=== PATIENT | male | born 1930 | race Caucasian/White ===

== ENCOUNTER 2016-12-16 10:30 | Emergency (ER) | payer OTHER ==
[2016-12-16 10:38] VITALS: BP 147/85; PULSE 92; TEMP 97.2; BMI 36.1
--- NOTE | 2016-12-16 10:54 | PDOC ---
History of Present Illness - General Chief Complaint: Pain Stated Complaint: LEFT FOOT/BIG TOE PAIN Time Seen by Provider: 12/16/16 10:35 - History of Present Illness Initial Comments: 12/16/16 13:09 Chief complaint: Swelling and redness great toe History of present illness: Symptoms since this morning. One prior episode in the distant past. Drinks a considerable amount of alcohol, several beers each night. Eats a lot of red meat. Review of systems: No chest pain, shortness of breath, abdominal pain, nausea, vomiting, diarrhea, visual or focal neurologic symptoms, unsteadiness of gait, urinary tract symptoms, fever/chills, headache, URI symptoms, sore throat, cough. Past medical history: One episode of gout in the past. Otherwise no active medical problems, no medications at home Social/family history lives alone, cares for self, drinks a few beers each night , no tobacco or nonprescription drugs, frequent visitation by friends. Fully ambulatory. Physical exam: Alert and oriented was without well-nourished no acute distress tearful and cooperative Afebrile, vital signs normal There is erythema, swelling, and tenderness of the right MTP J. There is no deformity. There is been no trauma. Impression: Gout Plan: Symptomatic treatment, follow-up by primary physician Dr. Osullivan, diet advice prescribed. To cut down on alcohol consumption as well. Fully ambulatory , feeling much better with treatment in the ER, pain is improved and erythema and swelling have already begun to subside. Past History - Past Medical History Allergies/Adverse Reactions: Allergies Allergy/AdvReac Type Severity Reaction Status Date / Time No Known Allergies Allergy Verified 12/16/16 10:32 Home Medications: Ambulatory Orders Naproxen [Naprosyn] 375 mg PO BID #10 tablet 12/16/16 No Known Home Medication 12/16/16 Anemia: No Asthma: No Cancer: No Cardiac Disorders: No CVA: No COPD: No CHF: No Dementia: No Diabetes: No GI Disorders: No Disorders: No HTN: No Hypercholesterolemia: No Liver Disease: No Seizures: No Thyroid Disease: No Other medical history: DENIES - Psycho/Social/Smoking Cessation Hx Suicidal Ideation: No Smoking History: Never smoked Have you smoked in the past 12 months: No Information on smoking cessation initiated: No Hx Alcohol Use: ("few beers a day") Drug/Substance Use Hx: No Substance Use Type: Alcohol Hx Substance Use Treatment: No *Physical Exam - Vital Signs Last Vital Signs Temp Pulse Resp BP Pulse Ox 97.2 F L 92 H 18 147/85 97 12/16/16 10:30 12/16/16 10:30 12/16/16 10:30 12/16/16 10:30 12/16/16 10:30 ED Treatment Course - LABORATORY CBC & Chemistry Diagram: 12/16/16 11:00 12/16/16 11:00 *DC/Admit/Observation/Transfer Diagnosis at time of Disposition: Gout Qualifiers: Gout site: toe Gout etiology: idiopathic Laterality: right Chronicity: acute Qualified Code(s): M10.071 - Idiopathic gout, right ankle and foot - Discharge Dispostion Disposition: HOME Condition at time of disposition: Improved Admit: No - Prescriptions Prescriptions: Naproxen [Naprosyn] 375 mg PO BID #10 tablet - Referrals Referrals: Bernardino Singh MD [Primary Care Provider] - 1 week - Patient Instructions Printed Discharge Instructions: DI for Gout, Low-Purine Diet
[2016-12-16] MEDS ORDERED: KETOROLAC TROMETHAMINE 60 MG/2 ML VIAL IM ONE (10:56)
[2016-12-16] MEDS ORDERED: KETOROLAC TROMETHAMINE 30 MG/1 ML VIAL ONE (11:03)
[2016-12-16 11:18] LABS: MCH 27.9 pg (25.7-33.7); MCHC 33.2 g/dl (32.0-35.9); MEAN CELL VOLUME 84.2 fl (80-96); MEAN PLT VOLUME 8.4 fl (7.5-11.1); PLATELET COUNT 221 K/MM3 (134-434); RDW 13.4 % (11.9-15.9); WHITE BLOOD COUNT 9.7 K/mm3 (4.0-10.8)
[2016-12-16 11:41] LABS: ALBUMIN 3.7 g/dl (3.5-5.0); ALK PHOS 56 U/L (32-92); ANION GAP 9 (8-16); BILIRUBIN,TOTAL 0.5 mg/dl (0.2-1.0); CALCIUM 9.1 mg/dl (8.4-10.2); CO2 24 mmol/L (22-28); GLUCOSE,RANDOM 144 mg/dl (74-106); SGOT/AST 19 U/L (10-42); SGPT/ALT 10 U/L (10-40); TOT PROT 6.5 g/dl (6.4-8.3)
[2016-12-16 14:43] LABS: PLATELET ESTIMATE ADEQUATE (NORMAL)
== END 2016-12-16 12:35 | disposition home or self-care (01) ==
LOC: FER 10:30
PROC: 3E0233Z Introduction of Anti-inflammatory into Muscle, Percutaneous Approach (ICD-10-PCS; principal; 2016-12-16)
DX: M10.071 Idiopathic gout, right ankle and foot (principal)
CPT/HCPCS: 36415; 80053; 84550; 85025; 96372; 99283-25

== ENCOUNTER 2017-06-29 12:01 | Inpatient (IN) | payer OTHER ==
[2017-06-29] MEDS ORDERED: dilTIAZem HCL 125 MG/25 ML - 25 ML VIAL ONE ×4 (12:18→17:05)
[2017-06-29] MEDS ORDERED: SODIUM CHLORIDE 0.9% 1000 ML INFUS.BAG IV ONE (12:19)
[2017-06-29] MEDS ORDERED: dilTIAZem HCL 50 MG/10 ML - 10 ML VIAL IVPUSH ONE ×3 (12:21→15:36)
[2017-06-29 12:23] VITALS: BMI 21.4
--- NOTE | 2017-06-29 12:25 | PDOC ---
Attending Attestation - Resident Resident Name: Sarah Young - HPI HPI: 06/29/17 15:53 Pt presents to the ED after found on the floor in his appartment. As per the patient, he has been on the floor " on and off" for the last 4 days. Patient reports a heavy drinking history, and was found on the ground surrounded by multiple empty liquor bottles. Denies medical history. - Physicial Exam PE: 06/29/17 16:00 Agree with resident's exam. Patient is tachycardic into the 150's with an irregularly irregular HR. + tongue fasiculations. patient appears dehydrated, with dry skin and tenting. - Medical Decision Making 06/29/17 16:02 Pt presents to the ED with new onset a fib and possible ETOH withdrawal. HR improving after hydration, ativan and cardizem. Will admit to medicine, continue IV hydration and titration of HR with cardizem and ativan.
[2017-06-29] MEDS ORDERED: diazePAM CARPU-JECT 10 MG/2 ML DISP.SYRIN IVPUSH ONE (12:34)
[2017-06-29] MEDS ORDERED: LORazepam 2 MG/ML SDV VIAL ONE ×2 (12:42→13:56)
[2017-06-29 12:53] LABS: BASOPHIL 0.4 % (0-2.0); EOSINOPHIL 0.1 % (0-4.5); MCH 26.5 pg (25.7-33.7); MCHC 32.2 g/dl (32.0-35.9); MEAN CELL VOLUME 82.2 fl (80-96); MEAN PLT VOLUME 7.8 fl (7.5-11.1); NEUTROPHILS 90.1 % (42.8-82.8); PLATELET COUNT 268 K/MM3 (134-434); RDW 14.2 % (11.9-15.9); WHITE BLOOD COUNT 10.7 K/mm3 (4.0-10.0)
[2017-06-29] MEDS ORDERED: SODIUM CHLORIDE 500 ML IV ONE (12:56)
[2017-06-29 13:18] LABS: ANION GAP 15 (8-16); CO2 20 mmol/L (21-32); CREATININE 0.8 mg/dL (0.7-1.3); GLUCOSE,RANDOM 208 mg/dL (74-106); MAGNESIUM 2.3 mg/dL (1.8-2.4); SGOT/AST 36 U/L (15-37); SGPT/ALT 21 U/L (12-78)
[2017-06-29 13:22] LABS: ALK PHOS 58 U/L (45-117); BILIRUBIN,TOTAL 0.8 mg/dL (0.2-1.0); CPK 545 IU/L (39-308); TOT PROT 6.5 g/dl (6.4-8.2); TROPONIN I 0.02 ng/ml (0.00-0.05)
--- NOTE | 2017-06-29 14:21 | PDOC ---
History of Present Illness - General Chief Complaint: Weakness Stated Complaint: WEAKNESS Time Seen by Provider: 06/29/17 12:18 History Source: Patient - History of Present Illness Initial Comments: 06/29/17 16:26 Patient is a 87 y.o. male who BIBAB to our ED after he was found laying on the floor surrounded by bottles of hard liquor. As per EMS police had to break down the door because friends were concerned as patient had not been seen in 2- 3 days though alan notes he saw patient at his baseline (ambulatory, A&O x3 ) 2 days previous. On presentation patient was A&O x3 and states he fell and had either been on the floor 1 day or 4 days, he couldn't recall. Patient denies any pain in his extremities though does note uncertainty regarding head trauma or LOC. Past History - Past Medical History Allergies/Adverse Reactions: Allergies Allergy/AdvReac Type Severity Reaction Status Date / Time No Known Allergies Allergy Verified 06/29/17 12:20 Home Medications: Ambulatory Orders NK [No Known Home Medication] 06/29/17 Anemia: No Asthma: No Cancer: No Cardiac Disorders: No CVA: No COPD: No CHF: No Dementia: No Diabetes: No GI Disorders: No Disorders: No HTN: No Hypercholesterolemia: No Liver Disease: No Seizures: No Thyroid Disease: No - Suicide/Smoking/Psychosocial Hx Smoking History: Unknown if ever smoked Have you smoked in the past 12 months: No Hx Alcohol Use: ("few beers a day") Drug/Substance Use Hx: No Substance Use Type: Alcohol Hx Substance Use Treatment: No Review of Systems - Review of Systems Able to Perform ROS?: No *Physical Exam - Vital Signs Last Vital Signs Temp Pulse Resp BP Pulse Ox 98.5 F 101 H 18 123/72 97 06/29/17 14:06 06/29/17 14:06 06/29/17 14:06 06/29/17 14:06 06/29/17 14:06 - Physical Exam General Appearance: Yes: Thin HEENT: positive: JONATHAN. negative: Scleral Icterus (R), Scleral Icterus (L), TM Bulging, TM Dull, TM Erythema Neck: positive: Trachea midline, Supple Respiratory/Chest: positive: Lungs Clear, Normal Breath Sounds. negative: Decreased Breath Sounds, Paradoxal Breathing, Crackles, Rales, Stridor, Wheezing Cardiovascular: positive: S1, S2, Tachycardia Gastrointestinal/Abdominal: positive: Normal Bowel Sounds, Flat, Soft Musculoskeletal: positive: Normal Inspection. negative: CVA Tenderness, Vertebral Tenderness Extremity: positive: Normal Capillary Refill, Normal Inspection, Pelvis Stable Integumentary: positive: Normal Color, Dry, Warm Neurologic: positive: Fully Oriented, Alert, Other (B/L LE strength 4/5; LE strength 4/5 B/L; palpable pulses, patient able to move all extremities) ED Treatment Course - LABORATORY CBC & Chemistry Diagram: 06/29/17 12:37 06/29/17 12:37 - ADDITIONAL ORDERS Additional order review: Laboratory Results 06/29/17 06/29/17 12:37 12:33 Sodium 139 Potassium 4.2 Chloride 104 Carbon Dioxide 20 L D Anion Gap 15 BUN 26 H D Creatinine 0.8 Creat Clearance w eGFR > 60 Random Glucose 208 H D Lactic Acid 1.9 Calcium 8.0 L Magnesium 2.3 Total Bilirubin 0.8 D AST 36 D ALT 21 Alkaline Phosphatase 58 D Creatine Kinase 545 H Troponin I 0.02 Total Protein 6.5 Albumin 3.0 L 06/29/17 12:37 RBC 4.47 MCV 82.2 MCHC 32.2 RDW 14.2 MPV 7.8 Neutrophils % 90.1 H D Lymphocytes % 3.3 L D Monocytes % 6.1 Eosinophils % 0.1 D Basophils % 0.4 - RADIOLOGY Radiology Studies Ordered: Category Date Time Status HEAD CT WITHOUT CONTRAST [CT] Stat CT Scan 06/29/17 12:19 Taken CHEST X-RAY PORTABLE* [RAD] Stat Radiology 06/29/17 12:51 Taken - Medications Given in the ED: ED Medications Discontinued Medications Generic Name Dose Route Start Last Admin Trade Name Freq PRN Reason Stop Dose Admin Diazepam 10 mg 06/29/17 12:34 06/29/17 12:44 Valium Injection - IVPUSH 06/29/17 12:35 Not Given ONCE ONE Diltiazem HCl 10 mg 06/29/17 12:21 06/29/17 12:23 Cardizem Injection - IVPUSH 06/29/17 12:22 10 mg ONCE ONE Administration Diltiazem HCl 20 mg 06/29/17 13:49 06/29/17 14:04 Cardizem Injection - IVPUSH 06/29/17 13:50 20 mg ONCE ONE Administration Sodium Chloride 500 mls @ 500 mls/hr 06/29/17 12:56 06/29/17 12:56 Normal Saline - IV 06/29/17 13:55 500 mls/hr ASDIR ONE Administration Lorazepam 2 mg 06/29/17 12:42 06/29/17 12:44 Ativan Injection - IVPUSH 06/29/17 12:43 2 mg ONCE ONE Administration Lorazepam 2 mg 06/29/17 13:49 06/29/17 14:04 Ativan Injection - IVPUSH 06/29/17 13:50 2 mg ONCE ONE Administration Sodium Chloride 500 ml 06/29/17 12:19 06/29/17 12:23 Normal Saline - IV 06/29/17 12:20 500 ml ONCE ONE Administration Medical Decision Making - Medical Decision Making 06/29/17 16:33 Patient is a 87 y.o. male who presents after being found down at home surrounded by alcohol bottles. On presentation patient is A&O x3, pelvis stable , able to move all extremities, has no C-spine or vertebral tenderness. As patient is tachycardic (140's) @ presentation, patient given Dilitiazem IV x2 with intermittent resolution of tachycardia. PLAN: 1. CT Head 2. CBC, CMP, Mg, Lactic Acid Reassess 06/29/17 16:39 EKG shows AFib with RVR (HR 145). Lactic Acid wnL, CBC shows no leukocytosis. CT Head negative for acute intracranial process, CXR shows not acute cardiopulmonary process. Patient continues to be A&O x3, concern for alcohol withdrawal - Ativan 2 mg; will order Librium PRN. As patient has new onset Afib - needs full evaluation for possible A/C though likely not indicated given significant risk factors. Patient admitted to inpatient medicine service for further evaluation. Will continue to monitor while in Emergency Department. *DC/Admit/Observation/Transfer Diagnosis at time of Disposition: Alcohol intoxication - Discharge Dispostion Admit: Yes - Referrals Referrals: Bernardino Singh MD [Primary Care Provider] - - Patient Instructions - Post Discharge Activity
[2017-06-29] MEDS ORDERED: chlordiazePOXIDE HCL 25 MG CAPSULE PO ONE (15:03)
[2017-06-29] MEDS ORDERED: dilTIAZem HCL 30 MG TABLET (FP) PO ONE (15:18)
[2017-06-29] MEDS ORDERED: FOLIC ACID INJECTION - 1 MG, THIAMINE HCL 100 MG, MULTIVIT INJECTION ADULT 10 ML in SOD... IVPB ONE (16:58)
[2017-06-29] MEDS ORDERED: LORazepam 1 MG TABLET PO PRN (17:13)
[2017-06-29 17:31] LABS: ARTERIAL BLD GAS O2 SATURATION 97.9 % (90-98.9); ARTERIAL BLOOD GAS HCO3 20.4 meq/L (22-26); ARTERIAL BLOOD GAS PO2 98.2 mmHg (68-100); ARTERIAL BLOOD GAS pH 7.41 (7.35-7.45)
--- NOTE | 2017-06-29 17:34 | HP ---
CHIEF COMPLAINT: Pt was found on floor HISTORY OF PRESENT ILLNESS: Mr. Davis is a 87yo M who was brought by ambulance after being found laying on the floor surrounded by alcohol bottles. As per EMS, the friends had not seen patient in couple of days. According to the charts, the EMS police had to break down the door of the apartment. On presentation in the ED, the patient was AAOx3 , stated that he fell, could not recall for how many days. The patient had denied pain. In the ER, the patient was afebrile and tachycardic. EKG shows new onset Atrial fibrillation with RVR, HR in 130s-140s. Blood pressure was stable. The patient was started on IVF 500mL x2, Cardizem 40mg IV, and Ativan IV 2mg x2. Head CT was negative for acute process. CXR shows possible developing RLL process. PAST MEDICAL HISTORY: None as per chart PAST SURGICAL HISTORY: Unable to assess Social History: Unable to assess Allergies: No Known Allergies Allergy (Verified 06/29/17 12:20) Home Medications Medication Instructions Recorded NK [No Known Home Medication] 06/29/17 REVIEW OF SYSTEMS: Unable to assess PHYSICAL EXAMINATION Vital Signs Temperature 98.5 F 06/29/17 17:56 Pulse Rate 110 H 06/29/17 17:56 Respiratory Rate 18 06/29/17 17:56 Blood Pressure 127/70 06/29/17 17:56 O2 Sat by Pulse Oximetry (%) 98 06/29/17 17:56 GEN: Somnolent, breathing, responds to sternal rub with noises, not in acute distress, looks comfortable HEENT: PERRLA, unable to assess EOM, no facial/scalp wounds, dry eyes, dry mouth , with dried blood near lips CV: S1, S2, irregularly irregular, tachycardic rate LUNG: Unable to fully assess due to poor effort, grossly clear anteriorly ABD: Soft, uncomfortable to deep palpation MSK: No edema, no erythema, upper extremity tremors, tongue fasciculations RECTAL: Stool in rectal vault, no gross blood NEURO: Face is symmetric, PERRLA, pt withdraws all extremities to painful stimuli, difficult to assess Laboratory Last Values WBC 10.7 K/mm3 (4.0-10.0) H D 06/29/17 12:37 RBC 4.47 M/mm3 (4.00-5.60) 06/29/17 12:37 Hgb 11.8 GM/dL (11.7-16.9) 06/29/17 12:37 Hct 36.7 % (35.4-49) 06/29/17 12:37 MCV 82.2 fl (80-96) 06/29/17 12:37 MCH 26.5 pg (25.7-33.7) 06/29/17 12:37 MCHC 32.2 g/dl (32.0-35.9) 06/29/17 12:37 RDW 14.2 % (11.9-15.9) 06/29/17 12:37 Plt Count 268 K/MM3 (134-434) D 06/29/17 12:37 MPV 7.8 fl (7.5-11.1) 06/29/17 12:37 Neutrophils % 90.1 % (42.8-82.8) H D 06/29/17 12:37 Lymphocytes % 3.3 % (8-40) L D 06/29/17 12:37 Monocytes % 6.1 % (3.8-10.2) 06/29/17 12:37 Eosinophils % 0.1 % (0-4.5) D 06/29/17 12:37 Basophils % 0.4 % (0-2.0) 06/29/17 12:37 Puncture Site Right radial 06/29/17 17:25 ABG pH 7.41 (7.35-7.45) 06/29/17 17:25 ABG pCO2 at Pt Temp 32.7 mmHg (35-45) L 06/29/17 17:25 ABG pO2 at Pt Temp 98.2 mmHg (68-100) 06/29/17 17:25 ABG HCO3 20.4 meq/L (22-26) L 06/29/17 17:25 ABG O2 Sat (Measured) 97.9 % (90-98.9) 06/29/17 17:25 ABG O2 Content 15.1 % vol (15-22) 06/29/17 17:25 ABG Base Excess -3.0 meq/l (-2-2) L 06/29/17 17:25 Esdras Test Positive 06/29/17 17:25 O2 Delivery Device Nasal 06/29/17 17:25 Oxygen Flow Rate 2 06/29/17 17:25 PEEP 0.0 cmH2O 06/29/17 17:25 Sodium 139 mmol/L (136-145) 06/29/17 12:37 Potassium 4.2 mmol/L (3.5-5.1) 06/29/17 12:37 Chloride 104 mmol/L (98-107) 06/29/17 12:37 Carbon Dioxide 20 mmol/L (21-32) L D 06/29/17 12:37 Anion Gap 15 (8-16) 06/29/17 12:37 BUN 26 mg/dL (7-18) H D 06/29/17 12:37 Creatinine 0.8 mg/dL (0.7-1.3) 06/29/17 12:37 Creat Clearance w eGFR > 60 (>60) 06/29/17 12:37 Random Glucose 208 mg/dL (74-106) H D 06/29/17 12:37 Lactic Acid 1.9 mmol/L (0.4-2.0) 06/29/17 12:33 Calcium 8.0 mg/dL (8.5-10.1) L 06/29/17 12:37 Magnesium 2.3 mg/dL (1.8-2.4) 06/29/17 12:37 Total Bilirubin 0.8 mg/dL (0.2-1.0) D 06/29/17 12:37 AST 36 U/L (15-37) D 06/29/17 12:37 ALT 21 U/L (12-78) 06/29/17 12:37 Alkaline Phosphatase 58 U/L (45-117) D 06/29/17 12:37 Creatine Kinase 545 IU/L (39-308) H 06/29/17 12:37 Creatine Kinase Index 1.7 % (0.0-5.0) 06/29/17 12:37 CK-MB (CK-2) 9.287 ng/mL (0.5-3.6) H 06/29/17 12:37 Troponin I 0.02 ng/ml (0.00-0.05) 06/29/17 12:37 Total Protein 6.5 g/dl (6.4-8.2) 06/29/17 12:37 Albumin 3.0 g/dl (3.4-5.0) L 11 12:37 Urine Color Yellow 06/29/17 17:52 Urine Appearance Slcloudy 06/29/17 17:52 Urine pH 5.0 (5.0-8.0) 06/29/17 17:52 Ur Specific [place] 1.023 (1.001-1.035) 06/29/17 17:52 Urine Protein Negative (NEGATIVE) 06/29/17 17:52 Urine Glucose (UA) 2+ (NEGATIVE) H 06/29/17 17:52 Urine Ketones 2+ (NEGATIVE) H 06/29/17 17:52 Urine Blood 2+ (NEGATIVE) H 06/29/17 17:52 Urine Nitrite Negative (NEGATIVE) 06/29/17 17:52 Urine Bilirubin Negative (NEGATIVE) 06/29/17 17:52 Urine Urobilinogen Negative mg/dL (0.2-1.0) 06/29/17 17:52 Urine RBC 67 06/29/17 17:52 Urine WBC < 1 06/29/17 17:52 Urine Mucus Rare 06/29/17 17:52 Opiates Screen Negative ng/ml (MRVIVH=127) 06/29/17 17:52 Methadone Screen Negative ng/ml (OCZXYI=067) 06/29/17 17:52 Barbiturate Screen Negative ng/ml (PGCNXX=318) 06/29/17 17:52 Phencyclidine Screen Negative ng/ml (CUTOFF=25) 11 17:52 Ur Amphetamines Screen Negative ng/ml (KAWJXB=754) 06/29/17 17:52 MDMA (Ecstasy) Screen Negative ng/ml (ICAMPX=918) 06/29/17 17:52 Benzodiazepines Screen Negative ng/ml (ZQJUCD=679) 06/29/17 17:52 Cocaine Screen Negative ng/ml (GFHHRX=768) 06/29/17 17:52 U Marijuana (THC) Screen Negative ng/ml (CUTOFF=50) 06/29/17 17:52 Active Medications Generic Name Dose Route Start Last Admin Trade Name Freq PRN Reason Stop Dose Admin Aspirin 300 mg 06/30/17 10:00 Asa - [place] DAILY [facility] Folic Acid 1 mg 06/30/17 10:00 Folic Acid - PO DAILY [facility] Heparin Sodium (Porcine) 5,000 unit 06/29/17 22:00 Heparin - SQ TID KAREN Folic Acid 1 mg/ Thiamine HCl 1,000 mls @ 125 mls/hr 06/29/17 16:58 06/29/17 17:25 100 mg/ Multivitamins/Minerals IVPB 06/30/17 00:57 125 mls/hr 10 ml/ Sodium Chloride ONCE ONE Administration Diltiazem HCl 125 mg/ Dextrose 125 mls @ 5 mls/hr 06/29/17 17:15 06/29/17 17: 49 IV 5 mg/hr TITR KAREN 5 mls/hr Protocol Administration 5 MG/HR Sodium Chloride 1,000 mls @ 100 mls/hr 06/30/17 01:00 Normal Saline - IV ASDIR KAREN Lorazepam 1 mg 06/29/17 17:13 Ativan - PO Q4H PRN WITHDRAWAL(CONT SUBST) Lorazepam 1 mg 06/29/17 17:13 Ativan Injection - IVPUSH Q4H PRN WITHDRAWAL(CONT SUBST) Pantoprazole Sodium 40 mg 06/30/17 10:00 Protonix Iv IVPUSH DAILY [facility] Thiamine HCl 200 mg 06/30/17 10:00 Vitamin B1 Injection - IVPB DAILY [facility] ASSESSMENT/PLAN: Mr. Davis is an 87yo M with no significant PMHx, found on the floor with empty alcohol bottles around him, found to be in Afib with RVR. # New Onset Afib w/ RVR - no prior records, 2/2 acute alcoholic intox vs dehydration vs underlying Afib rhythm - Hemodynamically stable, s/p Cardizem 40mg IV in ER, will place on Cardizem drip, titrate up as needed, tele monitoring - Echo, cardio consult, [id number] high, will hold off on AC for now, fall concern, start ASA # EtOH Abuse - BAL pending, CIWA score Q4H, Ativan PRN (PO if can take), banana bag, folate, thiamine, IVF afterwards # Altered Mental Status - s/p Ativan in ER, unlikely due to focal neurological process, CT neg for acute fx or bleed, Utox neg, ABG wnl # HAGMA - likely 2/2 alcohol intoxication, monitor for now # Mild Leukocytosis - no concern for infection malcolm, ?RLL developing infiltrate on CXR, afebrile, will assess tmrw # Rhabdomyolysis - likely 2/2 prolonged immobility, continue IVF, monitor CPK in AM # RUL Lung Mass - No fevers, ?mass, will monitor, assess tmrw, likely outpatient monitoring once stable # FEN - Banana bag/IVF, elec wnl, NPO for now, will assess S&S eval tmrw # PPx - HSQ TID, Protonix 40mg IVQD, PT ordered # Dispo - Control HR w/ doyle brewer, [place]AN[place] score Q4H, will need to speak with SW/CM once clinical status improves d/w Dr Do and Dr Leela Valle MD - PGY1 Internal Medicine Visit type - Emergency Visit Emergency Visit: Yes ED Registration Date: 06/29/17 Care time: The patient presented to the Emergency Department on the above date and was hospitalized for further evaluation of their emergent condition. - New Patient This patient is new to me today: Yes Date on this admission: 06/29/17 - Critical Care Critical Care patient: No
[2017-06-29 17:35] LABS: ALLENS TEST POSITIVE
[2017-06-29 17:36] LABS: ART PUNCT SITE RIGHT RADIAL; PT. ON O2? YES
[2017-06-29 17:37] LABS: LPM/O2% 2; TYPE OF O2 NASAL
[2017-06-29] MEDS ORDERED: dilTIAZem HCL 50 MG/10 ML - 10 ML VIAL ONE (17:39)
--- NOTE | 2017-06-29 17:42 | PN ---
Teaching Attending Note Name of Resident: Mirna Valle ATTENDING PHYSICIAN STATEMENT Time of evaluation: 5:00 PM I saw and evaluated the patient. I reviewed the resident's note and discussed the case with the resident. I agree with the resident's findings and plan as documented. SUBJECTIVE: Patient seen and examined, responds to sternal rub and winces but unable to assess for further ROS. OBJECTIVE: Vital Signs Period Temp Pulse Resp BP Sys/Cosby Pulse Ox Last 24 Hr 98.5 F-98.5 F 101-155 18-20 110-152/63-101 96-99 Intake & Output 06/26/17 06/27/17 06/28/17 06/29/17 23:59 23:59 23:59 23:59 Weight 125 lb General: sleeping protecting airway, winces to sternal rub, no distress noted HEENT - PERRLA, atrumatic, normocephalic, dry mucous membrane and lips, dried blood from old trauma to the tongue neck soft, supple, no JVD CVS S1S2 irregular, rapid Chest poor effort, unable to appreciate rales or wheezing abdomen soft, NT, ND, positive bowel sounds, no voluntary or involuntary guarding or rigidity extremities no edema Skin decreased turgor neuro PERRLA, facial symmetry, withdraws all extremities symmetrically, unable to check for sensations, DTR bilaterally symmetric, intermittent fasciculations of all extremities Home Medication List Medication Instructions Recorded Confirmed Type NK [No Known Home Medication] 06/29/17 06/29/17 History Active Medications Generic Name Dose Route Start Last Admin Trade Name Freq PRN Reason Stop Dose Admin Heparin Sodium (Porcine) 5,000 unit 06/29/17 22:00 Heparin - SQ TID KAREN Folic Acid 1 mg/ Thiamine HCl 1,000 mls @ 125 mls/hr 06/29/17 16:58 06/29/17 17:25 100 mg/ Multivitamins/Minerals IVPB 06/30/17 00:57 125 mls/hr 10 ml/ Sodium Chloride ONCE ONE Administration Diltiazem HCl 125 mg/ Dextrose 125 mls @ 5 mls/hr 06/29/17 17:15 IV TITR KAREN Protocol 5 MG/HR Sodium Chloride 1,000 mls @ 100 mls/hr 06/30/17 01:00 Normal Saline - IV ASDIR KAREN Lorazepam 1 mg 06/29/17 17:13 Ativan - PO Q4H PRN WITHDRAWAL(CONT SUBST) Lorazepam 1 mg 06/29/17 17:13 Ativan Injection - IVPUSH Q4H PRN WITHDRAWAL(CONT SUBST) Laboratory Results - last 24 hr 06/29/17 06/29/17 06/29/17 12:33 12:37 12:37 WBC 10.7 H D RBC 4.47 Hgb 11.8 Hct 36.7 MCV 82.2 MCH 26.5 MCHC 32.2 RDW 14.2 Plt Count 268 D MPV 7.8 Neutrophils % 90.1 H D Lymphocytes % 3.3 L D Monocytes % 6.1 Eosinophils % 0.1 D Basophils % 0.4 Puncture Site ABG pH ABG pCO2 at Pt Temp ABG pO2 at Pt Temp ABG HCO3 ABG O2 Sat (Measured) ABG O2 Content ABG Base Excess Esdras Test O2 Delivery Device Oxygen Flow Rate PEEP Sodium 139 Potassium 4.2 Chloride 104 Carbon Dioxide 20 L D Anion Gap 15 BUN 26 H D Creatinine 0.8 Creat Clearance w eGFR > 60 Random Glucose 208 H D Lactic Acid 1.9 Calcium 8.0 L Magnesium 2.3 Total Bilirubin 0.8 D AST 36 D ALT 21 Alkaline Phosphatase 58 D Creatine Kinase 545 H Creatine Kinase Index 1.7 CK-MB (CK-2) 9.287 H Troponin I 0.02 Total Protein 6.5 Albumin 3.0 L 06/29/17 17:25 WBC RBC Hgb Hct MCV MCH MCHC RDW Plt Count MPV Neutrophils % Lymphocytes % Monocytes % Eosinophils % Basophils % Puncture Site Right radial ABG pH 7.41 ABG pCO2 at Pt Temp 32.7 L ABG pO2 at Pt Temp 98.2 ABG HCO3 20.4 L ABG O2 Sat (Measured) 97.9 ABG O2 Content 15.1 ABG Base Excess -3.0 L Esdras Test Positive O2 Delivery Device Nasal Oxygen Flow Rate 2 PEEP 0.0 Sodium Potassium Chloride Carbon Dioxide Anion Gap BUN Creatinine Creat Clearance w eGFR Random Glucose Lactic Acid Calcium Magnesium Total Bilirubin AST ALT Alkaline Phosphatase Creatine Kinase Creatine Kinase Index CK-MB (CK-2) Troponin I Total Protein Albumin EKG afib 130s, no acute ST-T changes, artifact Telemetry in ED with Afib 110s CXR reviewed, RUL mass like opacity increased from 05/2016 CT brain no acute process, ventriculomegaly ASSESSMENT AND PLAN: 87 yom found down with ETOH bottles, new onset AFib with RVR, lethargy, and dehydration. -New onset Afib with RVR s/p Cardizem 40 mg IV in Ed place on cardizem drip, cardiology consult, 2D echo. Telemetry, cycle troponins. ASA for now. Address anticoagulation based on clinical course, [id number] and fall concerns. -?ETOH abuse Check ETOH levels/drug screen. banana bag, substance abuse consult when more awake. CIWA protocol with ativan prn and aspiration/seizure precautions. -AMS Suspect ETOh related compounded by ativan received in the ED. Less likely new infection or neurological process. CT brain neg for acute process. No gross deficit on exam Check drug screen, Benzos only when awake with ongoing symptoms of withdrawal -RUL Lung Mass. No fevers/or concerns for respiratory infection currently. Monitor clinically. Outpatient w/u once clinically improved. Will pursue additional testing inhouse if new or concerning symptoms noted. -Rhabdomyolysis IVF, repeat CPK. -Severe dehydration IV hydration. -GIPPX with protonix -DVTPPx with heparin dispo will need PT/OT eval, social work/substance abuse/CM consult once clinically improved. Unable to address code status currently with patient. Anticipate atleast 2-3 days given above. Total admit time spent 55 min.
[2017-06-29] MEDS: DILTIAZEM INJECTION 125 MG in DEXTROSE 5%-WATER - 100 ML IV SCH (17:49)
[2017-06-29 18:00] LABS: URINE APPEARANCE SLCLOUDY; URINE BILIRUBIN NEGATIVE (NEGATIVE); URINE BLOOD 2+ (NEGATIVE); URINE COLOR YELLOW; URINE GLUCOSE (UA) 2+ (NEGATIVE); URINE KETONE 2+ (NEGATIVE); URINE NITRITE NEGATIVE (NEGATIVE); URINE PROTEIN NEGATIVE (NEGATIVE); URINE UROBILINOGEN NEGATIVE mg/dL (0.2-1.0)
[2017-06-29 18:03] LABS: URINE MUCUS RARE; URINE RBC 67; URINE WBC < 1
--- NOTE | 2017-06-29 18:10 | HP ---
Admitting History and Physical - Primary Care Physician PCP: none - Admission Chief Complaint: found down. alcohol withdrawals History of Present Illness: 87M with no known PMH presents to the Ed after being found down by family members. Patient was down on and off for 4 days on a drinking binge per ED charts. Patient found down with multiple bottles in his vicinity. Patient received Ativan for alcohol withdrawals and was lethargic at time of exam. Noted to be in new onset A. fib - Smoking History Smoking history: Unknown if ever smoked Have you smoked in the past 12 months: No - Alcohol/Substance Use Hx Alcohol Use: ("few beers a day") Home Medications - Allergies Allergies/Adverse Reactions: Allergies Allergy/AdvReac Type Severity Reaction Status Date / Time No Known Allergies Allergy Verified 06/29/17 12:20 - Home Medications Home Medications: Ambulatory Orders NK [No Known Home Medication] 06/29/17 Family Disease History - Family Disease History Family History: Unable to Obtain Review of Systems Unable to obtain ROS, reason: lethargic Physical Examination Vital Signs: Vital Signs Temperature 98.5 F 06/29/17 17:56 Pulse Rate 110 H 06/29/17 17:56 Respiratory Rate 18 06/29/17 17:56 Blood Pressure 127/70 06/29/17 17:56 O2 Sat by Pulse Oximetry (%) 98 06/29/17 17:56 Constitutional: Yes: Other (lethargic. Minimally responsive to sternal rub.) Eyes: Yes: PERRL HENT: Yes: Atraumatic, Other (dry mucous membranes) Neck: Yes: Supple Cardiovascular: Yes: Pulse Irregular, S1, S2. No: Murmur Respiratory: Yes: Other (poor resp effort but clear from the limited exam) Gastrointestinal: Yes: Soft. No: Ascites, Distention, Hepatomegaly, Tenderness ...Rectal Exam: Yes: Sphincter Tone Normal, Other (brown blood on glove) Edema: No Peripheral Pulses: Left Doralis Pedis: 1+, Right Dorsalis Pedis: 2+ Integumentary: Yes: Tenting Neurological: Yes: Lethargy Labs: CBC, BMP 06/29/17 12:37 06/29/17 12:37 Imaging - Results X-ray: Report Reviewed, Image Reviewed Cat Scan: Report Reviewed, Image Reviewed EKG: Image Reviewed Assessment/Plan EKG afib 130s, no acute ST-T changes, artifact Telemetry in ED with Afib 110s CXR reviewed, RUL mass like opacity increased from 05/2016 CT brain no acute process, ventriculomegaly 87M found down in apartment with multiple alcohol bottles in his vicinty now with alcohol withdrawals. Problem list: alcohol abuse alcohol withdrawals Concern for impending delirium tremens new onset Afib with RVR altered mental status lethargy Dehydration/volume depletion history of RUL lung mass increased in size mild Rhabdomyolysis Hyperglycemia concern for possible aspiration Plan: Admit to inpatient telemetry cardiac monitoring start cardizem gtt cardiuology consult continue aspirin rectal may need Anticoagulation Trend troponins Fall precautions PT consult aspiration precautions ativan PRN withdrawals-switch to PO librium when able to take PO monitor for seizures check Utox and alcohol level follow up with pulmonology as outpatient for suspicious lung mass banana bag check B12 folate continue with thiamine folate recheck labs in AM Banana bag IVF HSQ PPI PT consult NPO for now Full H&P to follow 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 - New Patient This patient is new to me today: Yes Date on this admission: 06/29/17 - Critical Care Critical Care patient: No
[2017-06-29 18:21] LABS: URINE MARIJUANA THC NEGATIVE ng/ml (CUTOFF=50)
[2017-06-29 21:15] LABS: TROPONIN I 0.03 ng/ml (0.00-0.05)
[2017-06-29 21:27] LABS: URINE LEUK ESTERASE Negative (NEGATIVE)
[2017-06-29] MEDS: HEPARIN NA (PORCINE) 5,000 UNITS/ML 1ML VIAL SQ SCH (22:12)
[2017-06-30] MEDS ORDERED: SODIUM CHLORIDE 1,000 ML IV SCH (01:00)
[2017-06-30] MEDS: HEPARIN NA (PORCINE) 5,000 UNITS/ML 1ML VIAL SQ SCH ×3 (06:24→21:32)
[2017-06-30 07:25] LABS: BASOPHIL 0.4 % (0-2.0); EOSINOPHIL 0.7 % (0-4.5); MCH 27.1 pg (25.7-33.7); MEAN CELL VOLUME 81.9 fl (80-96); MEAN PLT VOLUME 8.2 fl (7.5-11.1); NEUTROPHILS 75.2 % (42.8-82.8); PLATELET COUNT 219 K/MM3 (134-434); RDW 14.4 % (11.9-15.9); WHITE BLOOD COUNT 5.9 K/mm3 (4.0-10.0)
--- NOTE | 2017-06-30 07:59 | PN ---
Physical Exam: SUBJECTIVE: Patient seen and examined. More awake today. Responds to verbal commands, but confused, still mild somnolence. States he is in no pain. OBJECTIVE: Vital Signs Period Temp Pulse Resp BP Sys/Cosby Pulse Ox Last 24 Hr 97.4 F-98.7 F 94-155 18-20 101-152/60-101 96-99 GEN: Improved, less somnolent, AAOx0, difficult to understand words, protecting airway, responds to verbal commands, NAD HEENT: PERRLA, dry eyes, dry mouth, with dried blood near lips CV: S1, S2, irregularly irregular rhythm LUNG: Unable to fully assess due to poor effort, grossly clear anteriorly ABD: Soft, uncomfortable to deep palpation MSK: No edema, no erythema NEURO: Face is symmetric, PERRLA, MSK 4/5 throughout, sensation intact throughout Laboratory Last Values WBC 5.9 K/mm3 (4.0-10.0) D 06/30/17 05:19 RBC 3.75 M/mm3 (4.00-5.60) L 06/30/17 05:19 Hgb 10.2 GM/dL (11.7-16.9) L D 06/30/17 05:19 Hct 30.8 % (35.4-49) L D 06/30/17 05:19 MCV 81.9 fl (80-96) 06/30/17 05:19 MCH 27.1 pg (25.7-33.7) 06/30/17 05:19 MCHC 33.0 g/dl (32.0-35.9) 06/30/17 05:19 RDW 14.4 % (11.9-15.9) 06/30/17 05:19 Plt Count 219 K/MM3 (134-434) 06/30/17 05:19 MPV 8.2 fl (7.5-11.1) 06/30/17 05:19 Neutrophils % 75.2 % (42.8-82.8) 06/30/17 05:19 Lymphocytes % 14.9 % (8-40) D 06/30/17 05:19 Monocytes % 8.8 % (3.8-10.2) 06/30/17 05:19 Eosinophils % 0.7 % (0-4.5) D 06/30/17 05:19 Basophils % 0.4 % (0-2.0) 06/30/17 05:19 Puncture Site Right radial 06/29/17 17:25 ABG pH 7.41 (7.35-7.45) 06/29/17 17:25 ABG pCO2 at Pt Temp 32.7 mmHg (35-45) L 06/29/17 17:25 ABG pO2 at Pt Temp 98.2 mmHg (68-100) 06/29/17 17:25 ABG HCO3 20.4 meq/L (22-26) L 06/29/17 17:25 ABG O2 Sat (Measured) 97.9 % (90-98.9) 06/29/17 17:25 ABG O2 Content 15.1 % vol (15-22) 06/29/17 17:25 ABG Base Excess -3.0 meq/l (-2-2) L 06/29/17 17:25 Esdras Test Positive 06/29/17 17:25 O2 Delivery Device Nasal 06/29/17 17:25 Oxygen Flow Rate 2 06/29/17 17:25 PEEP 0.0 cmH2O 06/29/17 17:25 Sodium 139 mmol/L (136-145) 06/29/17 12:37 Potassium 4.2 mmol/L (3.5-5.1) 06/29/17 12:37 Chloride 104 mmol/L (98-107) 06/29/17 12:37 Carbon Dioxide 20 mmol/L (21-32) L D 06/29/17 12:37 Anion Gap 15 (8-16) 06/29/17 12:37 BUN 26 mg/dL (7-18) H D 06/29/17 12:37 Creatinine 0.8 mg/dL (0.7-1.3) 06/29/17 12:37 Creat Clearance w eGFR > 60 (>60) 06/29/17 12:37 Random Glucose 208 mg/dL (74-106) H D 06/29/17 12:37 Lactic Acid 1.9 mmol/L (0.4-2.0) 06/29/17 12:33 Calcium 8.0 mg/dL (8.5-10.1) L 06/29/17 12:37 Magnesium 2.3 mg/dL (1.8-2.4) 06/29/17 12:37 Total Bilirubin 0.8 mg/dL (0.2-1.0) D 06/29/17 12:37 AST 36 U/L (15-37) D 06/29/17 12:37 ALT 21 U/L (12-78) 06/29/17 12:37 Alkaline Phosphatase 58 U/L (45-117) D 06/29/17 12:37 Creatine Kinase 424 IU/L (39-308) H 06/29/17 19:45 Creatine Kinase Index 1.7 % (0.0-5.0) 06/29/17 19:45 CK-MB (CK-2) 7.522 ng/mL (0.5-3.6) H 06/29/17 19:45 Troponin I 0.03 ng/ml (0.00-0.05) D 06/29/17 19:45 Total Protein 6.5 g/dl (6.4-8.2) 06/29/17 12:37 Albumin 3.0 g/dl (3.4-5.0) L 06/29/17 12:37 Urine Color Yellow 06/29/17 17:52 Urine Appearance Slcloudy 06/29/17 17:52 Urine pH 5.0 (5.0-8.0) 06/29/17 17:52 Ur Specific [place] 1.023 (1.001-1.035) 06/29/17 17:52 Urine Protein Negative (NEGATIVE) 06/29/17 17:52 Urine Glucose (UA) 2+ (NEGATIVE) H 06/29/17 17:52 Urine Ketones 2+ (NEGATIVE) H 06/29/17 17:52 Urine Blood 2+ (NEGATIVE) H 06/29/17 17:52 Urine Nitrite Negative (NEGATIVE) 06/29/17 17:52 Urine Bilirubin Negative (NEGATIVE) 06/29/17 17:52 Urine Urobilinogen Negative mg/dL (0.2-1.0) 06/29/17 17:52 Ur Leukocyte Esterase Negative (NEGATIVE) 06/29/17 17:52 Urine RBC 67 06/29/17 17:52 Urine WBC < 1 06/29/17 17:52 Urine Mucus Rare 06/29/17 17:52 Opiates Screen Negative ng/ml (MRWAEA=320) 06/29/17 17:52 Methadone Screen Negative ng/ml (FZEVVM=691) 06/29/17 17:52 Barbiturate Screen Negative ng/ml (LLTQZT=047) 06/29/17 17:52 Phencyclidine Screen Negative ng/ml (CUTOFF=25) 06/29/17 17:52 Ur Amphetamines Screen Negative ng/ml (VXJABO=572) 06/29/17 17:52 MDMA (Ecstasy) Screen Negative ng/ml (HBNYPP=240) 06/29/17 17:52 Benzodiazepines Screen Negative ng/ml (GAYBJQ=109) 06/29/17 17:52 Cocaine Screen Negative ng/ml (XYRFFS=386) 06/29/17 17:52 U Marijuana (THC) Screen Negative ng/ml (CUTOFF=50) 06/29/17 17:52 Alcohol, Quantitative Cancelled 06/29/17 17:50 Active Medications Generic Name Dose Route Start Last Admin Trade Name Freq PRN Reason Stop Dose Admin Aspirin 300 mg 06/30/17 10:00 Asa - [place] DAILY KAREN Heparin Sodium (Porcine) 5,000 unit 06/29/17 22:00 06/30/17 06:24 Heparin - SQ 5,000 unit TID KAREN Administration Diltiazem HCl 125 mg/ Dextrose 125 mls @ 5 mls/hr 06/29/17 17:15 06/29/17 17: 49 IV 5 mg/hr TITR KAREN 5 mls/hr Protocol Administration 5 MG/HR Sodium Chloride 1,000 mls @ 100 mls/hr 06/30/17 01:00 06/30/17 06:26 Normal Saline - IV 100 mls/hr ASDIR KAREN Administration Lorazepam 1 mg 06/29/17 17:13 Ativan - PO Q4H PRN WITHDRAWAL(CONT SUBST) Lorazepam 1 mg 06/29/17 17:13 Ativan Injection - IVPUSH Q4H PRN WITHDRAWAL(CONT SUBST) Pantoprazole Sodium 40 mg 06/30/17 10:00 Protonix Iv IVPUSH DAILY KAREN Thiamine HCl 200 mg 06/30/17 10:00 Vitamin B1 Injection - IVPB DAILY KAREN ASSESSMENT/PLAN: Mr. Davis is an 87yo M with no significant PMHx, found on the floor with empty alcohol bottles around him, found to be in Afib with RVR. # Altered Mental Status - responsive but AAOx0, ?underlying dementia, unlikely focal neuro process, Utox neg, ABG wnl - Patient's friend Shine Gregg [phone], known pt for 20+years , states pt has been slowly declining mentally for past couple of weeks - With Lung mass (likely CA) along w/ current mental status, will unlikely improve completely, will get palliative on board - Will try to reach closest surrogate ?neice/nephew to discuss goals of care # New Onset Afib w/ RVR - new onset, probably exacerbated by dehydration + alcoholism - HR 100s-110s on Cardizem drip, no tele events, echo wnl, hold off AC due to fall concern + lung mass, cardio on board # EtOH Abuse - Starting to get agitated, changed Ativan IV to 0.5 Q4PRN, cont thiamine IV, folate SQ # RUL Lung Mass - Interval increase in size, along w/ pleural effusions, possible satellite lesions, concern for malignancy # Dehydration - D5NS @ 100cc/hr w/ 500cc bolus IVNS # Mild Leukocytosis - resolved, no concern for infection malcolm # Rhabdomyolysis - improved, 2/2 prolonged immobility, continue IVF # FEN - IVNS 100cc/hr, elec wnl, NPO for now, failed S&S # PPx - HSQ TID, Protonix 40mg IVQD, PT ordered # Dispo - Pt will unlikely improve, concern for lung CA, currently altered, not able to make decisions malcolm, need to speak to SW to contact niece/nephew who are likely his next surrogate (pt is , without children, parents not living) , need to discuss goals of care. d/w Dr Ernestina Valle MD - PGY1 Internal Medicine Visit type - Emergency Visit Emergency Visit: No - New Patient This patient is new to me today: No - Critical Care Critical Care patient: No - Discharge Referral Referred to [facility] No
[2017-06-30 08:09] LABS: ALBUMIN 2.5 g/dl (3.4-5.0); ALK PHOS 47 U/L (45-117); ANION GAP 12 (8-16); BILIRUBIN,TOTAL 0.6 mg/dL (0.2-1.0); CALCIUM 7.5 mg/dL (8.5-10.1); CO2 21 mmol/L (21-32); CREATININE 0.5 mg/dL (0.7-1.3); GLUCOSE,RANDOM 88 mg/dL (74-106); MAGNESIUM 2.3 mg/dL (1.8-2.4); PHOSPHOROUS 2.4 mg/dL (2.5-4.9); SGOT/AST 30 U/L (15-37); SGPT/ALT 16 U/L (12-78); TOT PROT 5.5 g/dl (6.4-8.2)
[2017-06-30] MEDS: PANTOPRAZOLE SODIUM 40 MG VIAL IVPUSH SCH (09:35)
[2017-06-30] MEDS: THIAMINE HCL 200 MG/2 ML VIAL IVPB SCH (09:35)
[2017-06-30] MEDS ORDERED: ASPIRIN 300 MG SUPP.RECT PR SCH (10:00)
[2017-06-30] MEDS ORDERED: FOLIC ACID 1 MG TABLET (FP) PO SCH (10:00)
--- NOTE | 2017-06-30 10:54 | CONSULT ---
Admitting History and Physical - Primary Care Physician PCP: Julio Do - Admission History of Present Illness: Pt presents to the ED after found on the floor in his apartment. As per the patient, he has been on the floor " on and off" for the last 4 days. Patient reports a heavy drinking history, and was found on the ground surrounded by multiple empty liquor bottles Afib Verbal,confused, "Cabrera....Trump" 1980, 89 yo, [facility], wondering why he is here , denies h/o smoking or ETOH intake. Speech imprecise. Cough, congested? CXR- RUL increased masslike opacity, suspicious for malignancy This is my first consult with Mr. Davis. History Source: Medical Record - Smoking History Smoking history: Unknown if ever smoked Have you smoked in the past 12 months: No - Alcohol/Substance Use Hx Alcohol Use: ("few beers a day") History - Admission Reason For Visit: ATRIAL FIBRILLATION - Diagnostics X-ray: Report Reviewed CT Scan: Report Reviewed - General Mental Status: Awake and Alert, Able to Follow Commands, Forgetful, Vague Attention: Intact Ability to Follow Directions: Fair Head/Neck Control: Good - Hearing Hearing: Functional Speech Evaluation - Communication Primary Language: CROATIAN Communication: Yes: Simple Responses Oral Expression Ability: Yes: Mild Impairment, Moderate Impairment - Speech Production Intelligibility: Yes: Mildly Impaired, Moderately Impaired - Speech Characteristics Voice Loudness: Mildly Soft/Quiet Voice Pitch: Yes: Normal Voice Phonatory-based Quality: Yes: Dysphonia, Vocal Wetness Speech Pattern: Impaired Speech Clarity: < 50% Articulation: Yes: Imprecise - Language/Auditory Comprehension Follows: Yes: 1 Stage Simple Commands - Swallow Evaluation/Bedside Assessment Current Nutritional Intake: NPO Dentition: Yes: Edentulous Facial Symmetry at Rest: Symmetrical Facial Symmetry on Retraction: Symmetrical Facial Movement: Controlled Pucker Lips: Normal Smile: Normal Lingual Movement: Normal, Symmetric Lingual Comment: dry, striated,dried blood on tongue and lips Laryngeal Movement: Able to Palpate, Reduced Excursion, Labored,delay initiation , Reduced Velocity Bolus Size: Small Labial Seal: WFL Oral Prep Time: WFL A-P Transit: WFL Pocketing: None Timing of Swallow: Delayed Coughing/Throat Clear: Yes (thin liquids) Change in Voice: Yes (wet, gurgly) Recommendations - Speech Evaluation, Impression/Plan Impression: Impaired intelligibilty,dry tongue,responsive cough with thin liquid , Swallow is delayed in onset, reduced rom and vom of laryngeal excursion. CXR/ CT head noted. - Disposition Discharge to: To be Determined - Dysphagia Impressions/Plan Swallowing Skills: Impaired Dysphagia Impressions: Moderate Impairment, Risk of Aspiration *Silent aspiration: cannot be R/O at bedside Recommendations: MBS w Esophagus (when medically stable.) - Recommendations Medication Administration: Crushed with applesauce
[2017-06-30] MEDS ORDERED: DEXTROSE 5%-NORMAL SALINE 1,000 ML IV SCH (11:30)
--- NOTE | 2017-06-30 11:43 | CON.CARD ---
Cardiology Consult (text) - Consultation Consultation Note: cc: found at home on floor hpi: 87 m no known pmhx found at home on floor. Pt poor historian. Per charts he was found in his apt laying on floor with several bottles of etoh. Pt does not recall events of ending up on floor. Currently he reports feeling well. No cp, sob, palps, dizzy, pnd, orthopnea, le edema. Found to be in afib with rvr in ER and started on dilt. pmh: per hpi psh: nc social: +etoh abuse ros: per hpi; no nvd, cough, walsh, gib, hematuria, dysuria, muscle pains meds: Home Medications Medication Instructions Recorded NK [No Known Home Medication] 06/29/17 pe: Vital Signs Period Temp Pulse Resp BP Sys/Cosby Pulse Ox Last 24 Hr 97.4 F-98.7 F 94-155 18-20 101-152/60-101 96-99 nad no jvd irreg, tachy, s1s2 no mrg cta bl nl eff awake, alert, appropriate no jaundice diaphoresis pos dp pt no carotid bruits abd nt nd pos bs no le e/c/c Laboratory Last Values WBC 5.9 K/mm3 (4.0-10.0) D 06/30/17 05:19 RBC 3.75 M/mm3 (4.00-5.60) L 06/30/17 05:19 Hgb 10.2 GM/dL (11.7-16.9) L D 06/30/17 05:19 Hct 30.8 % (35.4-49) L D 06/30/17 05:19 MCV 81.9 fl (80-96) 06/30/17 05:19 MCH 27.1 pg (25.7-33.7) 06/30/17 05:19 MCHC 33.0 g/dl (32.0-35.9) 06/30/17 05:19 RDW 14.4 % (11.9-15.9) 06/30/17 05:19 Plt Count 219 K/MM3 (134-434) 06/30/17 05:19 MPV 8.2 fl (7.5-11.1) 06/30/17 05:19 Neutrophils % 75.2 % (42.8-82.8) 06/30/17 05:19 Lymphocytes % 14.9 % (8-40) D 06/30/17 05:19 Monocytes % 8.8 % (3.8-10.2) 06/30/17 05:19 Eosinophils % 0.7 % (0-4.5) D 06/30/17 05:19 Basophils % 0.4 % (0-2.0) 06/30/17 05:19 Puncture Site Right radial 06/29/17 17:25 ABG pH 7.41 (7.35-7.45) 06/29/17 17:25 ABG pCO2 at Pt Temp 32.7 mmHg (35-45) L 06/29/17 17:25 ABG pO2 at Pt Temp 98.2 mmHg (68-100) 06/29/17 17:25 ABG HCO3 20.4 meq/L (22-26) L 06/29/17 17:25 ABG O2 Sat (Measured) 97.9 % (90-98.9) 06/29/17 17:25 ABG O2 Content 15.1 % vol (15-22) 06/29/17 17:25 ABG Base Excess -3.0 meq/l (-2-2) L 06/29/17 17:25 Esdras Test Positive 06/29/17 17:25 O2 Delivery Device Nasal 06/29/17 17:25 Oxygen Flow Rate 2 06/29/17 17:25 PEEP 0.0 cmH2O 06/29/17 17:25 Sodium 145 mmol/L (136-145) 06/30/17 05:19 Potassium 3.7 mmol/L (3.5-5.1) 06/30/17 05:19 Chloride 112 mmol/L (98-107) H 06/30/17 05:19 Carbon Dioxide 21 mmol/L (21-32) 06/30/17 05:19 Anion Gap 12 (8-16) 06/30/17 05:19 BUN 17 mg/dL (7-18) D 06/30/17 05:19 Creatinine 0.5 mg/dL (0.7-1.3) L D 06/30/17 05:19 Creat Clearance w eGFR > 60 (>60) 06/30/17 05:19 Random Glucose 88 mg/dL (74-106) D 06/30/17 05:19 Hemoglobin A1c % 5.7 % (4.8-6.0) D 06/30/17 05:19 Lactic Acid 1.9 mmol/L (0.4-2.0) 06/29/17 12:33 Calcium 7.5 mg/dL (8.5-10.1) L 06/30/17 05:19 Phosphorus 2.4 mg/dL (2.5-4.9) L 06/30/17 05:19 Magnesium 2.3 mg/dL (1.8-2.4) 06/30/17 05:19 Total Bilirubin 0.6 mg/dL (0.2-1.0) D 06/30/17 05:19 AST 30 U/L (15-37) 06/30/17 05:19 ALT 16 U/L (12-78) D 06/30/17 05:19 Alkaline Phosphatase 47 U/L (45-117) 06/30/17 05:19 Creatine Kinase 470 IU/L (39-308) H 06/30/17 05:19 Creatine Kinase Index 1.6 % (0.0-5.0) 06/30/17 05:19 CK-MB (CK-2) 7.754 ng/mL (0.5-3.6) H 06/30/17 05:19 Troponin I 0.03 ng/ml (0.00-0.05) D 06/29/17 19:45 Total Protein 5.5 g/dl (6.4-8.2) L 06/30/17 05:19 Albumin 2.5 g/dl (3.4-5.0) L 06/30/17 05:19 Vitamin B12 1618 pg/ml (180-914) H 06/30/17 05:19 Urine Color Yellow 06/29/17 17:52 Urine Appearance Slcloudy 06/29/17 17:52 Urine pH 5.0 (5.0-8.0) 06/29/17 17:52 Ur Specific [place] 1.023 (1.001-1.035) 06/29/17 17:52 Urine Protein Negative (NEGATIVE) 06/29/17 17:52 Urine Glucose (UA) 2+ (NEGATIVE) H 06/29/17 17:52 Urine Ketones 2+ (NEGATIVE) H 06/29/17 17:52 Urine Blood 2+ (NEGATIVE) H 06/29/17 17:52 Urine Nitrite Negative (NEGATIVE) 06/29/17 17:52 Urine Bilirubin Negative (NEGATIVE) 06/29/17 17:52 Urine Urobilinogen Negative mg/dL (0.2-1.0) 06/29/17 17:52 Ur Leukocyte Esterase Negative (NEGATIVE) 06/29/17 17:52 Urine RBC 67 06/29/17 17:52 Urine WBC < 1 06/29/17 17:52 Urine Mucus Rare 06/29/17 17:52 Opiates Screen Negative ng/ml (EOGTRE=912) 06/29/17 17:52 Methadone Screen Negative ng/ml (GZGOXJ=253) 06/29/17 17:52 Barbiturate Screen Negative ng/ml (SLJUTD=508) 06/29/17 17:52 Phencyclidine Screen Negative ng/ml (CUTOFF=25) 06/29/17 17:52 Ur Amphetamines Screen Negative ng/ml (TIYBWG=005) 06/29/17 17:52 MDMA (Ecstasy) Screen Negative ng/ml (GTEYGY=730) 06/29/17 17:52 Benzodiazepines Screen Negative ng/ml (JBXCAM=868) 06/29/17 17:52 Cocaine Screen Negative ng/ml (XXHRGL=587) 06/29/17 17:52 U Marijuana (THC) Screen Negative ng/ml (CUTOFF=50) 06/29/17 17:52 Alcohol, Quantitative < 5.0 mg/dl (0-5) 06/30/17 05:19 tele: afib with rvr to 120s at times echo 06/2017: nl lv/rv, mild tr, mr, rvsp 30-40, mild ao root dil ecg: afib with rvr, nl qtc, no ischemic changes cxr: no chf/infiltrates, +rul mass c/w malignancy a/p: 87 m no known pmhx found at home on floor. new afib with rvr: -unable to take po meds due to aspiration risk -cont dilt gtt for now, can increase prn for better rate control -has indication for ac but he is currently not a safe candidate for ac given his etoh abuse/fall risk as well as a possible lung mass/malignancy -after w/u of lung mass complete could consider asa 81 -cont tele -echo unremarkable -tsh ordered possible fall/syncope: -details of event unclear, pt does not recall how he ended up on floor or for how long -likely related to etoh abuse -echo here unremarkable, no signs acs -cont tele
[2017-06-30] MEDS ORDERED: SODIUM CHLORIDE 500 ML IV STA (14:32)
[2017-06-30] MEDS ORDERED: LORazepam 2 MG/ML SDV VIAL IVPUSH PRN ×2 (15:29→16:37)
--- NOTE | 2017-06-30 17:24 | PN ---
Teaching Attending Note Name of Resident: Mirna Valle ATTENDING PHYSICIAN STATEMENT Time of evaluation: 10:50 AM I saw and evaluated the patient. I reviewed the resident's note and discussed the case with the resident. I agree with the resident's findings and plan as documented. SUBJECTIVE: Patient seen and examined, more awake today, oriented to self but unable to state place or time. Coughing noted. OBJECTIVE: Vital Signs Period Temp Pulse Resp BP Sys/Cosby Pulse Ox Last 24 Hr 97.4 F-98.7 F 94-130 18-20 101-139/60-85 97-99 Intake & Output 06/27/17 06/28/17 06/29/17 06/30/17 23:59 23:59 23:59 23:59 Intake Total 1060 Balance 1060 Weight 125 lb General: sitting in bed in no acute distress, still with some dry skin and mucous membrane CVS: S1S2 irregular, rapid Chest: few occasional rales, no wheezing Abdomen: soft, NT, ND, positive bowel sounds Extremities: no edema Neuro AA Oriented to self, facial symmetry, EOMI, PERRLA, power 4/5 generalized Home Medication List Medication Instructions Recorded Confirmed Type NK [No Known Home Medication] 06/29/17 06/29/17 History Active Medications Generic Name Dose Route Start Last Admin Trade Name Freq PRN Reason Stop Dose Admin Aspirin 300 mg 06/30/17 10:00 06/30/17 09:35 Asa - [place] 300 mg DAILY KAREN Administration Folic Acid 1 mg 06/30/17 13:30 Folic Acid Injection - SQ DAILY KAREN Heparin Sodium (Porcine) 5,000 unit 06/29/17 22:00 06/30/17 15:47 Heparin - SQ 5,000 unit TID KAREN Administration Diltiazem HCl 125 mg/ Dextrose 125 mls @ 5 mls/hr 06/29/17 17:15 06/30/17 11: 50 IV 10 mg/hr TITR KAREN 10 mls/hr Protocol Titration 5 MG/HR Dextrose/Sodium Chloride 1,000 mls @ 100 mls/hr 06/30/17 11:30 06/30/17 11:50 D5-Ns - IV 100 mls/hr ASDIR KAREN Administration Lorazepam 1 mg 06/29/17 17:13 Ativan - PO Q4H PRN WITHDRAWAL(CONT SUBST) Lorazepam 0.5 mg 06/30/17 16:37 Ativan Injection - IVPUSH Q4H PRN WITHDRAWAL(CONT SUBST) Pantoprazole Sodium 40 mg 06/30/17 10:00 06/30/17 09:35 Protonix Iv IVPUSH 40 mg DAILY KAREN Administration Thiamine HCl 200 mg 06/30/17 10:00 06/30/17 09:35 Vitamin B1 Injection - IVPB 200 mg DAILY KAREN Administration CT chest RUL lung mass, larger than before ASSESSMENT AND PLAN: 87 yom unclear PMHx, found on floor with alcohol bottles, brought in with AMS, found with new onset Afib with RVR. -AMS, suspect encephalopathy from dehydration/alcohol, no clinical evidence of infectious process. -New onset afib with RVR -?ETOH abuse with withdrawal -RUL lung mass -Aspiration risk -Plan: More awake and alert, continue to hydrate and monitor. CIWA protocol with low dose ativan. Cardizem drip to 10 mg/hr, titrate up as needed. ASA as able to take PO. Hold off on anticoagulation given fall risk, ETOH abuse concern now with enlarging lung mass. Monitor respiratory status, aspiration precautions, low threshold for antibiotics. High risk for PNA, monitor fevers, worsening WBC or respiratory status. Speech/swallow eval, palliative care input, attempt to address surrogate/decision maker to discuss overall goals of care given likely progressive cognitive decline, suspect poor baseline functional status, now with aspiration risk/NPO status and enlarging lung mass. PT/OT eval, CM consult for d/c planning.
[2017-06-30] MEDS: DILTIAZEM INJECTION 125 MG in DEXTROSE 5%-WATER - 100 ML IV SCH (18:12)
[2017-06-30] MEDS: FOLIC ACID 5 MG/1 ML SQ SCH (18:12)
[2017-07-01] MEDS: HEPARIN NA (PORCINE) 5,000 UNITS/ML 1ML VIAL SQ SCH ×3 (06:24→21:17)
[2017-07-01 07:50] LABS: MCH 26.8 pg (25.7-33.7); MCHC 32.5 g/dl (32.0-35.9); MEAN CELL VOLUME 82.4 fl (80-96); MEAN PLT VOLUME 7.8 fl (7.5-11.1); PLATELET COUNT 209 K/MM3 (134-434); RDW 14.3 % (11.9-15.9); WHITE BLOOD COUNT 3.8 K/mm3 (4.0-10.0)
[2017-07-01 08:06] LABS: ANION GAP 5 (8-16); CALCIUM 7.2 mg/dL (8.5-10.1); CO2 27 mmol/L (21-32); CREATININE 0.6 mg/dL (0.7-1.3); GLUCOSE,RANDOM 132 mg/dL (74-106)
[2017-07-01 08:15] LABS: THYROID STIMULATING HORMONE 1.87 uIU/ml (0.358-3.74)
[2017-07-01] MEDS ORDERED: DEXTROSE 5%-NORMAL SALINE 980 ML with POTASSIUM CHLORIDE 40 MEQ IVPB SCH (09:15)
[2017-07-01] MEDS ORDERED: KCL 10 MEQ IVPB 10 MEQ/100 ML INFUS.BAG IVPB SCH (09:45)
[2017-07-01] MEDS: THIAMINE HCL 200 MG/2 ML VIAL IVPB SCH (10:26)
[2017-07-01] MEDS: PANTOPRAZOLE SODIUM 40 MG VIAL IVPUSH SCH (10:26)
[2017-07-01] MEDS ORDERED: POTASSIUM CHLORIDE 20 MEQ in SODIUM CHLORIDE 250 ML IVPB ONE (10:30)
[2017-07-01] MEDS: FOLIC ACID 5 MG/1 ML SQ SCH (10:30)
[2017-07-01] MEDS: ASPIRIN 300 MG SUPP.RECT RC SCH (10:31)
[2017-07-01] MEDS: D5-NS + 20 MEQ KCL - 20 MEQ/1,000 ML INFUS.BAG IV SCH (10:45)
--- NOTE | 2017-07-01 10:48 | PN ---
Teaching Attending Note Name of Resident: Jay Jay Otero ATTENDING PHYSICIAN STATEMENT Time of evaluation: 8:45 AM I saw and evaluated the patient. I reviewed the resident's note and discussed the case with the resident. I agree with the resident's findings and plan as documented. SUBJECTIVE: Patient seen and examined. More awake, oriented to self, but not to place or time, able to converse well and answer questions appropriately.Denies any pain, dypsnea, dizziness, fevers/chills, abdominal or urinary symptoms. Doesn't report to drinking a lot. Unsure how ended up in the hospital. OBJECTIVE: Vital Signs Period Temp Pulse Resp BP Sys/Cosby Pulse Ox Last 24 Hr 97.7 F-98.8 F 72-130 20-20 117-155/66-86 96 Intake & Output 06/28/17 06/29/17 06/30/17 07/01/17 23:59 23:59 23:59 23:59 Intake Total 1060 1200 Balance 1060 1200 Weight 125 lb General: sitting in bed in no acute distress, dry lips, dried blood on tongue, no use of acessory muscles of respiration CVS: S1S2 irregular Chest: poor effort, no rales or wheezing appreciated Abdomen: soft, NT, ND, positive bowel sounds extremities: no edema, no tremors Neuro: AA, oriented to self, speech occasionally incomprehensible from dried tongue/lips, facial symmetry, no pronator drift, sensation intact to light touch , follows commands appropriately Home Medication List Medication Instructions Recorded Confirmed Type NK [No Known Home Medication] 06/29/17 06/29/17 History Active Medications Generic Name Dose Route Start Last Admin Trade Name Shaheed PRN Reason Stop Dose Admin Aspirin 300 mg 07/01/17 06:02 07/01/17 10:31 Asa - RC 300 mg DAILY KAREN Administration Folic Acid 1 mg 06/30/17 13:30 07/01/17 10:30 Folic Acid Injection - SQ 1 mg DAILY KAREN Administration Heparin Sodium (Porcine) 5,000 unit 06/29/17 22:00 07/01/17 06:24 Heparin - SQ 5,000 unit TID KAREN Administration Dextrose/Sodium Chloride 20 meq in 1,000 mls @ 100 mls/hr 07/01/17 09:15 07/07 10:45 Dextrose 5%-Normal Saline+20 Meq Kcl - IV 100 mls/hr ASDIR KAREN Administration Potassium Chloride 20 meq/ 260 mls @ 130 mls/hr 07/01/17 10:30 Sodium Chloride IVPB 07/01/17 12:29 ONCE ONE Lorazepam 1 mg 06/29/17 17:13 Ativan - PO Q4H PRN WITHDRAWAL(CONT SUBST) Lorazepam 0.5 mg 06/30/17 16:37 Ativan Injection - IVPUSH Q4H PRN WITHDRAWAL(CONT SUBST) Pantoprazole Sodium 40 mg 06/30/17 10:00 07/01/17 10:26 Protonix Iv IVPUSH 40 mg DAILY KAREN Administration Thiamine HCl 200 mg 06/30/17 10:00 07/01/17 10:26 Vitamin B1 Injection - IVPB 200 mg DAILY KAREN Administration Laboratory Results - last 24 hr 06/30/17 06/30/17 07/01/17 16:54 23:05 06:00 WBC RBC Hgb Hct MCV MCH MCHC RDW Plt Count MPV Sodium 147 H Potassium 3.1 L Chloride 115 H Carbon Dioxide 27 D Anion Gap 5 L BUN 9 D Creatinine 0.6 L POC Glucometer 105 137 Random Glucose 132 H D Calcium 7.2 L TSH 1.87 D 07/01/17 07/01/17 06:00 06:05 WBC 3.8 L D RBC 3.61 L Hgb 9.7 L Hct 29.8 L MCV 82.4 MCH 26.8 MCHC 32.5 RDW 14.3 Plt Count 209 MPV 7.8 Sodium Potassium Chloride Carbon Dioxide Anion Gap BUN Creatinine POC Glucometer 130 Random Glucose Calcium TSH ASSESSMENT AND PLAN: 87 yom unclear PMHx, found on floor with alcohol bottles, brought in with AMS, found with new onset Afib with RVR. -AMS, suspect encephalopathy from dehydration/alcohol, no clinical evidence of infectious process. -New onset afib with RVR,reverted to NSR on 06/30, off cardizem drip -?ETOH abuse with withdrawal -RUL lung mass, with episode of scant hemoptysis -Anemia, suspect hemoconcentrated on admission now trended down with hydration with scant hemoptysis, less likely ongoing bleed. -Aspiration risk -Rhabdymyolysis -Hypoglycemia -Hypokalemia -Plan: Awake and alert, Ox1, but able to converse appropriately follow commands and comprehend conversations. Reverted to NSR, off cardizem drip, monitor for now, metoprolol IV prn for SBP > 120 sustained. Transition to PO when able. ASA when able to take PO. 2D echo noted. Cardiology input appreciated. Given fall risk, ?ETOH abuse and now with enlarging lung mass, poor candidate for full dose anti-coagulation. Low dose ativan prn for withdrawal, folate/thiamine/MVI. Change IVF to D5NS with K, Replete K Daily CBC and monitor for new episodes of hemoptysis, pulmonary consult. Speech/swallow eval noted, check MBS, NPO. Reevaluate as mental status improves. Unlikely would want PEG based on overall clinical status and patient' s current expressed wishes. If continues to fail, will need to address option of palliative care and comfort feeds. DIscussed wiht patient in detail about enlarging lung mass. Patient Ox1 but able to comprehend questions, relay understanding and answer appropriately. Yariel would want his lung mass to be 'left alone', also when discussed code status, expresses wishes of not wanting CPR/intubation and would want to be ' left alone'. Yariel has a sister that lives in [place], unable to provide contact info. Will contact social work and palliative to address overall goals of care. COntinue goals of discussion with patient as mental status continues to improve and attempt to reach next of kin. Heparin with caution, monitor CBC. PT/OT eval and CM/social work/palliative care consult. Dispo planning pending above.
--- NOTE | 2017-07-01 12:44 | PN ---
Progress Note (short form) - Note Progress Note: s: no cp sob palps dizzy o: Vital Signs Period Temp Pulse Resp BP Sys/Cosby Pulse Ox Last 24 Hr 97.7 F-98.8 F 72-114 20-20 117-155/66-86 93-97 nad no jvd irreg, tachy, s1s2 no mrg cta bl nl eff awake, alert, appropriate no jaundice diaphoresis abd nt nd pos bs no le e/c/c Current Medications Generic Name Dose Route Start Last Admin Trade Name Freq PRN Reason Stop Dose Admin Aspirin 300 mg 07/01/17 06:02 07/01/17 10:31 Asa - RC 300 mg DAILY KAREN Administration Folic Acid 1 mg 06/30/17 13:30 07/01/17 10:30 Folic Acid Injection - SQ 1 mg DAILY KAREN Administration Heparin Sodium (Porcine) 5,000 unit 06/29/17 22:00 07/01/17 06:24 Heparin - SQ 5,000 unit TID KAREN Administration Dextrose/Sodium Chloride 20 meq in 1,000 mls @ 100 mls/hr 07/01/17 09:15 07/07 10:45 Dextrose 5%-Normal Saline+20 Meq Kcl - IV 100 mls/hr ASDIR KAREN Administration Lorazepam 1 mg 06/29/17 17:13 Ativan - PO Q4H PRN WITHDRAWAL(CONT SUBST) Lorazepam 0.5 mg 06/30/17 16:37 Ativan Injection - IVPUSH Q4H PRN WITHDRAWAL(CONT SUBST) Metoprolol Tartrate 5 mg 07/01/17 11:12 Lopressor Injection - IVPUSH Q4H PRN HYPERTENSION Pantoprazole Sodium 40 mg 06/30/17 10:00 07/01/17 10:26 Protonix Iv IVPUSH 40 mg DAILY KAREN Administration Thiamine HCl 200 mg 06/30/17 10:00 07/01/17 10:26 Vitamin B1 Injection - IVPB 200 mg DAILY KAREN Administration CBC, BMP 07/01/17 06:00 07/01/17 06:00 tele: sr, pacs echo 06/2017: nl lv/rv, mild tr, mr, rvsp 30-40, mild ao root dil ecg: afib with rvr, nl qtc, no ischemic changes cxr: no chf/infiltrates, +rul mass c/w malignancy a/p: 87 m no known pmhx found at home on floor. new afib with rvr: -unable to take po meds due to aspiration risk -now in sr, converted on own -has indication for ac but he is currently not a safe candidate for ac given his etoh abuse/fall risk as well as a possible lung mass/malignancy -after w/u of lung mass complete could consider asa 81 -cont tele -echo unremarkable -tsh wnl possible fall/syncope: -details of event unclear, pt does not recall how he ended up on floor or for how long -likely related to etoh abuse -echo here unremarkable, no signs acs -cont tele
[2017-07-01 13:11] LABS: MAGNESIUM 2.2 mg/dL (1.8-2.4)
--- NOTE | 2017-07-01 15:01 | EKG ---
Test Reason : Blood Pressure : / mmHG Vent. Rate : 070 BPM Atrial Rate : 070 BPM P-R Int : 178 ms QRS Dur : 092 ms QT Int : 540 ms P-R-T Axes : 015 -24 060 degrees QTc Int : 583 ms NORMAL SINUS RHYTHM WITH SUPRAVENTRICULAR PREMATURE BEATS. INTRAATRIAL CONDUCTION ABNORMALITY INCOMPLETE RIGHT BUNDLE BRANCH BLOCK NONSPECIFIC T WAVE ABNORMALITY ABNORMAL ECG WHEN COMPARED WITH ECG OF 29-JUN-2017 12:16, SINUS RHYTHM HAS REPLACED ATRIAL FIBRILLATION VENT. RATE HAS DECREASED BY 75 BPM NONSPECIFIC T WAVE ABNORMALITY NO LONGER EVIDENT IN INFERIOR LEADS NONSPECIFIC T WAVE ABNORMALITY, WORSE IN LATERAL LEADS Confirmed by SLICK SNOW MD ([id number]) on 07/01/2017 3:01:21 PM Referred By: Nora GUEVARA Confirmed By:SLICK SNOW MD
--- NOTE | 2017-07-01 15:30 | CON.PULM ---
Consult Consult Specialty:: PULMONARY Referred by:: Dr. Do Reason for Consultation:: lung mass - History of Present Illness Chief Complaint: found on floor History of Present Illness: 87yo male without significant past medical history who was admitted after being found on the floor with several bottles of alcohol. Found to be in rapid afib, started on cardizem gtt and transferred to telemetry. During admission work up, CT chest was done showing a 4.5cm RUL mass. Prior imaging done in February 2016 as outpt showed a 2.7cm nodule at that time. Pt is a poor historian but denies fevers, chills or night sweats. He does endorse unintentional weight loss. He is a former smoker. Does not know of any cancer in the family. - History Source History Provided By: Patient, Medical Record Limitations to Obtaining History: Clinical Condition - Alcohol/Substance Use Hx Alcohol Use: ("few beers a day") - Smoking History Smoking history: Unknown if ever smoked Have you smoked in the past 12 months: No Home Medications - Allergies Allergies/Adverse Reactions: Allergies Allergy/AdvReac Type Severity Reaction Status Date / Time No Known Allergies Allergy Verified 06/29/17 12:20 - Home Medications Home Medications: Ambulatory Orders NK [No Known Home Medication] 06/29/17 Review of Systems - Review of Systems Constitutional: reports: Unintentional Wgt. Loss. denies: Chills, Fever Eyes: denies: Recent Change in Vision HENT: denies: Nasal Congestion, Throat Pain Neck: denies: Stiffness, Tenderness Cardiovascular: denies: Chest Pain, Shortness of Breath Respiratory: denies: Cough, Wheezing Gastrointestinal: denies: Abdominal Pain, Nausea, Vomiting Genitourinary: denies: Dysuria, Hematuria Musculoskeletal: denies: Joint Pain Neurological: denies: Dizziness, Headache Physical Exam Vital Sings: Vital Signs Temperature 98.5 F 07/01/17 14:39 Pulse Rate 90 07/01/17 14:39 Respiratory Rate 20 07/01/17 08:25 Blood Pressure 144/73 07/01/17 14:39 O2 Sat by Pulse Oximetry (%) 97 07/01/17 11:22 Constitutional: Yes: Thin, Other (disheveled) Eyes: Yes: Conjunctiva Clear, EOM Intact HENT: Yes: Atraumatic, Normocephalic Neck: Yes: Supple, Trachea Midline Cardiovascular: Yes: Regular Rate and Rhythm Respiratory: Yes: Diminished (distant breath sounds) ...Clubbing: No Gastrointestinal: Yes: Normal Bowel Sounds, Soft. No: Tenderness Edema: No Neurological: Yes: Alert Labs: CBC, BMP 07/01/17 06:00 07/01/17 06:00 ABG Results ABG pH 7.41 (7.35-7.45) 06/29/17 17:25 ABG pCO2 at Pt Temp 32.7 mmHg (35-45) L 06/29/17 17:25 ABG pO2 at Pt Temp 98.2 mmHg (68-100) 06/29/17 17:25 ABG HCO3 20.4 meq/L (22-26) L 06/29/17 17:25 ABG O2 Sat (Measured) 97.9 % (90-98.9) 06/29/17 17:25 ABG O2 Content 15.1 % vol (15-22) 06/29/17 17:25 ABG Base Excess -3.0 meq/l (-2-2) L 06/29/17 17:25 Imaging - Results Cat Scan: Report Reviewed, Image Reviewed (RUL mass) Problem List - Problems (1) Atrial fibrillation with rapid ventricular response Code(s): I48.91 - UNSPECIFIED ATRIAL FIBRILLATION (2) Lung mass Code(s): R91.8 - OTHER NONSPECIFIC ABNORMAL FINDING OF LUNG FIELD (3) Alcohol dependence Code(s): F10.20 - ALCOHOL DEPENDENCE, UNCOMPLICATED (4) Pulmonary hypertension Code(s): I27.20 - PULMONARY HYPERTENSION, UNSPECIFIED Assessment/Plan New Onset Atrial Fibrillation with RVR now in sinus Lung Mass suspicious for malignancy Pulmonary HTN Alcohol Dependence - mass is peripheral, can likely obtain diagnosis with CT guided needle biopsy - if biopsy nondiagnostic, can consider bronchoscopy as it does appear endobronchial but then would require anesthesia and cardiac clearance - will order LE dopplers to investigate etiology of new onset atrial fibrillation - anticoagulation per cardiology - monitor for withdrawal symptoms - will follow with you Thank you for this consult Ehsan Richter MD
[2017-07-02] MEDS: HEPARIN NA (PORCINE) 5,000 UNITS/ML 1ML VIAL SQ SCH ×3 (06:12→21:45)
[2017-07-02] MEDS: AMPICILLIN NA/SULBACTAM NA 3 GM in SODIUM CHLORIDE 100 ML IVPB SCH ×3 (08:45→21:45)
[2017-07-02 09:04] LABS: ALBUMIN 2.1 g/dl (3.4-5.0); ALK PHOS 51 U/L (45-117); ANION GAP 11 (8-16); BILIRUBIN,TOTAL 0.8 mg/dL (0.2-1.0); CALCIUM 7.2 mg/dL (8.5-10.1); CO2 24 mmol/L (21-32); CREATININE 0.5 mg/dL (0.7-1.3); GLUCOSE,RANDOM 84 mg/dL (74-106); SGOT/AST 18 U/L (15-37); SGPT/ALT 14 U/L (12-78); TOT PROT 4.9 g/dl (6.4-8.2)
[2017-07-02] MEDS: D5-NS + 20 MEQ KCL - 20 MEQ/1,000 ML INFUS.BAG IV SCH (09:22)
[2017-07-02] MEDS: FOLIC ACID 5 MG/1 ML SQ SCH (09:23)
[2017-07-02] MEDS: ASPIRIN 300 MG SUPP.RECT RC SCH (09:23)
[2017-07-02] MEDS: THIAMINE HCL 200 MG/2 ML VIAL IVPB SCH (09:27)
[2017-07-02] MEDS: PANTOPRAZOLE SODIUM 40 MG VIAL IVPUSH SCH (09:27)
[2017-07-02] MEDS ORDERED: KCL 10 MEQ IVPB 10 MEQ/100 ML INFUS.BAG IVPB SCH (09:45)
[2017-07-02 09:49] LABS: BASOPHIL 1.1 % (0-2.0); EOSINOPHIL 1.7 % (0-4.5); MCH 26.9 pg (25.7-33.7); MCHC 32.8 g/dl (32.0-35.9); NEUTROPHILS 67.1 % (42.8-82.8); PLATELET COUNT 205 K/MM3 (134-434); RDW 14.3 % (11.9-15.9); WHITE BLOOD COUNT 4.3 K/mm3 (4.0-10.0)
[2017-07-02] MEDS ORDERED: POTASSIUM CHLORIDE 30 MEQ in SODIUM CHLORIDE 300 ML IVPB ONE (10:30)
--- NOTE | 2017-07-02 11:51 | PN ---
Progress Note (short form) - Note Progress Note: s: no cp sob palps dizzy o: Vital Signs Period Temp Pulse Resp BP Sys/Cosby Pulse Ox Last 24 Hr 97.6 F-99.8 F 73-98 18-20 144-163/71-92 93-97 nad no jvd irreg, tachy, s1s2 no mrg cta bl nl eff awake, alert, appropriate no jaundice diaphoresis abd nt nd pos bs no le e/c/c Current Medications Generic Name Dose Route Start Last Admin Trade Name Freq PRN Reason Stop Dose Admin Aspirin 300 mg 07/01/17 06:02 07/02/17 09:23 Asa - RC 300 mg DAILY KAREN Administration Folic Acid 1 mg 06/30/17 13:30 07/02/17 09:23 Folic Acid Injection - SQ 1 mg DAILY KAREN Administration Heparin Sodium (Porcine) 5,000 unit 06/29/17 22:00 07/02/17 06:12 Heparin - SQ 5,000 unit TID KAREN Administration Dextrose/Sodium Chloride 20 meq in 1,000 mls @ 100 mls/hr 07/01/17 09:15 08/06 09:22 Dextrose 5%-Normal Saline+20 Meq Kcl - IV 100 mls/hr ASDIR KAREN Administration Ampicillin Sodium/Sulbactam 100 mls @ 200 mls/hr 07/02/17 09:00 07/02/17 08: 45 Sodium 3 gm/ Sodium Chloride IVPB 200 mls/hr Q6H-IV KAREN Administration Potassium Chloride 30 meq/ 315 mls @ 88.333 mls/hr 07/02/17 10:30 07/02/17 10 :40 Sodium Chloride IVPB 07/02/17 14:03 88.333 mls/hr ONCE ONE Administration Lorazepam 1 mg 06/29/17 17:13 Ativan - PO Q4H PRN WITHDRAWAL(CONT SUBST) Lorazepam 0.5 mg 06/30/17 16:37 Ativan Injection - IVPUSH Q4H PRN WITHDRAWAL(CONT SUBST) Metoprolol Tartrate 5 mg 07/01/17 11:12 Lopressor Injection - IVPUSH Q4H PRN HYPERTENSION Pantoprazole Sodium 40 mg 06/30/17 10:00 07/02/17 09:27 Protonix Iv IVPUSH 40 mg DAILY KAREN Administration Thiamine HCl 200 mg 06/30/17 10:00 07/02/17 09:27 Vitamin B1 Injection - IVPB 200 mg DAILY KAREN Administration CBC, BMP 07/02/17 06:15 07/02/17 06:15 tele: sr, pacs echo 06/2017: nl lv/rv, mild tr, mr, rvsp 30-40, mild ao root dil ecg: afib with rvr, nl qtc, no ischemic changes cxr: no chf/infiltrates, +rul mass c/w malignancy a/p: 87 m no known pmhx found at home on floor. new afib with rvr: -unable to take po meds due to aspiration risk -now in sr, converted on own -has indication for ac but he is currently not a safe candidate for ac given his etoh abuse/fall risk as well as lung mass/malignancy -echo unremarkable -tsh wnl possible fall/syncope: -details of event unclear, pt does not recall how he ended up on floor or for how long -likely related to etoh abuse -echo here unremarkable, no signs acs
--- NOTE | 2017-07-02 12:03 | PN ---
Teaching Attending Note Name of Resident: Jay Jay Otero ATTENDING PHYSICIAN STATEMENT Time of evaluation: 8:35 AM I saw and evaluated the patient. I reviewed the resident's note and discussed the case with the resident. I agree with the resident's findings and plan as documented. SUBJECTIVE: Patient seen and examined, awake, oriented to self, no complaints. OBJECTIVE: Vital Signs Period Temp Pulse Resp BP Sys/Cosby Pulse Ox Last 24 Hr 97.6 F-99.8 F 71-98 18-20 144-163/71-92 93-97 Intake & Output 06/29/17 06/30/17 07/01/17 07/02/17 23:59 23:59 23:59 23:59 Intake Total 1060 1200 600 Balance 1060 1200 600 Weight 125 lb General: lying in bed in no acute distress CVS: S1S2 irregular Chest: poor effort, no rales or wheezing appreciated Abdomen: soft, NT, ND, positive bowel sounds Extremities: no edema Neuro AA, oriented to self, unchanged exam Home Medication List Medication Instructions Recorded Confirmed Type NK [No Known Home Medication] 06/29/17 06/29/17 History Active Medications Generic Name Dose Route Start Last Admin Trade Name Shaheed PRN Reason Stop Dose Admin Aspirin 300 mg 07/01/17 06:02 07/02/17 09:23 Asa - RC 300 mg DAILY KAREN Administration Folic Acid 1 mg 06/30/17 13:30 07/02/17 09:23 Folic Acid Injection - SQ 1 mg DAILY KAREN Administration Heparin Sodium (Porcine) 5,000 unit 06/29/17 22:00 07/02/17 06:12 Heparin - SQ 5,000 unit TID KAREN Administration Dextrose/Sodium Chloride 20 meq in 1,000 mls @ 100 mls/hr 07/01/17 09:15 08/06 09:22 Dextrose 5%-Normal Saline+20 Meq Kcl - IV 100 mls/hr ASDIR KAREN Administration Ampicillin Sodium/Sulbactam 100 mls @ 200 mls/hr 07/02/17 09:00 07/02/17 08: 45 Sodium 3 gm/ Sodium Chloride IVPB 200 mls/hr Q6H-IV KAREN Administration Potassium Chloride 30 meq/ 315 mls @ 88.333 mls/hr 07/02/17 10:30 07/02/17 10 :40 Sodium Chloride IVPB 07/02/17 14:03 88.333 mls/hr ONCE ONE Administration Lorazepam 1 mg 06/29/17 17:13 Ativan - PO Q4H PRN WITHDRAWAL(CONT SUBST) Lorazepam 0.5 mg 06/30/17 16:37 Ativan Injection - IVPUSH Q4H PRN WITHDRAWAL(CONT SUBST) Metoprolol Tartrate 5 mg 07/01/17 11:12 Lopressor Injection - IVPUSH Q4H PRN HYPERTENSION Pantoprazole Sodium 40 mg 06/30/17 10:00 07/02/17 09:27 Protonix Iv IVPUSH 40 mg DAILY KAREN Administration Thiamine HCl 200 mg 06/30/17 10:00 07/02/17 09:27 Vitamin B1 Injection - IVPB 200 mg DAILY KAREN Administration Laboratory Results - last 24 hr 07/01/17 07/01/17 07/02/17 06:00 22:17 05:49 WBC RBC Hgb Hct MCV MCH MCHC RDW Plt Count MPV Neutrophils % Lymphocytes % Monocytes % Eosinophils % Basophils % Sodium 147 H Potassium 3.1 L Chloride 115 H Carbon Dioxide 27 D Anion Gap 5 L BUN 9 D Creatinine 0.6 L Creat Clearance w eGFR POC Glucometer 102 91 Random Glucose 132 H D Calcium 7.2 L Magnesium 2.2 Total Bilirubin AST ALT Alkaline Phosphatase Total Protein Albumin TSH 1.87 D 07/02/17 07/02/17 06:15 06:15 WBC 4.3 RBC 3.61 L Hgb 9.7 L Hct 29.6 L MCV 82.0 MCH 26.9 MCHC 32.8 RDW 14.3 Plt Count 205 MPV 8.0 Neutrophils % 67.1 Lymphocytes % 17.9 D Monocytes % 12.2 H Eosinophils % 1.7 D Basophils % 1.1 Sodium 145 Potassium 3.1 L Chloride 110 H Carbon Dioxide 24 Anion Gap 11 BUN 8 Creatinine 0.5 L Creat Clearance w eGFR > 60 POC Glucometer Random Glucose 84 D Calcium 7.2 L Magnesium Total Bilirubin 0.8 D AST 18 D ALT 14 Alkaline Phosphatase 51 Total Protein 4.9 L Albumin 2.1 L TSH Microbiology 06/29/17 09:00 Urine - Urine Clean Catch Urine Culture - Final NO GROWTH OBTAINED CT chest results reviewed ASSESSMENT AND PLAN: 87 yom unclear PMHx, found on floor with alcohol bottles, brought in with AMS, found with new onset Afib with RVR. -AMS, suspect encephalopathy from dehydration/alcohol, no clinical evidence of infectious process. -New onset afib with RVR,reverted to NSR on 06/30, off cardizem drip -Low grade fevers, high aspiration risk with lung mass -?ETOH abuse with withdrawal -RUL lung mass, with episode of scant hemoptysis -Anemia, suspect hemoconcentrated on admission now trended down with hydration with scant hemoptysis, less likely ongoing bleed. -Aspiration risk -Rhabdymyolysis -Hypoglycemia -Hypokalemia -Plan: Awake and alert, Ox1, but able to converse appropriately follow commands and comprehend conversations. Reverted to NSR, off cardizem drip, monitor for now, metoprolol IV prn for SBP > 120 sustained. Transition to PO when able. ASA when able to take PO. 2D echo noted. Cardiology input appreciated. Given fall risk, ?ETOH abuse and now with enlarging lung mass, poor candidate for full dose anti-coagulation. Low dose ativan prn for withdrawal, folate/thiamine/MVI. Continue IVF D5NS with K, Additional 30 meq IV K today. Low grade fevers, suspect ongoing aspiration with underlying lung mass. Emperic unasyn for early aspiration PNA, transition to augmentin when able to take PO and clinically stable. Daily CBC and monitor for new episodes of hemoptysis, pulmonary consult noted. Speech/swallow eval noted, check MBS, NPO. Reevaluate as mental status improves. Unlikely would want PEG based on overall clinical status and patient' s current expressed wishes. If continues to fail, will need to address option of palliative care and comfort feeds. DIscussed wiht patient in detail about enlarging lung mass. Patient Ox1 but able to comprehend questions, relay understanding and answer appropriately. Yariel would want his lung mass to be 'left alone', also when discussed code status, expresses wishes of not wanting CPR/intubation and would want to be ' left alone'. Pulmonary input noted, however, involve palliative care to assist in goals of care discussion and address next of kin/possible surrogate. Reports has a sister that lives in [place], unable to provide contact info. however, per friend and neighbor visit yesterday, patient with no sister in [place], family member in [place]. Discuss with social work. Heparin with caution, monitor CBC. PT/OT eval and CM/social work/palliative care consult. Dispo planning pending above.
--- NOTE | 2017-07-02 15:45 | PN ---
Progress Note (short form) - Note Progress Note: PULMONARY Above input from primary team appreciated. Pt denies shortness of breath, cough or wheezing. Last Vital Signs Temp Pulse Resp BP Pulse Ox 98.1 F 71 20 152/71 96 07/02/17 07:54 07/02/17 11:51 07/02/17 08:00 07/02/17 07:54 07/02/17 11:51 Gen: NAD, less confused Heart: RRR Lung: decreased breath sounds at the bases Abd: soft, nontender Ext: no edema CBC, BMP 07/02/17 06:15 07/02/17 06:15 Active Medications Aspirin (Asa -) 300 mg RC DAILY [facility] Last Admin: 07/02/17 09:23 Dose: 300 mg Folic Acid (Folic Acid Injection -) 1 mg SQ DAILY [facility] Last Admin: 07/02/17 09:23 Dose: 1 mg Heparin Sodium (Porcine) (Heparin -) 5,000 unit SQ TID [facility] Last Admin: 07/02/17 15:17 Dose: 5,000 unit Dextrose/Sodium Chloride (Dextrose 5%-Normal Saline+20 Meq Kcl -) 20 meq in 1, 000 mls @ 100 mls/hr IV ASDIR [facility] Last Admin: 07/02/17 09:22 Dose: 100 mls/hr Ampicillin Sodium/Sulbactam (Sodium 3 gm/ Sodium Chloride) 100 mls @ 200 mls/ hr IVPB Q6H-IV [facility] Last Admin: 07/02/17 15:17 Dose: 200 mls/hr Lorazepam (Ativan -) 1 mg PO Q4H PRN PRN Reason: WITHDRAWAL(CONT SUBST) Lorazepam (Ativan Injection -) 0.5 mg IVPUSH Q4H PRN PRN Reason: WITHDRAWAL(CONT SUBST) Metoprolol Tartrate (Lopressor Injection -) 5 mg IVPUSH Q4H PRN PRN Reason: HYPERTENSION Pantoprazole Sodium (Protonix Iv) 40 mg IVPUSH DAILY [facility] Last Admin: 07/02/17 09:27 Dose: 40 mg Thiamine HCl (Vitamin B1 Injection -) 200 mg IVPB DAILY [facility] Last Admin: 07/02/17 09:27 Dose: 200 mg A/P New Onset Atrial Fibrillation with RVR now in sinus Lung Mass suspicious for malignancy Pulmonary HTN Alcohol Dependence - mass is peripheral, can likely obtain diagnosis with CT guided needle biopsy - if biopsy nondiagnostic, can consider bronchoscopy as it does appear endobronchial but then would require anesthesia and cardiac clearance - agree that in light of his age and performance status, pt likely would not be a candidate for treatment - anticoagulation per cardiology - monitor for withdrawal symptoms - DVT prophylaxis Problem List - Problems (1) Atrial fibrillation with rapid ventricular response Code(s): I48.91 - UNSPECIFIED ATRIAL FIBRILLATION (2) Lung mass Code(s): R91.8 - OTHER NONSPECIFIC ABNORMAL FINDING OF LUNG FIELD (3) Alcohol dependence Code(s): F10.20 - ALCOHOL DEPENDENCE, UNCOMPLICATED (4) Pulmonary hypertension Code(s): I27.20 - PULMONARY HYPERTENSION, UNSPECIFIED
[2017-07-02] MEDS ORDERED: hydrALAZINE HCL 20 MG/ML VIAL IVPUSH PRN (16:46)
[2017-07-02] MEDS ORDERED: D5-NS + 20 MEQ KCL - 20 MEQ/1,000 ML INFUS.BAG IV SCH (16:47)
[2017-07-02] MEDS ORDERED: PT OWN MED DRAWER 7, Y5N ONE (21:43)
[2017-07-03] MEDS: METOPROLOL TARTRATE 5 MG/5 ML VIAL IVPUSH PRN ×2 (02:05→06:02)
[2017-07-03] MEDS ORDERED: PT OWN MED DRAWER 7, Y5N ONE ×3 (02:11→15:09)
[2017-07-03] MEDS: AMPICILLIN NA/SULBACTAM NA 3 GM in SODIUM CHLORIDE 100 ML IVPB SCH ×3 (02:21→15:22)
[2017-07-03] MEDS: HEPARIN NA (PORCINE) 5,000 UNITS/ML 1ML VIAL SQ SCH ×3 (06:47→22:12)
[2017-07-03 07:36] LABS: BASOPHIL 0.9 % (0-2.0); EOSINOPHIL 1.7 % (0-4.5); MCH 26.5 pg (25.7-33.7); MCHC 32.7 g/dl (32.0-35.9); MEAN CELL VOLUME 80.9 fl (80-96); MEAN PLT VOLUME 7.9 fl (7.5-11.1); NEUTROPHILS 68.5 % (42.8-82.8); PLATELET COUNT 226 K/MM3 (134-434); RDW 14.3 % (11.9-15.9); WHITE BLOOD COUNT 4.9 K/mm3 (4.0-10.0)
--- NOTE | 2017-07-03 07:46 | PN ---
Teaching Attending Note Name of Resident: Mirna Valle ATTENDING PHYSICIAN STATEMENT Time of evaluation: 9:45 AM I saw and evaluated the patient. I reviewed the resident's note and discussed the case with the resident. I agree with the resident's findings and plan as documented. SUBJECTIVE: Patient seen and examined. no complaints, denies hunger, poor appetite. no complaints. OBJECTIVE: Vital Signs Period Temp Pulse Resp BP Sys/Cosby Pulse Ox Last 24 Hr 98.0 F-98.8 F 71-140 18-20 145-169/65-110 93-96 Intake & Output 06/30/17 07/01/17 07/02/17 07/03/17 23:59 23:59 23:59 23:59 Intake Total 1060 1200 900 825 Balance 1060 1200 900 825 General: sitting in bed in no acute distress CVS: S1S2 irregular, rapid Chest: poor effort Abdomen: soft, NT, ND, positive bowel sounds extremities: no edema Neuro: AA, oriented to self, though was in rehab then was reoriented, not oriented to month or year but able to recall his birthdate, EOMI, facial symmetry, power 4/5 generalized (overall weak and deconditioned), but no gross deficit. Home Medication List Medication Instructions Recorded Confirmed Type NK [No Known Home Medication] 06/29/17 06/29/17 History Active Medications Generic Name Dose Route Start Last Admin Trade Name Freq PRN Reason Stop Dose Admin Aspirin 300 mg 07/01/17 06:02 07/02/17 09:23 Asa - RC 300 mg DAILY [facility] Administration Folic Acid 1 mg 06/30/17 13:30 07/02/17 09:23 Folic Acid Injection - SQ 1 mg DAILY [facility]EN Administration Heparin Sodium (Porcine) 5,000 unit 06/29/17 22:00 07/03/17 06:47 Heparin - SQ 5,000 unit TID [facility]EN Administration Hydralazine HCl 10 mg 07/02/17 16:46 Apresoline Injection - IVPUSH Q6H PRN HYPERTENSION Ampicillin Sodium/Sulbactam 100 mls @ 200 mls/hr 07/02/17 09:00 07/03/17 02: 21 Sodium 3 gm/ Sodium Chloride IVPB 200 mls/hr Q6H-IV K[facility]EN Administration Dextrose/Sodium Chloride 20 meq in 1,000 mls @ 75 mls/hr 07/02/17 16:47 07/02 21:46 Dextrose 5%-Normal Saline+20 Meq Kcl - IV 75 mls/hr ASDIR KAREN Administration Diltiazem HCl 125 mg/ Dextrose 125 mls @ 5 mls/hr 07/03/17 07:30 IVPB TITR KAREN Protocol 5 MG/HR Lorazepam 1 mg 06/29/17 17:13 Ativan - PO Q4H PRN WITHDRAWAL(CONT SUBST) Lorazepam 0.5 mg 06/30/17 16:37 Ativan Injection - IVPUSH Q4H PRN WITHDRAWAL(CONT SUBST) Pantoprazole Sodium 40 mg 06/30/17 10:00 07/02/17 09:27 Protonix Iv IVPUSH 40 mg DAILY [facility] Administration Thiamine HCl 200 mg 06/30/17 10:00 07/02/17 09:27 Vitamin B1 Injection - IVPB 200 mg DAILY [facility]EN Administration Laboratory Results - last 24 hr 07/02/17 07/03/17 07/03/17 21:41 05:27 05:27 WBC 4.9 RBC 4.32 Hgb 11.4 L D Hct 35.0 L D MCV 80.9 MCH 26.5 MCHC 32.7 RDW 14.3 Plt Count 226 MPV 7.9 Neutrophils % 68.5 Lymphocytes % 16.7 Monocytes % 12.2 H Eosinophils % 1.7 Basophils % 0.9 Sodium 140 Potassium 3.5 Chloride 104 Carbon Dioxide 24 Anion Gap 12 BUN 8 Creatinine 0.5 L Creat Clearance w eGFR > 60 POC Glucometer 77 Random Glucose 95 Calcium 7.6 L Magnesium Total Bilirubin 1.1 H D AST 17 ALT 16 Alkaline Phosphatase 57 Total Protein 5.6 L Albumin 2.3 L 07/03/17 07/03/17 05:30 06:16 WBC RBC Hgb Hct MCV MCH MCHC RDW Plt Count MPV Neutrophils % Lymphocytes % Monocytes % Eosinophils % Basophils % Sodium Potassium Chloride Carbon Dioxide Anion Gap BUN Creatinine Creat Clearance w eGFR POC Glucometer 101 Random Glucose Calcium Magnesium Cancelled Total Bilirubin AST ALT Alkaline Phosphatase Total Protein Albumin Microbiology 06/29/17 09:00 Urine - Urine Clean Catch Urine Culture - Final NO GROWTH OBTAINED ASSESSMENT AND PLAN: 87 yom unclear PMHx, found on floor with alcohol bottles, brought in with AMS, found with new onset Afib with RVR, RUL lung mass, possible ongoing aspiration with low grade fevers. -AMS, suspect encephalopathy from dehydration/alcohol, no clinical evidence of infectious process. -New onset afib with RVR,reverted to NSR on 06/30, off cardizem drip, now back in Afib -Low grade fevers, high aspiration risk with lung mass -?ETOH abuse with withdrawal -RUL lung mass, with episode of scant hemoptysis -Anemia, suspect hemoconcentrated on admission now trended down with hydration with scant hemoptysis, stabilized now. -Aspiration risk -Rhabdymyolysis -Hypoglycemia -Hypokalemia -Plan: Awake and alert, able to converse appropriately follow commands and comprehend conversations. Reverted to NSR on 07/01, off cardizem drip, recurrent overnight, resume cardizem drip as unable to take PO. ASA when able to take PO. 2D echo noted. Cardiology input appreciated. Given fall risk, ?ETOH abuse and now with enlarging lung mass, poor candidate for full dose anti-coagulation. Low dose ativan prn for withdrawal, folate/thiamine/MVI. Also suspect sundowning /underlying dementia (per neighbor recent progressive cognitive decline) Increase K in IVF to keep K around 4. Check Mg. Low grade fevers, suspect ongoing aspiration with underlying lung mass. Emperic unasyn day 2 for early aspiration PNA, transition to augmentin when able to take PO and clinically stable. Daily CBC and monitor for new episodes of hemoptysis, pulmonary consult noted. Speech/swallow eval noted, check MBS, NPO. Reevaluate as mental status improves. Unlikely would want PEG based on overall clinical status and patient' s current expressed wishes. If continues to fail, will need to address option of palliative care and comfort feeds. DIscussed wiht patient in detail about enlarging lung mass on 06/30 and again today. Patient able to comprehend questions, relays understanding and answer appropriately. Yariel would want his lung mass to be 'left alone', also when discussed code status, expresses wishes of not wanting CPR/intubation and would want to be 'left alone'. Pulmonary input noted, however, involve palliative care to assist in goals of care discussion and address next of kin/possible surrogate. Yariel has a sister that lives in [place], unable to provide contact info. however, per friend and neighbor visit over the weekend, patient with no sister in [place], family member in [place]. Discuss with social work. Ethics consult, psychiatry input to assess competence ( as feel patient has underlying cognitive dyfunction but is able to clearly express his wishes related to possible lung mass and resuscitation and not wanting aggressive measures). Heparin with caution, monitor CBC. PT/OT eval and CM/social work/palliative care/psychiatry/social/Ethics consult. Continue search for next of kin. Dispo planning pending above.
[2017-07-03 08:10] LABS: ALBUMIN 2.3 g/dl (3.4-5.0); ANION GAP 12 (8-16); CALCIUM 7.6 mg/dL (8.5-10.1); CO2 24 mmol/L (21-32); CREATININE 0.5 mg/dL (0.7-1.3); GLUCOSE,RANDOM 95 mg/dL (74-106); SGOT/AST 17 U/L (15-37); SGPT/ALT 16 U/L (12-78)
[2017-07-03 08:12] LABS: ALK PHOS 57 U/L (45-117); BILIRUBIN,TOTAL 1.1 mg/dL (0.2-1.0); TOT PROT 5.6 g/dl (6.4-8.2)
[2017-07-03] MEDS: DILTIAZEM INJECTION 125 MG in DEXTROSE 5%-WATER - 100 ML IVPB SCH (08:39)
[2017-07-03] MEDS: PANTOPRAZOLE SODIUM 40 MG VIAL IVPUSH SCH (09:40)
[2017-07-03] MEDS: FOLIC ACID 5 MG/1 ML SQ SCH (09:40)
[2017-07-03] MEDS: ASPIRIN 300 MG SUPP.RECT RC SCH (09:40)
[2017-07-03] MEDS: THIAMINE HCL 200 MG/2 ML VIAL IVPB SCH (09:40)
--- NOTE | 2017-07-03 11:28 | PN ---
Physical Exam: SUBJECTIVE: Patient seen and examined. Doing well, no CP and SOB. No episodes of hemoptysis. OBJECTIVE: Vital Signs Period Temp Pulse Resp BP Sys/Cosby Pulse Ox Last 24 Hr 98.0 F-98.8 F 71-140 18-20 145-169/65-110 94-96 GEN: Improved mental status, awake, alert, oriented to person but not to place and year, oriented to birthday, able to have conversation, expresses wishes HEENT: PERRLA, improved volume status, mouth still dry w/ sputum + blood CV: S1, S2, irregularly irregular rhythm LUNG: Unable to fully assess due to poor effort, grossly clear anteriorly ABD: Soft, uncomfortable to deep palpation MSK: No edema, no erythema NEURO: Face is symmetric, PERRLA, MSK 4/5 throughout, sensation intact throughout Laboratory Last Values WBC 4.9 K/mm3 (4.0-10.0) 07/03/17 05:27 RBC 4.32 M/mm3 (4.00-5.60) 07/03/17 05:27 Hgb 11.4 GM/dL (11.7-16.9) L D 07/03/17 05:27 Hct 35.0 % (35.4-49) L D 07/03/17 05:27 MCV 80.9 fl (80-96) 07/03/17 05:27 MCH 26.5 pg (25.7-33.7) 07/03/17 05:27 MCHC 32.7 g/dl (32.0-35.9) 07/03/17 05:27 RDW 14.3 % (11.9-15.9) 07/03/17 05:27 Plt Count 226 K/MM3 (134-434) 07/03/17 05:27 MPV 7.9 fl (7.5-11.1) 07/03/17 05:27 Neutrophils % 68.5 % (42.8-82.8) 07/03/17 05:27 Lymphocytes % 16.7 % (8-40) 07/03/17 05:27 Monocytes % 12.2 % (3.8-10.2) H 07/03/17 05:27 Eosinophils % 1.7 % (0-4.5) 07/03/17 05:27 Basophils % 0.9 % (0-2.0) 07/03/17 05:27 Puncture Site Right radial 06/29/17 17:25 ABG pH 7.41 (7.35-7.45) 06/29/17 17:25 ABG pCO2 at Pt Temp 32.7 mmHg (35-45) L 06/29/17 17:25 ABG pO2 at Pt Temp 98.2 mmHg (68-100) 06/29/17 17:25 ABG HCO3 20.4 meq/L (22-26) L 06/29/17 17:25 ABG O2 Sat (Measured) 97.9 % (90-98.9) 06/29/17 17:25 ABG O2 Content 15.1 % vol (15-22) 06/29/17 17:25 ABG Base Excess -3.0 meq/l (-2-2) L 06/29/17 17:25 Esdras Test Positive 06/29/17 17:25 O2 Delivery Device Nasal 06/29/17 17:25 Oxygen Flow Rate 2 06/29/17 17:25 PEEP 0.0 cmH2O 06/29/17 17:25 Sodium 140 mmol/L (136-145) 07/03/17 05:27 Potassium 3.5 mmol/L (3.5-5.1) 07/03/17 05:27 Chloride 104 mmol/L (98-107) 07/03/17 05:27 Carbon Dioxide 24 mmol/L (21-32) 07/03/17 05:27 Anion Gap 12 (8-16) 07/03/17 05:27 BUN 8 mg/dL (7-18) 07/03/17 05:27 Creatinine 0.5 mg/dL (0.7-1.3) L 07/03/17 05:27 Creat Clearance w eGFR > 60 (>60) 07/03/17 05:27 POC Glucometer 101 UNITS (80-120) 07/03/17 06:16 Random Glucose 95 mg/dL (74-106) 07/03/17 05:27 Hemoglobin A1c % 5.7 % (4.8-6.0) D 06/30/17 05:19 Lactic Acid 1.9 mmol/L (0.4-2.0) 06/29/17 12:33 Calcium 7.6 mg/dL (8.5-10.1) L 07/03/17 05:27 Phosphorus 2.4 mg/dL (2.5-4.9) L 06/30/17 05:19 Magnesium 2.2 mg/dL (1.8-2.4) 07/01/17 06:00 Total Bilirubin 1.1 mg/dL (0.2-1.0) H D 07/03/17 05:27 AST 17 U/L (15-37) 07/03/17 05:27 ALT 16 U/L (12-78) 07/03/17 05:27 Alkaline Phosphatase 57 U/L (45-117) 07/03/17 05:27 Creatine Kinase 470 IU/L (39-308) H 06/30/17 05:19 Creatine Kinase Index 1.6 % (0.0-5.0) 06/30/17 05:19 CK-MB (CK-2) 7.754 ng/mL (0.5-3.6) H 06/30/17 05:19 Troponin I 0.03 ng/ml (0.00-0.05) D 06/29/17 19:45 Total Protein 5.6 g/dl (6.4-8.2) L 07/03/17 05:27 Albumin 2.3 g/dl (3.4-5.0) L 07/03/17 05:27 Vitamin B12 1618 pg/ml (180-914) H 06/30/17 05:19 TSH 1.87 uIU/ml (0.358-3.74) D 07/01/17 06:00 Urine Color Yellow 06/29/17 17:52 Urine Appearance Slcloudy 06/29/17 17:52 Urine pH 5.0 (5.0-8.0) 06/29/17 17:52 Ur Specific [place] 1.023 (1.001-1.035) 06/29/17 17:52 Urine Protein Negative (NEGATIVE) 06/29/17 17:52 Urine Glucose (UA) 2+ (NEGATIVE) H 06/29/17 17:52 Urine Ketones 2+ (NEGATIVE) H 06/29/17 17:52 Urine Blood 2+ (NEGATIVE) H 06/29/17 17:52 Urine Nitrite Negative (NEGATIVE) 06/29/17 17:52 Urine Bilirubin Negative (NEGATIVE) 06/29/17 17:52 Urine Urobilinogen Negative mg/dL (0.2-1.0) 06/29/17 17:52 Ur Leukocyte Esterase Negative (NEGATIVE) 06/29/17 17:52 Urine RBC 67 06/29/17 17:52 Urine WBC < 1 06/29/17 17:52 Urine Mucus Rare 06/29/17 17:52 Opiates Screen Negative ng/ml (YCBIOL=723) 06/29/17 17:52 Methadone Screen Negative ng/ml (CEIJWP=874) 06/29/17 17:52 Barbiturate Screen Negative ng/ml (NQWOIZ=878) 06/29/17 17:52 Phencyclidine Screen Negative ng/ml (CUTOFF=25) 06/29/17 17:52 Ur Amphetamines Screen Negative ng/ml (QUKXYH=992) 06/29/17 17:52 MDMA (Ecstasy) Screen Negative ng/ml (WXFXQS=257) 06/29/17 17:52 Benzodiazepines Screen Negative ng/ml (BHODDW=713) 06/29/17 17:52 Cocaine Screen Negative ng/ml (UEVRHE=934) 06/29/17 17:52 U Marijuana (THC) Screen Negative ng/ml (CUTOFF=50) 06/29/17 17:52 Alcohol, Quantitative < 5.0 mg/dl (0-5) 06/30/17 05:19 Active Medications Generic Name Dose Route Start Last Admin Trade Name Freq PRN Reason Stop Dose Admin Aspirin 300 mg 07/01/17 06:02 07/03/17 09:40 Asa - RC 300 mg DAILY KAREN Administration Folic Acid 1 mg 06/30/17 13:30 07/03/17 09:40 Folic Acid Injection - SQ 1 mg DAILY KAREN Administration Heparin Sodium (Porcine) 5,000 unit 06/29/17 22:00 07/03/17 06:47 Heparin - SQ 5,000 unit TID KAREN Administration Hydralazine HCl 10 mg 07/02/17 16:46 Apresoline Injection - IVPUSH Q6H PRN HYPERTENSION Ampicillin Sodium/Sulbactam 100 mls @ 200 mls/hr 07/02/17 09:00 07/03/17 09: 40 Sodium 3 gm/ Sodium Chloride IVPB 200 mls/hr Q6H-IV KAREN Administration Diltiazem HCl 125 mg/ Dextrose 125 mls @ 5 mls/hr 07/03/17 07:30 07/03/17 08: 39 IVPB 5 mg/hr TITR KAREN 5 mls/hr Protocol Administration 5 MG/HR Dextrose/Sodium Chloride 40 meq in 1,000 mls @ 75 mls/hr 07/03/17 11:30 Dextrose 5%-Normal Saline+40 Meq Kcl - IV ASDIR KAREN Lorazepam 1 mg 06/29/17 17:13 Ativan - PO Q4H PRN WITHDRAWAL(CONT SUBST) Lorazepam 0.5 mg 06/30/17 16:37 Ativan Injection - IVPUSH Q4H PRN WITHDRAWAL(CONT SUBST) Pantoprazole Sodium 40 mg 06/30/17 10:00 07/03/17 09:40 Protonix Iv IVPUSH 40 mg DAILY KAREN Administration Thiamine HCl 200 mg 06/30/17 10:00 07/03/17 09:40 Vitamin B1 Injection - IVPB 200 mg DAILY KAREN Administration ASSESSMENT/PLAN: Mr. Davis is an 87yo M with no significant PMHx, found on the floor with empty alcohol bottles around him, altered, and in Afib with RVR. # New Onset Afib w/ RVR - paroxysmal, was likely 2/2 dehydration + acute EtOH abuse - Re-converted into Afib this AM, transitioned to Cardizem drip, now 10ml/hr , if converts to sinus, can switch to Lopressor 5mg IV PRN for sustained >120 - Echo wnl, TSH wnl, hold off on AC due to fall risk + lung mass, cardio on board # Altered Mental Status - responsive, conversational but AAOx1, likely underlying dementia, unlikely focal neuro process, Utox neg, ABG wnl - Pt is an aspiration risk, failed S&S, NPO for now, modified barium next step - Will get psychiatry consult to assess competency # RUL Lung Mass - Interval increase in size, prior smoker, concern for malignancy - Discussed w/ patient, unlikely wants aggressive measures, expressed wish for lung mass to be left alone, monitor for hemoptysis # Low Grade Fever - resolved, likely 2/2 recurrent aspiration, on empiric IV Unasyn 3g Q6H Day 2 for early asp PNA, transition to PO augmentin when able # EtOH Abuse - Ativan IV to 0.5 Q4PRN, thiamine IV, folate SQ, transition to PO when able # Dehydration - along w/ NPO status, on D5NS w/ KCl 20 @ 75cc/hr # Rhabdomyolysis - improved, 2/2 prolonged immobility, continue IVF # FEN - IVNS 100cc/hr, elec wnl, NPO for now, failed S&S # PPx - HSQ TID, Protonix 40mg IVQD, PT ordered # Code Status - Discussed w/ pt, wishes DNR/DNI, but will need psych to assess competency # Dispo - Unlikely to improve, mentally declining over past couple weeks + concern for lung CA, pt has expressed wishes to be "left alone" but will get psychiatry to comment on competency. If competent, will respect patient's wishes ; if incompetent will have to reach next of kin or obtain Ethics consult for further management. Visit type - Emergency Visit Emergency Visit: No - New Patient This patient is new to me today: No - Critical Care Critical Care patient: No - Discharge Referral Referred to [facility] No
[2017-07-03] MEDS ORDERED: D5-NS + 40 MEQ KCL - 40 MEQ/1,000 ML INFUS.BAG IV SCH (11:30)
[2017-07-03 11:40] LABS: MAGNESIUM 2.2 mg/dL (1.8-2.4)
--- NOTE | 2017-07-03 11:58 | PN ---
Progress Note, Physician History of Present Illness: PULMONARY ALERT,DYSPNEIC AT REST. - Current Medication List Current Medications: Active Medications Aspirin (Asa -) 300 mg RC DAILY [facility] [place] Last Admin: 07/03/17 09:40 Dose: 300 mg Folic Acid (Folic Acid Injection -) 1 mg SQ DAILY [facility] [place] Last Admin: 07/03/17 09:40 Dose: 1 mg Heparin Sodium (Porcine) (Heparin -) 5,000 unit SQ TID [facility] Last Admin: 07/03/17 06:47 Dose: 5,000 unit Hydralazine HCl (Apresoline Injection -) 10 mg IVPUSH Q6H PRN PRN Reason: HYPERTENSION Ampicillin Sodium/Sulbactam (Sodium 3 gm/ Sodium Chloride) 100 mls @ 200 mls/ hr IVPB Q6H-IV [facility]EN Last Admin: 07/03/17 09:40 Dose: 200 mls/hr Diltiazem HCl 125 mg/ Dextrose 125 mls @ 5 mls/hr IVPB TITR KAREN; 5 MG/HR PRN Reason: Protocol Last Admin: 07/03/17 08:39 Dose: 5 mg/hr, 5 mls/hr Dextrose/Sodium Chloride (Dextrose 5%-Normal Saline+40 Meq Kcl -) 40 meq in 1, 000 mls @ 75 mls/hr IV ASDIR KAREN Lorazepam (Ativan -) 1 mg PO Q4H PRN PRN Reason: WITHDRAWAL(CONT SUBST) Lorazepam (Ativan Injection -) 0.5 mg IVPUSH Q4H PRN PRN Reason: WITHDRAWAL(CONT SUBST) Pantoprazole Sodium (Protonix Iv) 40 mg IVPUSH DAILY [facility] [place] Last Admin: 07/03/17 09:40 Dose: 40 mg Thiamine HCl (Vitamin B1 Injection -) 200 mg IVPB DAILY [facility] [place] Last Admin: 07/03/17 09:40 Dose: 200 mg - Objective Vital Signs: Vital Signs Temperature 98.0 F 07/03/17 01:00 Pulse Rate 140 H 07/03/17 06:02 Respiratory Rate 20 07/03/17 04:45 Blood Pressure 145/81 07/03/17 06:02 O2 Sat by Pulse Oximetry (%) 94 L 07/02/17 21:00 Constitutional: Yes: Mild Distress, Thin Eyes: Yes: WNL HENT: Yes: WNL Neck: Yes: WNL Cardiovascular: Yes: Regular Rate and Rhythm, S1, S2 Respiratory: Yes: Diminished Gastrointestinal: Yes: Normal Bowel Sounds, Soft Extremities: Yes: WNL Edema: No Labs: CBC, BMP 07/03/17 05:27 07/03/17 05:27 Assessment/Plan A/P New Onset Atrial Fibrillation with RVR now in sinus Lung Mass suspicious for malignancy Pulmonary HTN Alcohol Dependence - consider conservative treatment in view of his advanced age and poor performance status, pt likely would not be a candidate for treatment - anticoagulation per cardiology - monitor for withdrawal symptoms - DVT prophylaxis Problem List - Problems (1) Atrial fibrillation with rapid ventricular response Code(s): I48.91 - UNSPECIFIED ATRIAL FIBRILLATION (2) Lung mass Code(s): R91.8 - OTHER NONSPECIFIC ABNORMAL FINDING OF LUNG FIELD (3) Alcohol dependence Code(s): F10.20 - ALCOHOL DEPENDENCE, UNCOMPLICATED (4) Pulmonary hypertension Code(s): I27.20 - PULMONARY HYPERTENSION, UNSPECIFIED
--- NOTE | 2017-07-03 12:18 | PN ---
Progress Note, Physician Chief Complaint: afib History of Present Illness: denies cp, palpitations, sob, dizzy - Current Medication List Current Medications: Active Medications Aspirin (Asa -) 300 mg RC DAILY [facility] Last Admin: 07/03/17 09:40 Dose: 300 mg Folic Acid (Folic Acid Injection -) 1 mg SQ DAILY [facility] Last Admin: 07/03/17 09:40 Dose: 1 mg Heparin Sodium (Porcine) (Heparin -) 5,000 unit SQ TID [facility] Last Admin: 07/03/17 06:47 Dose: 5,000 unit Hydralazine HCl (Apresoline Injection -) 10 mg IVPUSH Q6H PRN PRN Reason: HYPERTENSION Ampicillin Sodium/Sulbactam (Sodium 3 gm/ Sodium Chloride) 100 mls @ 200 mls/ hr IVPB Q6H-IV [facility] Last Admin: 07/03/17 09:40 Dose: 200 mls/hr Diltiazem HCl 125 mg/ Dextrose 125 mls @ 5 mls/hr IVPB TITR KAREN; 5 MG/HR PRN Reason: Protocol Last Admin: 07/03/17 08:39 Dose: 5 mg/hr, 5 mls/hr Dextrose/Sodium Chloride (Dextrose 5%-Normal Saline+40 Meq Kcl -) 40 meq in 1, 000 mls @ 75 mls/hr IV ASDIR KAREN Lorazepam (Ativan -) 1 mg PO Q4H PRN PRN Reason: WITHDRAWAL(CONT SUBST) Lorazepam (Ativan Injection -) 0.5 mg IVPUSH Q4H PRN PRN Reason: WITHDRAWAL(CONT SUBST) Pantoprazole Sodium (Protonix Iv) 40 mg IVPUSH DAILY [facility] Last Admin: 07/03/17 09:40 Dose: 40 mg Thiamine HCl (Vitamin B1 Injection -) 200 mg IVPB DAILY [facility] Last Admin: 07/03/17 09:40 Dose: 200 mg - Objective Vital Signs: Vital Signs Temperature 98.0 F 07/03/17 01:00 Pulse Rate 140 H 07/03/17 06:02 Respiratory Rate 20 07/03/17 04:45 Blood Pressure 145/81 07/03/17 06:02 O2 Sat by Pulse Oximetry (%) 94 L 07/02/17 21:00 Constitutional: Yes: Well Nourished, No Distress, Calm Cardiovascular: Yes: Pulse Irregular, S1, S2. No: Gallop, Murmur Respiratory: Yes: Regular, CTA Bilaterally (decr diffusely). No: Accessory Muscle Use, Rales, Wheezes Extremities: No: Cold Edema: No Neurological: Yes: Alert. No: Seizure Psychiatric: No: Agitated Labs: CBC, BMP 07/03/17 05:27 07/03/17 05:27 - ....Imaging EKG: Other (tele: AF 120s-130s) Assessment/Plan echo 06/2017: nl lv/rv, mild tr, mr, rvsp 30-40, mild ao root dil ecg: afib with rvr, nl qtc, no ischemic changes cxr: no chf/infiltrates, +rul mass c/w malignancy a/p: 87 m no known pmhx found at home on floor. new afib with rvr: -unable to take po meds due to aspiration risk -converted to sinus on own, now back in afib, rapid HRs -? tachy being driven by etoh withdrawal -cont diltiazem gtt--titrate as needed -start propranolol (40 tid to start) -has indication for ac but he is currently not a safe candidate for ac given his etoh abuse/fall risk as well as lung mass/malignancy -echo unremarkable -tsh wnl possible fall/syncope: -details of event unclear, pt does not recall how he ended up on floor or for how long -likely related to etoh abuse -echo here unremarkable, no signs acs
--- NOTE | 2017-07-03 12:42 | PN ---
Progress Note, [employer] - Note Progress Note: Pt looks much better. Swallow function is improving. Possible aspiration on thin liquids. Mouth very dry, coated, but does not appear to be thrush. Possibly dry from mouth breathing and supplemental o2. REC: trial of dys puree and nectar thick liquid. Give medication in applesauce, followed by a sip of nectar thick liquid. HOB elevated, chin tucked down, give pt time to swallow 2-3 times before next presentation. Monitor tolerance. MBS when AF controlled. Consider adding humidification to o2.
[2017-07-03] MEDS: PROPRANOLOL HCL 40 MG TABLET PO SCH ×2 (14:14→22:13)
--- NOTE | 2017-07-03 19:27 | CON.PSY ---
Psychiatry Consult Chief Complaint: Asked to see this patient to assess his capacity to refuse further treatmemt History of Present Problem: Medical chart reviewed Dx work up reviewed History obtained from patient Patient states that he wants to go home. He is not wavering on his decision to refuse treatment and clearly state, " I don't want any treatment- I want to go home.!" - Current Medications Current Medications: Active Medications Aspirin (Asa -) 300 mg RC DAILY [facility] Last Admin: 07/03/17 09:40 Dose: 300 mg Folic Acid (Folic Acid Injection -) 1 mg SQ DAILY [facility] Last Admin: 07/03/17 09:40 Dose: 1 mg Heparin Sodium (Porcine) (Heparin -) 5,000 unit SQ TID [facility] Last Admin: 07/03/17 15:22 Dose: 5,000 unit Hydralazine HCl (Apresoline Injection -) 10 mg IVPUSH Q6H PRN PRN Reason: HYPERTENSION Diltiazem HCl 125 mg/ Dextrose 125 mls @ 5 mls/hr IVPB TITR KAREN; 5 MG/HR PRN Reason: Protocol Last Admin: 07/03/17 08:39 Dose: 5 mg/hr, 5 mls/hr Dextrose/Sodium Chloride (Dextrose 5%-Normal Saline+40 Meq Kcl -) 40 meq in 1, 000 mls @ 75 mls/hr IV ASDIR KAREN Last Admin: 07/03/17 14:18 Dose: 75 mls/hr Ampicillin Sodium/Sulbactam (Sodium 1.5 gm/ Sodium Chloride) 100 mls @ 200 mls/ hr IVPB Q6H-IV [facility] Lorazepam (Ativan -) 1 mg PO Q4H PRN PRN Reason: WITHDRAWAL(CONT SUBST) Lorazepam (Ativan Injection -) 0.5 mg IVPUSH Q4H PRN PRN Reason: WITHDRAWAL(CONT SUBST) Pantoprazole Sodium (Protonix Iv) 40 mg IVPUSH DAILY [facility] Last Admin: 07/03/17 09:40 Dose: 40 mg Propranolol HCl (Inderal -) 40 mg PO TID [facility] Last Admin: 07/03/17 14:14 Dose: 40 mg Thiamine HCl (Vitamin B1 Injection -) 200 mg IVPB DAILY [facility] Last Admin: 07/03/17 09:40 Dose: 200 mg - Allergies Allergies: Allergies Allergy/AdvReac Type Severity Reaction Status Date / Time No Known Allergies Allergy Verified 06/29/17 12:20 - Current Living Status Usual Living Arrangement: Alone - Current Mental Status Evaluation Appearance: Disheveled Attitude: Cooperative - Affect Affect: Constrictive - Mood Mood: Other (neutral calm) - Speech/Language Expressive: Delayed, Soft Receptive: Age Appropriate Comprehension of Spoken Words - Psychomotor Activity Psychomotor Activity: Slowed - Thought Process Thought Process: Intact - Thought Content Hallucinations: Absent Delusions: Absent - Self Perception Self Perception: No Impairment - Cognition Attention: Alert Orientation: Person, Place Memory, Immediate Recall: Impaired Memory, Remote: Impaired - Concentration Serial Sevens Intact: No Simple Calculations Intact: No - Abstraction Proverb Interpretation: Impaired Judgement: Minimally Impaired - Impulse Control Impulse Control: Minimally Impaired - Suicidal Ideation Suicidal Ideation: No - Homicidal Ideation Homicidal Ideation: No Assessment/Plan Patient spoke and communicated in French He related the consequences of no treatment vs. treatment He states if I don't get treatment, I can !" Patient understands that he has a choice. Imp: Patient has the capacity to refuse treatment at this time
[2017-07-03] MEDS: AMPICILLIN NA/SULBACTAM NA 1.5 GM in SODIUM CHLORIDE 100 ML IVPB SCH (22:13)
[2017-07-04] MEDS: DILTIAZEM INJECTION 125 MG in DEXTROSE 5%-WATER - 100 ML IVPB SCH ×2 (01:03→08:21)
[2017-07-04] MEDS: AMPICILLIN NA/SULBACTAM NA 1.5 GM in SODIUM CHLORIDE 100 ML IVPB SCH ×4 (03:02→21:12)
[2017-07-04 06:06] LABS: HEMATOCRIT 30.9 % (37.5-51.0)
[2017-07-04] MEDS: HEPARIN NA (PORCINE) 5,000 UNITS/ML 1ML VIAL SQ SCH ×3 (06:38→21:13)
[2017-07-04] MEDS: PROPRANOLOL HCL 40 MG TABLET PO SCH ×3 (06:38→21:13)
[2017-07-04 07:30] LABS: BASOPHIL 0.6 % (0-2.0); EOSINOPHIL 1.8 % (0-4.5); MCH 26.9 pg (25.7-33.7); MCHC 33.1 g/dl (32.0-35.9); MEAN CELL VOLUME 81.3 fl (80-96); MEAN PLT VOLUME 8.2 fl (7.5-11.1); PLATELET COUNT 218 K/MM3 (134-434); RDW 14.5 % (11.9-15.9); WHITE BLOOD COUNT 5.6 K/mm3 (4.0-10.0)
[2017-07-04 08:09] LABS: ALBUMIN 1.9 g/dl (3.4-5.0); ANION GAP 7 (8-16); CALCIUM 7.2 mg/dL (8.5-10.1); CO2 24 mmol/L (21-32); CREATININE 0.5 mg/dL (0.7-1.3); GLUCOSE,RANDOM 235 mg/dL (74-106); SGOT/AST 13 U/L (15-37); SGPT/ALT 12 U/L (12-78)
[2017-07-04 08:11] LABS: ALK PHOS 53 U/L (45-117); TOT PROT 4.7 g/dl (6.4-8.2)
--- NOTE | 2017-07-04 08:36 | PN ---
Physical Exam: SUBJECTIVE: Patient seen and examined. Slept well last night. Tolerated crushed PO meds in apple sauce. States he is asymptomatic. Discussed options for hospice and patient adamantly stated that he did not want to go to a facility, and wants to go home. Will readress. OBJECTIVE: Vital Signs Period Temp Pulse Resp BP Sys/Cosby Pulse Ox Last 24 Hr 97.9 F-98.8 F 82-113 18-20 98-156/60-94 95-97 GEN: Improved mental status, awake, alert, oriented to person but not to place and year, oriented to birthday, able to have conversation, expresses wishes HEENT: PERRLA, improved volume status, mouth still dry w/ sputum + blood CV: S1, S2, irregularly irregular rhythm LUNG: Unable to fully assess due to poor effort, grossly clear anteriorly ABD: Soft, uncomfortable to deep palpation MSK: No edema, no erythema NEURO: Face is symmetric, PERRLA, MSK 4/5 throughout, sensation intact throughout Laboratory Last Values WBC 5.6 K/mm3 (4.0-10.0) 07/04/17 05:10 RBC 3.77 M/mm3 (4.00-5.60) L 07/04/17 05:10 Hgb 10.1 GM/dL (11.7-16.9) L D 07/04/17 05:10 Hct 30.7 % (35.4-49) L 07/04/17 05:10 MCV 81.3 fl (80-96) 07/04/17 05:10 MCH 26.9 pg (25.7-33.7) 07/04/17 05:10 MCHC 33.1 g/dl (32.0-35.9) 07/04/17 05:10 RDW 14.5 % (11.9-15.9) 07/04/17 05:10 Plt Count 218 K/MM3 (134-434) 07/04/17 05:10 MPV 8.2 fl (7.5-11.1) 07/04/17 05:10 Neutrophils % 70.0 % (42.8-82.8) 07/04/17 05:10 Lymphocytes % 16.1 % (8-40) 07/04/17 05:10 Monocytes % 11.5 % (3.8-10.2) H 07/04/17 05:10 Eosinophils % 1.8 % (0-4.5) 07/04/17 05:10 Basophils % 0.6 % (0-2.0) 07/04/17 05:10 Puncture Site Right radial 06/29/17 17:25 ABG pH 7.41 (7.35-7.45) 06/29/17 17:25 ABG pCO2 at Pt Temp 32.7 mmHg (35-45) L 06/29/17 17:25 ABG pO2 at Pt Temp 98.2 mmHg (68-100) 06/29/17 17:25 ABG HCO3 20.4 meq/L (22-26) L 06/29/17 17:25 ABG O2 Sat (Measured) 97.9 % (90-98.9) 06/29/17 17:25 ABG O2 Content 15.1 % vol (15-22) 06/29/17 17:25 ABG Base Excess -3.0 meq/l (-2-2) L 06/29/17 17:25 Esdras Test Positive 06/29/17 17:25 O2 Delivery Device Nasal 06/29/17 17:25 Oxygen Flow Rate 2 06/29/17 17:25 PEEP 0.0 cmH2O 06/29/17 17:25 Sodium 141 mmol/L (136-145) 07/04/17 05:10 Potassium 5.1 mmol/L (3.5-5.1) D 07/04/17 05:10 Chloride 110 mmol/L (98-107) H 07/04/17 05:10 Carbon Dioxide 24 mmol/L (21-32) 07/04/17 05:10 Anion Gap 7 (8-16) L 07/04/17 05:10 BUN 10 mg/dL (7-18) D 07/04/17 05:10 Creatinine 0.5 mg/dL (0.7-1.3) L 07/04/17 05:10 Creat Clearance w eGFR > 60 (>60) 07/04/17 05:10 POC Glucometer 143 UNITS (80-120) 07/04/17 05:48 Random Glucose 235 mg/dL (74-106) H D 07/04/17 05:10 Hemoglobin A1c % 5.7 % (4.8-6.0) D 06/30/17 05:19 Lactic Acid 1.9 mmol/L (0.4-2.0) 06/29/17 12:33 Calcium 7.2 mg/dL (8.5-10.1) L 07/04/17 05:10 Phosphorus 2.4 mg/dL (2.5-4.9) L 06/30/17 05:19 Magnesium 2.2 mg/dL (1.8-2.4) 07/03/17 05:27 Total Bilirubin 1.0 mg/dL (0.2-1.0) 07/04/17 05:10 AST 13 U/L (15-37) L D 07/04/17 05:10 ALT 12 U/L (12-78) D 07/04/17 05:10 Alkaline Phosphatase 53 U/L (45-117) 07/04/17 05:10 Creatine Kinase 470 IU/L (39-308) H 06/30/17 05:19 Creatine Kinase Index 1.6 % (0.0-5.0) 06/30/17 05:19 CK-MB (CK-2) 7.754 ng/mL (0.5-3.6) H 06/30/17 05:19 Troponin I 0.03 ng/ml (0.00-0.05) D 06/29/17 19:45 Total Protein 4.7 g/dl (6.4-8.2) L 07/04/17 05:10 Albumin 1.9 g/dl (3.4-5.0) L 07/04/17 05:10 Vitamin B12 1618 pg/ml (180-914) H 06/30/17 05:19 Folate 1082 ng/mL (>498) 06/30/17 05:19 Folate Hemolysate 334.2 ng/mL (Not Estab.) 06/30/17 05:19 TSH 1.87 uIU/ml (0.358-3.74) D 07/01/17 06:00 Urine Color Yellow 06/29/17 17:52 Urine Appearance Slcloudy 06/29/17 17:52 Urine pH 5.0 (5.0-8.0) 06/29/17 17:52 Ur Specific Mcdowell 1.023 (1.001-1.035) 06/29/17 17:52 Urine Protein Negative (NEGATIVE) 06/29/17 17:52 Urine Glucose (UA) 2+ (NEGATIVE) H 06/29/17 17:52 Urine Ketones 2+ (NEGATIVE) H 06/29/17 17:52 Urine Blood 2+ (NEGATIVE) H 06/29/17 17:52 Urine Nitrite Negative (NEGATIVE) 06/29/17 17:52 Urine Bilirubin Negative (NEGATIVE) 06/29/17 17:52 Urine Urobilinogen Negative mg/dL (0.2-1.0) 11 17:52 Ur Leukocyte Esterase Negative (NEGATIVE) 06/29/17 17:52 Urine RBC 67 06/29/17 17:52 Urine WBC < 1 06/29/17 17:52 Urine Mucus Rare 06/29/17 17:52 Opiates Screen Negative ng/ml (JSIJHQ=714) 06/29/17 17:52 Methadone Screen Negative ng/ml (FJIZVB=956) 06/29/17 17:52 Barbiturate Screen Negative ng/ml (CAALUK=564) 06/29/17 17:52 Phencyclidine Screen Negative ng/ml (CUTOFF=25) 06/29/17 17:52 Ur Amphetamines Screen Negative ng/ml (RIHGBC=302) 06/29/17 17:52 MDMA (Ecstasy) Screen Negative ng/ml (QIEMKX=787) 06/29/17 17:52 Benzodiazepines Screen Negative ng/ml (VPVTUA=176) 06/29/17 17:52 Cocaine Screen Negative ng/ml (YHQFFD=561) 06/29/17 17:52 U Marijuana (THC) Screen Negative ng/ml (CUTOFF=50) 06/29/17 17:52 Alcohol, Quantitative < 5.0 mg/dl (0-5) 06/30/17 05:19 Active Medications Generic Name Dose Route Start Last Admin Trade Name Freq PRN Reason Stop Dose Admin Aspirin 300 mg 07/01/17 06:02 07/03/17 09:40 Asa - RC 300 mg DAILY KAREN Administration Folic Acid 1 mg 06/30/17 13:30 07/03/17 09:40 Folic Acid Injection - SQ 1 mg DAILY KAREN Administration Heparin Sodium (Porcine) 5,000 unit 06/29/17 22:00 07/04/17 06:38 Heparin - SQ 5,000 unit TID KAREN Administration Hydralazine HCl 10 mg 07/02/17 16:46 Apresoline Injection - IVPUSH Q6H PRN HYPERTENSION Diltiazem HCl 125 mg/ Dextrose 125 mls @ 5 mls/hr 07/03/17 07:30 07/04/17 08: 21 IVPB Not Given TITR KAREN Protocol 5 MG/HR Dextrose/Sodium Chloride 40 meq in 1,000 mls @ 75 mls/hr 07/03/17 11:30 07/03 14:18 Dextrose 5%-Normal Saline+40 Meq Kcl - IV 75 mls/hr ASDIR KAREN Administration Ampicillin Sodium/Sulbactam 100 mls @ 200 mls/hr 07/03/17 16:49 07/04/17 03: 02 Sodium 1.5 gm/ Sodium Chloride IVPB 200 mls/hr Q6H-IV KAREN Administration Lorazepam 1 mg 06/29/17 17:13 Ativan - PO Q4H PRN WITHDRAWAL(CONT SUBST) Lorazepam 0.5 mg 06/30/17 16:37 Ativan Injection - IVPUSH Q4H PRN WITHDRAWAL(CONT SUBST) Pantoprazole Sodium 40 mg 06/30/17 10:00 07/03/17 09:40 Protonix Iv IVPUSH 40 mg DAILY KAREN Administration Propranolol HCl 40 mg 07/03/17 14:00 07/04/17 06:38 Inderal - PO 40 mg TID KAREN Administration Thiamine HCl 200 mg 06/30/17 10:00 07/03/17 09:40 Vitamin B1 Injection - IVPB 200 mg DAILY KAREN Administration ASSESSMENT/PLAN: Mr. Davis is an 87yo M with no significant PMHx, found on the floor with empty alcohol bottles around him, altered, and in Afib with RVR. # Altered Mental Status - conversational but AAOx1, likely underlying dementia, unlikely focal neuro, Utox neg, ABG wnl - Psych deemed competency, pt refuses hospice, rehab, would like to go home. Will get psych to see again, see if pt understands risks/benefits of going home w/o assistance - Tolerating dysphagia diet w/ nectar thick liquids, S&S on board, no need MBS # New Onset Afib w/ RVR - re-converted yesterday, likely 2/2 dehydration + acute EtOH abuse, Echo wnl, TSH wnl - HR well controlled, d/c Cardizem drip, continue PO Propranolol 40mg TID - Hold off on AC due to fall risk + lung mass, cardio on board # RUL Lung Mass - Interval increase in size, concern for malignancy, pt doesn't want aggressive measures, wants to be "left alone", monitor for mild hemoptysis # Low Grade Fever - resolved, likely 2/2 recurrent aspiration, on empiric IV Unasyn 1.5g Q6H Day 3, upon d/c convert to Augmentin PO for 2 more days # EtOH Abuse - Ativan IV to 0.5 Q4PRN, thiamine IV, folate SQ, transition to PO when able # EtOH # Dehydration - along w/ NPO status, change D5NS w/ KCl 20 @ 75cc/hr --> D5NS @ 75cc/hr # Rhabdomyolysis - improved, 2/2 prolonged immobility, continue IVF # FEN - IVF, elec wnl, NPO for now, failed S&S # PPx - HSQ TID, Protonix 40mg IVQD, PT ordered # Code Status - Discussed w/ pt, wishes DNR/DNI, will get form signed today since pt is competent # Dispo - Pt has ultimately refused hospice and [facility]. He would like to go home. Failed PT. Psych will see tonight to assess if patient understands this decision to go home w/o services. d/w Dr Ofelia Valle MD - PGY1 Internal Medicine Visit type - Emergency Visit Emergency Visit: No - New Patient This patient is new to me today: No - Critical Care Critical Care patient: No - Discharge Referral Referred to [facility] Med [facility].C[facility] No
[2017-07-04] MEDS: DEXTROSE 5%-NORMAL SALINE 1,000 ML IV SCH (09:17)
[2017-07-04] MEDS: PANTOPRAZOLE SODIUM 40 MG VIAL IVPUSH SCH (09:24)
[2017-07-04] MEDS: THIAMINE HCL 200 MG/2 ML VIAL IVPB SCH (09:24)
--- NOTE | 2017-07-04 10:17 | PN ---
Progress Note (short form) - Note Progress Note: Chief Complaint: afib History of Present Illness: denies cp, palpitations, sob, dizzy. diltiazem drip weaned overnight. started on po inderal yesterday. Rate control improved. Working with PT this morning. Current Medications Aspirin (Asa -) 300 mg RC DAILY [facility] Last Admin: 07/03/17 09:40 Dose: 300 mg Folic Acid (Folic Acid Injection -) 1 mg SQ DAILY [facility] Last Admin: 07/03/17 09:40 Dose: 1 mg Heparin Sodium (Porcine) (Heparin -) 5,000 unit SQ TID [facility] Last Admin: 07/04/17 06:38 Dose: 5,000 unit Hydralazine HCl (Apresoline Injection -) 10 mg IVPUSH Q6H PRN PRN Reason: HYPERTENSION Diltiazem HCl 125 mg/ Dextrose 125 mls @ 5 mls/hr IVPB TITR KAREN; 5 MG/HR PRN Reason: Protocol Last Admin: 07/04/17 08:21 Dose: Not Given Ampicillin Sodium/Sulbactam (Sodium 1.5 gm/ Sodium Chloride) 100 mls @ 200 mls/ hr IVPB Q6H-IV KAREN Last Admin: 07/04/17 09:16 Dose: 200 mls/hr Dextrose/Sodium Chloride (D5-Ns -) 1,000 mls @ 75 mls/hr IV ASDIR [facility] Last Admin: 07/04/17 09:17 Dose: 75 mls/hr Lorazepam (Ativan -) 1 mg PO Q4H PRN PRN Reason: WITHDRAWAL(CONT SUBST) Lorazepam (Ativan Injection -) 0.5 mg IVPUSH Q4H PRN PRN Reason: WITHDRAWAL(CONT SUBST) Pantoprazole Sodium (Protonix Iv) 40 mg IVPUSH DAILY [facility] Last Admin: 07/04/17 09:24 Dose: 40 mg Propranolol HCl (Inderal -) 40 mg PO TID [facility] Last Admin: 07/04/17 06:38 Dose: 40 mg Thiamine HCl (Vitamin B1 Injection -) 200 mg IVPB DAILY [facility] Last Admin: 07/04/17 09:24 Dose: 200 mg - Objective Vital Signs: Vital Signs - 24 hr 07/03/17 07/03/17 07/03/17 12:00 18:19 18:30 Temperature 98.0 F Pulse Rate 113 H 109 H 84 Respiratory 19 Rate Blood Pressure 156/94 135/83 111/66 O2 Sat by Pulse Oximetry (%) 07/03/17 07/03/17 07/04/17 21:00 21:50 01:03 Temperature 98.8 F Pulse Rate 95 H 92 H Respiratory 20 Rate Blood Pressure 137/71 100/66 O2 Sat by Pulse 95 Oximetry (%) 07/04/17 07/04/17 07/04/17 02:00 06:00 07:48 Temperature 98.0 F 98.8 F 97.9 F Pulse Rate 92 H 82 84 Respiratory 20 18 20 Rate Blood Pressure 100/67 98/60 107/64 O2 Sat by Pulse Oximetry (%) 07/04/17 08:00 Temperature Pulse Rate Respiratory 20 Rate Blood Pressure O2 Sat by Pulse 92 L Oximetry (%) Intake & Output 07/02/17 07/03/17 07/04/17 07/05/17 07:59 07:59 07:59 07:59 Intake Total 600 1125 2400 Balance 600 1125 2400 Constitutional: Yes: Well Nourished, No Distress, Calm Cardiovascular: Yes: Pulse Irregular, S1, S2. No: Gallop, Murmur Respiratory: Yes: Regular, (decr diffusely/poor air movment/poor effort). No: Accessory Muscle Use, Rales, Wheezes Extremities: No: Cold Edema: No Neurological: Yes: Alert. No: Seizure Psychiatric: No: Agitated Labs: CBC, BMP 07/04/17 05:10 07/04/17 05:10 Laboratory Tests 07/03/17 07/04/17 05:27 05:10 Magnesium 2.2 Total Bilirubin 1.0 AST 13 L D ALT 12 D Alkaline Phosphatase 53 Albumin 1.9 L - ....Imaging EKG: Other (tele: AF 120s-130s yesterday --> trended down last night, since then 80's-90's) Assessment/Plan echo 06/2017: nl lv/rv, mild tr, mr, rvsp 30-40, mild ao root dil ecg: afib with rvr, nl qtc, no ischemic changes cxr: no chf/infiltrates, +rul mass c/w malignancy a/p: 87 m no known pmhx found at home on floor. new afib with rvr: -unable to take po meds due to aspiration risk -converted to sinus on own, now back in afib, rapid HRs -? tachy being driven by etoh withdrawal -cont diltiazem gtt--titrate as needed -started propranolol 07/03 (40 tid to start) -has indication for ac but he is currently not a safe candidate for ac given his etoh abuse/fall risk as well as lung mass/malignancy -echo unremarkable -tsh wnl - 07/04: started on po inderal yesterday with improved HR contorl. Dilt drip weaned to 5, will stop now. Observe for need to titrate up inderal today off of dilt drip. possible fall/syncope: -details of event unclear, pt does not recall how he ended up on floor or for how long -likely related to etoh abuse -echo here unremarkable, no signs acs - appears weak, pt following. - O2 sat low 90's on NC --> con't to monitor.
--- NOTE | 2017-07-04 10:30 | PN ---
Progress Note, Physician History of Present Illness: PULMONARY ALERT,FEELING BETTER,-RESP DISTRESS - Current Medication List Current Medications: Active Medications Aspirin (Asa -) 300 mg RC DAILY [facility] Last Admin: 07/03/17 09:40 Dose: 300 mg Folic Acid (Folic Acid Injection -) 1 mg SQ DAILY [facility] Last Admin: 07/03/17 09:40 Dose: 1 mg Heparin Sodium (Porcine) (Heparin -) 5,000 unit SQ TID [facility] Last Admin: 07/04/17 06:38 Dose: 5,000 unit Hydralazine HCl (Apresoline Injection -) 10 mg IVPUSH Q6H PRN PRN Reason: HYPERTENSION Ampicillin Sodium/Sulbactam (Sodium 1.5 gm/ Sodium Chloride) 100 mls @ 200 mls/ hr IVPB Q6H-IV [facility] Last Admin: 07/04/17 09:16 Dose: 200 mls/hr Dextrose/Sodium Chloride (D5-Ns -) 1,000 mls @ 75 mls/hr IV ASDIR [facility] Last Admin: 07/04/17 09:17 Dose: 75 mls/hr Lorazepam (Ativan -) 1 mg PO Q4H PRN PRN Reason: WITHDRAWAL(CONT SUBST) Lorazepam (Ativan Injection -) 0.5 mg IVPUSH Q4H PRN PRN Reason: WITHDRAWAL(CONT SUBST) Pantoprazole Sodium (Protonix Iv) 40 mg IVPUSH DAILY [facility] Last Admin: 07/04/17 09:24 Dose: 40 mg Propranolol HCl (Inderal -) 40 mg PO TID [facility] Last Admin: 07/04/17 06:38 Dose: 40 mg Thiamine HCl (Vitamin B1 Injection -) 200 mg IVPB DAILY [facility] Last Admin: 07/04/17 09:24 Dose: 200 mg - Objective Vital Signs: Vital Signs Temperature 97.9 F 07/04/17 07:48 Pulse Rate 84 07/04/17 07:48 Respiratory Rate 20 07/04/17 08:00 Blood Pressure 107/64 07/04/17 07:48 O2 Sat by Pulse Oximetry (%) 92 L 07/04/17 08:00 Constitutional: Yes: Calm, Thin Eyes: Yes: WNL HENT: Yes: WNL Neck: Yes: WNL Cardiovascular: Yes: Regular Rate and Rhythm, S1, S2 Respiratory: Yes: Diminished Gastrointestinal: Yes: Normal Bowel Sounds, Soft Extremities: Yes: WNL Edema: No Labs: CBC, BMP 07/04/17 05:10 07/04/17 05:10 Assessment/Plan A/P New Onset Atrial Fibrillation with RVR now in sinus Lung Mass suspicious for malignancy Pulmonary HTN Alcohol Dependence - consider conservative treatment in view of his advanced age and poor performance status, pt likely would not be a candidate for treatment - anticoagulation per cardiology - DVT prophylaxis Problem List - Problems (1) Atrial fibrillation with rapid ventricular response Code(s): I48.91 - UNSPECIFIED ATRIAL FIBRILLATION (2) Lung mass Code(s): R91.8 - OTHER NONSPECIFIC ABNORMAL FINDING OF LUNG FIELD (3) Alcohol dependence Code(s): F10.20 - ALCOHOL DEPENDENCE, UNCOMPLICATED (4) Pulmonary hypertension Code(s): I27.20 - PULMONARY HYPERTENSION, UNSPECIFIED
[2017-07-04] MEDS: ASPIRIN 300 MG SUPP.RECT RC SCH (10:57)
--- NOTE | 2017-07-04 12:11 | PN ---
Progress Note, C[employer]ARETTE [employer]KER - Note Progress Note: Pt continues to look much better. Swallow function is improving. Delayed, fair VOM of laryngeal elevation.\ Possible aspiration on thin liquids.Tongue still coated,less dry. REC: trial of dys puree and nectar thick liquid. Give medication in applesauce, followed by a sip of nectar thick liquid. HOB elevated, chin tucked down, give pt time to swallow 2-3 times before next presentation. Monitor tolerance. Consider adding humidification to o2 to reduce oral dryness.
[2017-07-04] MEDS: FOLIC ACID 5 MG/1 ML SQ SCH (13:00)
--- NOTE | 2017-07-04 13:12 | PN ---
Teaching Attending Note Name of Resident: Mirna Valle ATTENDING PHYSICIAN STATEMENT I saw and evaluated the patient. I reviewed the resident's note and discussed the case with the resident. I agree with the resident's findings and plan as documented. SUBJECTIVE:c/o generalized fatigue. denies CP, SOB, fever, chills, N/V/C/D OBJECTIVE: Last Vital Signs Temp Pulse Resp BP Pulse Ox 97.9 F 71 20 107/64 97 07/04/17 07:48 07/04/17 10:26 07/04/17 08:00 07/04/17 07:48 07/04/17 10:26 General NAD A&Ox2 (self and location) HEENT b/L eye crusting. conjunctival erythema and everted CV S1 S2 + Lungs CTA B/L no wheezing/rales/rhonchi Abdomen soft NT/ND ASSESSMENT AND PLAN: 87yo M with PMH continuous ETOH dependence presented to the ER with AMS 1. Acute Metabolic toxic encephalopathy- at baseline per resident. likely has some underlying dementia with ETOH intoxication. evaluated by psych and determined to be competent to make decisions. 2. Dysphagia-likely poor mental status. appears improved. possible MBS today. advanced to puree diet. will tolerate how tolerated 3. Aspiration PNA- prophylactically started on Unasyn. has been afebrile and no leukocytosis. will complete short course of abx. on unasyn day3. aspiration precautions. elevated head of bed 4. bacterial conjunctivitis- start cipro ggt 1-2ggt q2H x2days then q4H x5days 5. Afib with RVR- rate now controlled. on cardizem ggt because was not tolerating po. will convert to po at this time. high [id number]. not a good candidate for anticoagulation due to fall risk and continued alcohol use. will switch to asa po. 6. RUL mass- with hemoptysis. refusing workup at this time. states he does not want surgery on chemotherapy 7. Rhabdomyolysis- resolved 8. Hypokalemia- resolved 9. Continuous polysubstance abuse with acute intoxication- was never placed on withdrawal taper due to unable to tolerate po. ativan prn. has not required any doses. does not want inpatient rehab. thiamine/folate/mvi 10. Anemia- no signs of acute blood loss. check iron studies. no indication for transfusion 11. DVT ppx- hep sq 12. PT assessment. will likely require [facility]. pt agreeable to short stay. pt has no nearby family members. poor overall prognosis. palliative care consulted
--- NOTE | 2017-07-04 15:49 | EKG ---
Test Reason : Blood Pressure : / mmHG Vent. Rate : 145 BPM Atrial Rate : 153 BPM P-R Int : 000 ms QRS Dur : 082 ms QT Int : 314 ms P-R-T Axes : 000 -25 071 degrees QTc Int : 487 ms POOR DATA QUALITY, INTERPRETATION MAY BE ADVERSELY AFFECTED ATRIAL FIBRILLATION WITH RAPID VENTRICULAR RESPONSE NONSPECIFIC ST AND T WAVE ABNORMALITY ABNORMAL ECG WHEN COMPARED WITH ECG OF 02-JUN-2016 07:49, ATRIAL FIBRILLATION HAS REPLACED SINUS RHYTHM VENT. RATE HAS INCREASED BY [address] NOW DEPRESSED IN ANTERIOR LEADS NONSPECIFIC T WAVE ABNORMALITY NOW EVIDENT IN INFERIOR LEADS T WAVE INVERSION NO LONGER EVIDENT IN LATERAL LEADS FOLLOW UP EKG RECOMMENDED Confirmed by SLICK SNOW MD ([id number]) on 07/04/2017 3:49:12 PM Referred By: Confirmed By:SLICK SNOW MD
[2017-07-04] MEDS: CIPROFLOXACIN HCL 0.3% OPHTH 2.5ML BOTTLE OU SCH ×5 (16:43→23:30)
--- NOTE | 2017-07-04 18:15 | CON.PSY ---
Psychiatry Consult Chief Complaint: Patient wants to go home History of Present Problem: Patient is more awake and alert today, eyes open responding to questions asked and expressing the same wish as yesterday, " I want to go home!" He spoke softly but verbalized the potential consequences of going home with his failing health and decline Patient states that he can fall and alone at home; that he may miss taking his medications and that he is prepared to live and to under those circumstances. Patient can refuse other alternative living arrangement and he has the capacity to make his own decisions. He understands the risks involved as outlined. - Current Medications Current Medications: Active Medications Aspirin (Ecotrin -) 81 mg PO DAILY [facility] Ciprofloxacin (Ciloxan 0.3% Eye Drops -) 2 drop OU Q2H [facility] Stop: 07/06/17 13:14 Last Admin: 07/04/17 17:00 Dose: 2 drop Folic Acid (Folic Acid -) 1 mg PO DAILY [facility] Heparin Sodium (Porcine) (Heparin -) 5,000 unit SQ TID [facility] Last Admin: 07/04/17 14:26 Dose: 5,000 unit Ampicillin Sodium/Sulbactam (Sodium 1.5 gm/ Sodium Chloride) 100 mls @ 200 mls/ hr IVPB Q6H-IV [facility] Last Admin: 07/04/17 14:47 Dose: 200 mls/hr Dextrose/Sodium Chloride (D5-Ns -) 1,000 mls @ 75 mls/hr IV ASDIR [facility] Last Admin: 07/04/17 09:17 Dose: 75 mls/hr Lorazepam (Ativan -) 1 mg PO Q4H PRN PRN Reason: WITHDRAWAL(CONT SUBST) Lorazepam (Ativan Injection -) 0.5 mg IVPUSH Q4H PRN PRN Reason: WITHDRAWAL(CONT SUBST) Multivitamins/Minerals/Vitamin C (Tab-A-Vit -) 1 tab PO DAILY [facility] Propranolol HCl (Inderal -) 40 mg PO TID [facility] Last Admin: 07/04/17 14:26 Dose: 40 mg Thiamine HCl (Vitamin B1 -) 100 mg PO DAILY [facility] - Allergies Allergies: Allergies Allergy/AdvReac Type Severity Reaction Status Date / Time No Known Allergies Allergy Verified 06/29/17 12:20
[2017-07-05] MEDS: CIPROFLOXACIN HCL 0.3% OPHTH 2.5ML BOTTLE OU SCH ×8 (01:14→15:43)
[2017-07-05] MEDS: AMPICILLIN NA/SULBACTAM NA 1.5 GM in SODIUM CHLORIDE 100 ML IVPB SCH ×3 (03:21→15:43)
[2017-07-05] MEDS: PROPRANOLOL HCL 40 MG TABLET PO SCH ×2 (05:41→14:50)
[2017-07-05] MEDS: HEPARIN NA (PORCINE) 5,000 UNITS/ML 1ML VIAL SQ SCH ×2 (05:41→14:50)
[2017-07-05 07:31] LABS: MCH 26.8 pg (25.7-33.7); MCHC 32.6 g/dl (32.0-35.9); MEAN CELL VOLUME 82.3 fl (80-96); MEAN PLT VOLUME 8.3 fl (7.5-11.1); PLATELET COUNT 223 K/MM3 (134-434); RDW 14.5 % (11.9-15.9); WHITE BLOOD COUNT 6.4 K/mm3 (4.0-10.0)
[2017-07-05] MEDS ORDERED: PT OWN MED DRAWER 7, Y5N ONE (08:36)
[2017-07-05] MEDS: DEXTROSE 5%-NORMAL SALINE 1,000 ML IV SCH (09:19)
[2017-07-05] MEDS ORDERED: MULTIVITAMINS (DAILY MVI) TABLET (FP) PO SCH (10:00)
[2017-07-05] MEDS ORDERED: FOLIC ACID 1 MG TABLET (FP) PO SCH (10:00)
[2017-07-05] MEDS ORDERED: THIAMINE HCL 100 MG TABLET (FP) PO SCH (10:00)
[2017-07-05] MEDS ORDERED: ASPIRIN COATED 81 MG TABLET.EC PO SCH (10:00)
--- NOTE | 2017-07-05 11:05 | PN ---
Progress Note, DISPLAY MAKER - Note Progress Note: Selected Entries 07/04/17 07/04/17 07/04/17 02:00 06:00 07:48 Lunch Supper Temperature 98.0 F 98.8 F 97.9 F 07/04/17 07/04/17 07/04/17 14:00 17:00 19:35 Lunch 25% Supper 50% Temperature 98.6 F 98.1 F 07/04/17 07/05/17 07/05/17 21:22 01:00 05:00 Lunch Supper Temperature 98.7 F 97.6 F 98.3 F 07/05/17 08:00 Lunch Supper Temperature 98.0 F Laboratory Tests 07/04/17 07/05/17 05:10 05:20 WBC 5.6 6.4 dys puree and nectar thick liquid. Ensure compact/Magic cup ordered. Medication in applesauce, followed by a sip of nectar thick liquid. HOB elevated, chin tucked down, give pt time to swallow 2-3 times before next presentation. Monitor tolerance. Consider adding humidification to o2 to reduce oral dryness.
--- NOTE | 2017-07-05 11:14 | PN ---
Teaching Attending Note Name of Resident: Mirna Valle ATTENDING PHYSICIAN STATEMENT I saw and evaluated the patient. I reviewed the resident's note and discussed the case with the resident. I agree with the resident's findings and plan as documented. SUBJECTIVE:asymptomatic. requesting to go home. denies CP, SOB, fever, chills, palpitations, N/V/C/D OBJECTIVE: Last Vital Signs Temp Pulse Resp BP Pulse Ox 98.0 F 100 H 14 115/70 98 07/05/17 08:00 07/05/17 08:00 07/05/17 08:00 07/05/17 08:00 07/04/17 21:00 General NAD A&Ox2 (self and location) HEENT b/L eye crusting. conjunctival erythema and everted CV S1 S2 + ASSESSMENT AND PLAN: 87yo M with PMH continuous ETOH dependence presented to the ER with AMS 1. Acute Metabolic toxic encephalopathy- at baseline per resident. likely has some underlying dementia with ETOH intoxication. evaluated by psych and determined to be competent to make decisions. 2. Dysphagia-likely poor mental status. tolerating puree diet. 3. Aspiration PNA- prophylactically started on Unasyn. has been afebrile and no leukocytosis. will complete short course of abx. on unasyn day4. will switch to augmentin to complete 5 day course. aspiration precautions. elevated head of bed 4. bacterial conjunctivitis- start cipro ggt 1-2ggt q2H x2days then q4H x5days 5. Afib with RVR- rate improved. off cardizem ggt for almost 24H. BP has improved. on propanolol 40mg TID. if HR Increases >100 and/or becomes symptomatic will increase propanolol dose.high [id number]. not a good candidate for anticoagulation due to fall risk and continued alcohol use. will switch to asa po. 6. RUL mass- with hemoptysis. refusing workup at this time. states he does not want surgery on chemotherapy 7. Rhabdomyolysis- resolved 8. Hypokalemia- resolved 9. Continuous polysubstance abuse with acute intoxication- was never placed on withdrawal taper due to unable to tolerate po. ativan prn. has not required any doses. does not want inpatient rehab. thiamine/folate/mvi 10. Anemia- no signs of acute blood loss. no indication for transfusion 11. DVT ppx- hep sq 12.only able to ambulate 5 feet with PT. evaluated by psych again last night and determined competent to make decisions. currently pt understands he is weak and unable to walk well, however he states he has significant social support from the community to help him. explained that it is recommended to go to [facility],. which he verbalized understanding of my recommendation but declined. will d/c home
--- NOTE | 2017-07-05 11:29 | DS ---
Physical Exam: SUBJECTIVE: Patient seen and examined. Doing well this AM. No complaints. No CP , no SOB, no fevers, no chills OBJECTIVE: Vital Signs Period Temp Pulse Resp BP Sys/Cosby Pulse Ox Last 24 Hr 97.6 F-98.7 F 95-106 14-20 115-132/67-88 97-98 PHYSICAL EXAM GEN: Improved mental status, awake, alert, oriented to person HEENT: PERRLA, EOMi, improved volume status CV: S1, S2, irregularly irregular rhythm LUNG: Unable to fully assess due to poor effort, grossly clear anteriorly ABD: Soft, NT, ND, normoactive BS MSK: No edema, no erythema NEURO: Face is symmetric, PERRLA, MSK 4/5 throughout, sensation intact throughout LABS Laboratory Last Values WBC 6.4 K/mm3 (4.0-10.0) 07/05/17 05:20 RBC 3.94 M/mm3 (4.00-5.60) L 07/05/17 05:20 Hgb 10.6 GM/dL (11.7-16.9) L 07/05/17 05:20 Hct 32.4 % (35.4-49) L 07/05/17 05:20 MCV 82.3 fl (80-96) 07/05/17 05:20 MCH 26.8 pg (25.7-33.7) 07/05/17 05:20 MCHC 32.6 g/dl (32.0-35.9) 07/05/17 05:20 RDW 14.5 % (11.9-15.9) 07/05/17 05:20 Plt Count 223 K/MM3 (134-434) 07/05/17 05:20 MPV 8.3 fl (7.5-11.1) 07/05/17 05:20 Neutrophils % 70.0 % (42.8-82.8) 07/04/17 05:10 Lymphocytes % 16.1 % (8-40) 07/04/17 05:10 Monocytes % 11.5 % (3.8-10.2) H 07/04/17 05:10 Eosinophils % 1.8 % (0-4.5) 07/04/17 05:10 Basophils % 0.6 % (0-2.0) 07/04/17 05:10 Puncture Site Right radial 06/29/17 17:25 ABG pH 7.41 (7.35-7.45) 06/29/17 17:25 ABG pCO2 at Pt Temp 32.7 mmHg (35-45) L 06/29/17 17:25 ABG pO2 at Pt Temp 98.2 mmHg (68-100) 06/29/17 17:25 ABG HCO3 20.4 meq/L (22-26) L 06/29/17 17:25 ABG O2 Sat (Measured) 97.9 % (90-98.9) 06/29/17 17:25 ABG O2 Content 15.1 % vol (15-22) 06/29/17 17:25 ABG Base Excess -3.0 meq/l (-2-2) L 06/29/17 17:25 Esdras Test Positive 06/29/17 17:25 O2 Delivery Device Nasal 06/29/17 17:25 Oxygen Flow Rate 2 06/29/17 17:25 PEEP 0.0 cmH2O 06/29/17 17:25 Sodium 141 mmol/L (136-145) 07/04/17 05:10 Potassium 5.1 mmol/L (3.5-5.1) D 07/04/17 05:10 Chloride 110 mmol/L (98-107) H 07/04/17 05:10 Carbon Dioxide 24 mmol/L (21-32) 07/04/17 05:10 Anion Gap 7 (8-16) L 07/04/17 05:10 BUN 10 mg/dL (7-18) D 07/04/17 05:10 Creatinine 0.5 mg/dL (0.7-1.3) L 07/04/17 05:10 Creat Clearance w eGFR > 60 (>60) 07/04/17 05:10 POC Glucometer 118 UNITS (80-120) 07/05/17 05:21 Random Glucose 235 mg/dL (74-106) H D 07/04/17 05:10 Hemoglobin A1c % 5.7 % (4.8-6.0) D 06/30/17 05:19 Lactic Acid 1.9 mmol/L (0.4-2.0) 06/29/17 12:33 Calcium 7.2 mg/dL (8.5-10.1) L 07/04/17 05:10 Phosphorus 2.4 mg/dL (2.5-4.9) L 06/30/17 05:19 Magnesium 2.2 mg/dL (1.8-2.4) 07/03/17 05:27 Total Bilirubin 1.0 mg/dL (0.2-1.0) 07/04/17 05:10 AST 13 U/L (15-37) L D 07/04/17 05:10 ALT 12 U/L (12-78) D 07/04/17 05:10 Alkaline Phosphatase 53 U/L (45-117) 07/04/17 05:10 Creatine Kinase 470 IU/L (39-308) H 06/30/17 05:19 Creatine Kinase Index 1.6 % (0.0-5.0) 06/30/17 05:19 CK-MB (CK-2) 7.754 ng/mL (0.5-3.6) H 06/30/17 05:19 Troponin I 0.03 ng/ml (0.00-0.05) D 06/29/17 19:45 Total Protein 4.7 g/dl (6.4-8.2) L 07/04/17 05:10 Albumin 1.9 g/dl (3.4-5.0) L 07/04/17 05:10 Vitamin B12 1618 pg/ml (180-914) H 06/30/17 05:19 Folate 1082 ng/mL (>498) 06/30/17 05:19 Folate Hemolysate 334.2 ng/mL (Not Estab.) 06/30/17 05:19 TSH 1.87 uIU/ml (0.358-3.74) D 07/01/17 06:00 Urine Color Yellow 06/29/17 17:52 Urine Appearance Slcloudy 06/29/17 17:52 Urine pH 5.0 (5.0-8.0) 06/29/17 17:52 Ur Specific [place] 1.023 (1.001-1.035) 06/29/17 17:52 Urine Protein Negative (NEGATIVE) 06/29/17 17:52 Urine Glucose (UA) 2+ (NEGATIVE) H 06/29/17 17:52 Urine Ketones 2+ (NEGATIVE) H 06/29/17 17:52 Urine Blood 2+ (NEGATIVE) H 06/29/17 17:52 Urine Nitrite Negative (NEGATIVE) 06/29/17 17:52 Urine Bilirubin Negative (NEGATIVE) 06/29/17 17:52 Urine Urobilinogen Negative mg/dL (0.2-1.0) 06/29/17 17:52 Ur Leukocyte Esterase Negative (NEGATIVE) 06/29/17 17:52 Urine RBC 67 06/29/17 17:52 Urine WBC < 1 06/29/17 17:52 Urine Mucus Rare 06/29/17 17:52 Opiates Screen Negative ng/ml (YLGYUV=942) 06/29/17 17:52 Methadone Screen Negative ng/ml (LOPXFJ=864) 06/29/17 17:52 Barbiturate Screen Negative ng/ml (JUZVOF=263) 06/29/17 17:52 Phencyclidine Screen Negative ng/ml (CUTOFF=25) 06/29/17 17:52 Ur Amphetamines Screen Negative ng/ml (VUOVPQ=177) 06/29/17 17:52 MDMA (Ecstasy) Screen Negative ng/ml (ZDKXIV=206) 06/29/17 17:52 Benzodiazepines Screen Negative ng/ml (PUNHCW=119) 06/29/17 17:52 Cocaine Screen Negative ng/ml (YZTFFV=007) 06/29/17 17:52 U Marijuana (THC) Screen Negative ng/ml (CUTOFF=50) 06/29/17 17:52 Alcohol, Quantitative < 5.0 mg/dl (0-5) 06/30/17 05:19 HOSPITAL COURSE: Date of Admission:06/29/17 Date of Discharge: 07/05/17 Briefly, Mr. Davis is an 87yo M with no notable past medical history, who was brought by EMS after being found on the floor with multiple alcohol bottles around him. In the ER he was found to be in rapid Afib with HRs in the 150s, and was initially maintained on a Cardizem drip. He was followed by Cardiology, and later switched to Propranolol 40mg PO TID with improvement of HR to the 90s- 100s. We will increase the dose to 60mg TID upon discharge to better control the HR. He is not a candidate for anticoagulation mainly due to fall risk. He was initially found lethargic, but his mental status later improved, without needing PRN ativan treatments for alcohol withdrawal. The patient also had a cough on presentation, and a chest-XRay was performed which showed possible RLL developing consolidation and a RUL mass. A subsequent CT chest demonstrated a 4.5cm lung mass with multiple satellite lesions. Along with an episode of mild hemoptysis, there was concern for malignancy. The patient was made aware and adamantly refused diagnostic procedures or treatment for the lung mass. The patient was also seen by physical therapy, able to walk minimally. Multiple medical staff members have spoken to the patient and recommended a subacute rehabilitation facility for physical therapy, but the patient adamantly refused. He was given the option of a visiting nurse, which he also refused. He was seen by Psychiatry twice who spoke with the patient and stated he was competent and was capable of making decisions and refusing care at this time. As per Psychiatry's note "he verbalized the potential consequences of going home with his failing health and decline. Patient states that he can fall and alone at home; that he may miss taking his medications and that he is prepared to live and to under those circumstances". The Director of Shot Grinder Operator and DIRECT SALES REPRESENTATIVE of Patient Relations are aware of the case. Social work is trying to get in contact with Adult Protective Services so that they are aware of this patient in the community. The patient lives alone and is functionally limited, a rolling walker was sent to his home. A call was placed to the patient's long-time friend and neighbor Ayah Mckeon ([phone] ; [phone]) who said that she is very willing to support him at home. Minutes to complete discharge: 45 Discharge Summary Reason For Visit: ATRIAL FIBRILLATION Current Active Problems Alcohol dependence (Acute) Alcohol intoxication (Acute) Atrial fibrillation with rapid ventricular response (Acute) Lung mass (Acute) Pulmonary hypertension (Acute) Condition: Improved - Instructions Diet, Activity, Other Instructions: RECOMMENDATIONS - You were found to have an irregular heart beat in the hospital (Atrial fibrillation) - Please avoid alcohol, caffeine, caffeine containing products - For your aspiration pneumonia, please take the Augmentin tablet as prescribed below - Please use a rolling walker when ambulating, you are very weak and should go to sub-acute rehab to increase your strength however you refused at this time. - We recommend a dysphagia puree diet MEDICATION CHANGES - Propranolol 60mg tablet, three times a day - Augmentin 500-125mg tablet, 1 tablet daily for 2 more days - Aspirin 81mg tablet, 1 tablet daily - Ciprofloxacin eye drops, 1 drop in each eye every 2 hours for 1 day and then every 4H for 5 days - Thiamine tablet, 1 tablet daily - Folic Acid tablet, 1 tablet daily NEW FOLLOWUPS: - Dr. Singh (Primary Care Doctor) - in 1 week - Dr. Rojas (Manager Instrumentation) - in 1 week Referrals: Bernardino Singh MD [Primary Care Provider] - 1 Week Scottie Rojas MD [Staff Physician] - 1 Week Disposition: HOME - Home Medications Comprehensive Discharge Medication List: Ambulatory Orders Amoxicillin/Potassium Clav [Augmentin 500-125 Tablet] 1 each PO DAILY #2 tablet 07/05/17 Aspirin Coated [Ecotrin -] 81 mg PO DAILY #30 tablet.ec 07/05/17 Ciprofloxacin 0.3% Eye Drops [Ciloxan 0.3% Eye Drops -] 2 drop OU Q2H #30 drops 07/05/17 Folic Acid - 1 mg PO DAILY tablet 07/05/17 Propranolol HCl [Inderal -] 40 mg PO TID #90 tablet 07/05/17 Thiamine HCl [Vitamin B1 -] 100 mg PO DAILY #30 tablet 07/05/17 - Discharge Referral Referred to [facility] No
--- NOTE | 2017-07-05 11:37 | PN ---
Progress Note, Physician History of Present Illness: pulmonary alert,nad,-sob,-cough. - Current Medication List Current Medications: Active Medications Aspirin (Ecotrin -) 81 mg PO DAILY [facility] Last Admin: 07/05/17 09:06 Dose: 81 mg Ciprofloxacin (Ciloxan 0.3% Eye Drops -) 2 drop OU Q2H [facility] Stop: 07/06/17 13:14 Last Admin: 07/05/17 11:25 Dose: 2 drop Folic Acid (Folic Acid -) 1 mg PO DAILY [facility] Last Admin: 07/05/17 09:06 Dose: 1 mg Heparin Sodium (Porcine) (Heparin -) 5,000 unit SQ TID [facility] Last Admin: 07/05/17 05:41 Dose: 5,000 unit Ampicillin Sodium/Sulbactam (Sodium 1.5 gm/ Sodium Chloride) 100 mls @ 200 mls/ hr IVPB Q6H-IV [facility] Last Admin: 07/05/17 09:05 Dose: 200 mls/hr Dextrose/Sodium Chloride (D5-Ns -) 1,000 mls @ 75 mls/hr IV ASDIR [facility] Last Admin: 07/05/17 09:19 Dose: Not Given Lorazepam (Ativan -) 1 mg PO Q4H PRN PRN Reason: WITHDRAWAL(CONT SUBST) Lorazepam (Ativan Injection -) 0.5 mg IVPUSH Q4H PRN PRN Reason: WITHDRAWAL(CONT SUBST) Multivitamins/Minerals/Vitamin C (Tab-A-Vit -) 1 tab PO DAILY [facility] Last Admin: 07/05/17 09:07 Dose: 1 tab Propranolol HCl (Inderal -) 40 mg PO TID [facility] Last Admin: 07/05/17 05:41 Dose: 40 mg Thiamine HCl (Vitamin B1 -) 100 mg PO DAILY [facility] Last Admin: 07/05/17 09:07 Dose: 100 mg - Objective Vital Signs: Vital Signs Temperature 98.0 F 07/05/17 08:00 Pulse Rate 100 H 07/05/17 08:00 Respiratory Rate 14 07/05/17 08:00 Blood Pressure 115/70 07/05/17 08:00 O2 Sat by Pulse Oximetry (%) 97 07/05/17 09:00 Constitutional: Yes: Calm, Thin Eyes: Yes: WNL HENT: Yes: WNL Neck: Yes: WNL Cardiovascular: Yes: Regular Rate and Rhythm, S1, S2 Respiratory: Yes: Diminished Gastrointestinal: Yes: Normal Bowel Sounds, Soft Extremities: Yes: WNL Edema: No Labs: CBC, BMP 07/05/17 05:20 07/04/17 05:10 Assessment/Plan A/P New Onset Atrial Fibrillation with RVR now in sinus Lung Mass suspicious for malignancy Pulmonary HTN Alcohol Dependence consider conservative treatment in view of his advanced age and poor performance status, pt likely would not be a candidate for treatment DVT prophylaxis DR BELL Problem List - Problems (1) Atrial fibrillation with rapid ventricular response Code(s): I48.91 - UNSPECIFIED ATRIAL FIBRILLATION (2) Lung mass Code(s): R91.8 - OTHER NONSPECIFIC ABNORMAL FINDING OF LUNG FIELD (3) Alcohol dependence Code(s): F10.20 - ALCOHOL DEPENDENCE, UNCOMPLICATED (4) Pulmonary hypertension Code(s): I27.20 - PULMONARY HYPERTENSION, UNSPECIFIED
--- NOTE | 2017-07-05 11:57 | PN ---
Progress Note (short form) - Note Progress Note: s: no cp sob palps dizzy o: Vital Signs Period Temp Pulse Resp BP Sys/Cosby Pulse Ox Last 24 Hr 97.6 F-98.7 F 90-106 14-20 115-132/67-88 97-98 nad no jvd irreg,rr, s1s2 no mrg cta bl nl eff awake, alert, appropriate no jaundice diaphoresis abd nt nd pos bs no le e/c/c Current Medications Generic Name Dose Route Start Last Admin Trade Name Freq PRN Reason Stop Dose Admin Aspirin 81 mg 07/05/17 10:00 07/05/17 09:06 Ecotrin - PO 81 mg DAILY KAREN Administration Ciprofloxacin 2 drop 07/04/17 13:15 07/05/17 11:25 Ciloxan 0.3% Eye Drops - OU 07/06/17 13:14 2 drop Q2H KAREN Administration Folic Acid 1 mg 07/05/17 10:00 07/05/17 09:06 Folic Acid - PO 1 mg DAILY KAREN Administration Heparin Sodium (Porcine) 5,000 unit 06/29/17 22:00 07/05/17 05:41 Heparin - SQ 5,000 unit TID KAREN Administration Ampicillin Sodium/Sulbactam 100 mls @ 200 mls/hr 07/03/17 16:49 07/05/17 09: 05 Sodium 1.5 gm/ Sodium Chloride IVPB 200 mls/hr Q6H-IV KAREN Administration Dextrose/Sodium Chloride 1,000 mls @ 75 mls/hr 07/04/17 08:45 07/05/17 09:19 D5-Ns - IV Not Given ASDIR KAREN Lorazepam 1 mg 06/29/17 17:13 Ativan - PO Q4H PRN WITHDRAWAL(CONT SUBST) Lorazepam 0.5 mg 06/30/17 16:37 Ativan Injection - IVPUSH Q4H PRN WITHDRAWAL(CONT SUBST) Multivitamins/Minerals/Vitamin C 1 tab 07/05/17 10:00 07/05/17 09:07 Tab-A-Vit - PO 1 tab DAILY KAREN Administration Propranolol HCl 40 mg 07/03/17 14:00 07/05/17 05:41 Inderal - PO 40 mg TID KAREN Administration Thiamine HCl 100 mg 07/05/17 10:00 07/05/17 09:07 Vitamin B1 - PO 100 mg DAILY KAREN Administration CBC, BMP 07/05/17 05:20 07/04/17 05:10 tele: afib, rate controlled a/p: 87 m no known pmhx found at home on floor. new pafib with rvr: -cont inderal, rate controlled -has indication for ac but he is currently not a safe candidate for ac given his etoh abuse/fall risk as well as lung mass/malignancy -echo unremarkable -tsh wnl possible fall/syncope: -details of event unclear, pt does not recall how he ended up on floor or for how long -likely related to etoh abuse -echo here unremarkable, no signs acs - appears weak, pt following. - O2 sat low 90's on NC --> con't to monitor. pt refusing home services/snf. Cardiac leal stable for dc.
--- NOTE | 2017-07-05 12:18 | PN ---
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 Pt was able to hold a cup, intending to drink independently but could not feed himself.He is fed all meals. He is weak and deconditioned for ADL. Pt was evaluated by Psychiatry twice and has been deemed competent.He wants to go home. Plan is for discharge home. Case discussed with CCC, nursing,call placed to PMD. Neighbors have told staff that they will care for him and are aware of his functional limitations. Suggest pureed food and sips of thin liquid/Supplements as tolerated.
[2017-07-05 13:25] VITALS: BP 122/74; PULSE 98; TEMP 98.1
== END 2017-07-05 16:50 | disposition home or self-care (01) | DRG 557 ==
LOC: JER 12:01 → JERBED 16:01 → OBSVTOIN 17:13 → J4W 18:29
PROVIDERS: ADMIT Hospitalist; ATTEND Internal Medicine
DX: M62.82 Rhabdomyolysis (principal); G92 Toxic encephalopathy; J69.0 Pneumonitis due to inhalation of food and vomit; I48.0 Paroxysmal atrial fibrillation; E86.0 Dehydration; R91.8 Other nonspecific abnormal finding of lung field; G31.2 Degeneration of nervous system due to alcohol; I27.20 Pulmonary hypertension, unspecified; R55 Syncope and collapse; F10.20 Alcohol dependence, uncomplicated; R13.10 Dysphagia, unspecified; E87.6 Hypokalemia; D64.9 Anemia, unspecified; H10.89 Other conjunctivitis; R41.82 Altered mental status, unspecified
CPT/HCPCS: 36415; 36600; 70450-TC; 71010-TC; 71250-TC; 80048; 80053; 80307; 81003; 81015; 82550; 82553; 82607; 82747; 82803; 83036; 83605; 83735; 84100; 84443; 84484; 85014; 85025; 85027; 87086; 93005; 93010; 93306-TC; 93970-TC; 97116-GP; 97161-GP; 99284-25; G0378; J1644

== ENCOUNTER 2017-07-10 10:43 | Inpatient (IN) | payer OTHER ==
--- NOTE | 2017-07-10 11:08 | PDOC ---
Attending Attestation - Resident Resident Name: Jacy Garrison - ED Attending Attestation I have performed the following: I have examined & evaluated the patient, The case was reviewed & discussed with the resident, I agree w/resident's findings & plan, Exceptions are as noted - Medical Decision Making 07/10/17 11:07 I, Dr. Carline Nair, DO, attest that this document has been prepared under my direction and personally reviewed by me in its entirety. I further attest, that it accurately reflects all work, treatment, procedures and medical decision -making performed by me.
--- NOTE | 2017-07-10 11:17 | PDOC ---
History of Present Illness - History of Present Illness Initial Comments: 07/10/17 11:32 Patient is an 87 yo male with PMHx of , who was BIBA s/p fall. According to EMS , neighbors found him on the floor, unsure of how long. However patient denies fall. Patient admits to cough with associated phlegm. He also complains of back pain. He denies normally ambulating with a cane or walker. Patient states he wants to be admitted to a SNF. Patient denies LOC, head trauma, CP, SOB, fever, chills, nausea, vomit, dysuria. 07/10/17 11:43 <Adrianna Ramirez - Last Filed: 07/10/17 11:56> <Carline Nair - Last Filed: 07/10/17 14:10> - General Chief Complaint: Injury Stated Complaint: FALL Time Seen by Provider: 07/10/17 10:59 Past History <Adrianna Ramirez - Last Filed: 07/10/17 11:56> - Past Medical History Anemia: No Asthma: No Cancer: No Cardiac Disorders: No CVA: No COPD: No CHF: No Dementia: No Diabetes: No GI Disorders: No Disorders: No HTN: No Hypercholesterolemia: No Liver Disease: No Seizures: No Thyroid Disease: No - Suicide/Smoking/Psychosocial Hx Smoking History: Unknown if ever smoked Have you smoked in the past 12 months: No Hx Alcohol Use: ("few beers a day") Drug/Substance Use Hx: No Substance Use Type: Alcohol Hx Substance Use Treatment: No <Carline Nair - Last Filed: 07/10/17 14:10> - Past Medical History Allergies/Adverse Reactions: Allergies Allergy/AdvReac Type Severity Reaction Status Date / Time No Known Allergies Allergy Verified 07/10/17 12:06 Home Medications: Ambulatory Orders Amoxicillin/Potassium Clav [Augmentin 500-125 Tablet] 1 each PO DAILY #2 tablet 07/05/17 Aspirin Coated [Ecotrin -] 81 mg PO DAILY #30 tablet.ec 07/05/17 Ciprofloxacin 0.3% Eye Drops [Ciloxan 0.3% Eye Drops -] 2 drop OU Q2H #30 drops 07/05/17 Folic Acid 1 mg PO DAILY #30 tablet 07/05/17 Propranolol HCl [Inderal LA -] 60 mg PO TID #90 capsule.er 07/05/17 Thiamine HCl [Vitamin B1 -] 100 mg PO DAILY #30 tablet 07/05/17 Review of Systems - Review of Systems Comments:: 07/10/17 11:40 GENERAL/CONSTITUTIONAL: No fever or chills. No weakness. HEAD, EYES, EARS, NOSE AND THROAT: No change in vision. No ear pain or discharge. No sore throat. GASTROINTESTINAL: No nausea, vomiting, diarrhea or constipation. GENITOURINARY: No dysuria, frequency, or change in urination. CARDIOVASCULAR: No chest pain or shortness of breath. RESPIRATORY: +productive cough, wheezing, or hemoptysis. MUSCULOSKELETAL: +back pain. No other joint or muscle swelling or pain. No neck pain SKIN: No rash NEUROLOGIC: No headache, vertigo, loss of consciousness, or change in strength/ sensation. ENDOCRINE: No increased thirst. No abnormal weight change. HEMATOLOGIC/LYMPHATIC: No anemia, easy bleeding, or history of blood clots. ALLERGIC/IMMUNOLOGIC: No hives or skin allergy. <Adrianna Ramirez - Last Filed: 07/10/17 11:56> *Physical Exam - Physical Exam Comments: 07/10/17 11:41 GENERAL: Awake, alert, and fully oriented, in no acute distress HEAD: No signs of trauma EYES: PERRLA, EOMI, sclera anicteric, conjunctiva clear ENT: Dry mucous membranes. Auricles normal inspection, hearing grossly normal, nares patent, oropharynx clear without exudates. NECK: Normal ROM, supple, no lymphadenopathy, JVD, or masses LUNGS: Bilateral rhonchi. HEART: Tachycardic. no murmurs, rubs or gallops ABDOMEN: Soft, nontender, normoactive bowel sounds. No guarding, no rebound. No masses EXTREMITIES: Normal range of motion, no edema. No clubbing or cyanosis. No cords, erythema, or tenderness NEUROLOGICAL: Cranial nerves II through XII grossly intact. Normal speech, normal gait SKIN: Warm, Dry, normal turgor, no rashes or lesions noted. <Adrianna Ramirez - Last Filed: 07/10/17 11:56> Heart Score/ECG Review - ECG Intrepretation Comment:: 07/10/17 12:47 afib at 149 w rvr, t wave inversions lateral leads, l axis, abnl ekg 07/10/17 12:47 afib at 112, l axis, t wave inversions lateral leads, abnl ekg <Carline Nair - Last Filed: 07/10/17 14:10> ED Treatment Course - LABORATORY CBC & Chemistry Diagram: 07/10/17 11:40 07/10/17 11:38 <Adrianna Ramirez - Last Filed: 07/10/17 11:56> - LABORATORY CBC & Chemistry Diagram: 07/10/17 11:40 07/10/17 11:38 <Carline Nair - Last Filed: 07/10/17 14:10> Medical Decision Making - Medical Decision Making 07/10/17 12:46 a/p: 87yo male brought in by medics for eval of fall -found down on the ground by caregiver pt unable to provide a complete hx of how or why he fell denies hitting his head labs, ekg, cxr, ivf hydration concern for afib rvr, rhabdo will check full labs 07/10/17 13:32 pt with afib rvr, given iv cardizem with minimal improvement in rate will start cardizem gtt and admit 07/10/17 13:[address] Munoz who accepts the patient to the hospital on tele consult placed to dr. garcia from neurology and dr. erazo cardio 07/10/17 14:09 cxr show poss infilrate to RLL, will start abx <Carline Nair - Last Filed: 07/10/17 14:10> *DC/Admit/Observation/Transfer <Adrianna Ramirez - Last Filed: 07/10/17 11:56> - Discharge Dispostion Admit: Yes - Attestations Physician Attestion: 07/10/17 13:33 I, Dr. Carline Nair, DO, attest that this document has been prepared under my direction and personally reviewed by me in its entirety. I further attest, that it accurately reflects all work, treatment, procedures and medical decision -making performed by me. <Carline Nair - Last Filed: 07/10/17 14:10> Diagnosis at time of Disposition: Atrial fibrillation with rapid ventricular response - Discharge Dispostion Condition at time of disposition: Fair
[2017-07-10] MEDS ORDERED: SODIUM CHLORIDE 0.9% 1000 ML INFUS.BAG IV ONE ×2 (11:38)
[2017-07-10] MEDS ORDERED: dilTIAZem HCL 50 MG/10 ML - 10 ML VIAL IVPUSH ONE (11:55)
[2017-07-10 11:57] LABS: BASOPHIL 0.7 % (0-2.0); EOSINOPHIL 0.5 % (0-4.5); MCH 26.2 pg (25.7-33.7); MCHC 31.8 g/dl (32.0-35.9); MEAN CELL VOLUME 82.5 fl (80-96); MEAN PLT VOLUME 8.5 fl (7.5-11.1); PLATELET COUNT 304 K/MM3 (134-434); RDW 15.3 % (11.9-15.9); WHITE BLOOD COUNT 7.9 K/mm3 (4.0-10.0)
[2017-07-10] MEDS ORDERED: dilTIAZem HCL 125 MG/25 ML - 25 ML VIAL ONE ×2 (12:01→12:02)
[2017-07-10 12:06] VITALS: BMI 24.0
[2017-07-10 13:08] LABS: ALBUMIN 2.7 g/dl (3.4-5.0); ANION GAP 10 (8-16); BILIRUBIN,TOTAL 1.1 mg/dL (0.2-1.0); CALCIUM 8.1 mg/dL (8.5-10.1); CO2 26 mmol/L (21-32); CREATININE 0.8 mg/dL (0.7-1.3); GLUCOSE,RANDOM 83 mg/dL (74-106); MAGNESIUM 2.5 mg/dL (1.8-2.4); SGOT/AST 19 U/L (15-37); SGPT/ALT 26 U/L (12-78)
[2017-07-10 13:11] LABS: ALK PHOS 88 U/L (45-117); CPK 69 IU/L (39-308); TOT PROT 6.2 g/dl (6.4-8.2); TROPONIN I 0.02 ng/ml (0.00-0.05)
[2017-07-10 13:40] LABS: INR 1.21 (0.82-1.09); PROTHROMBIN TIME (PATIENT) 13.7 SEC (9.98-11.88)
[2017-07-10 13:44] LABS: URINE APPEARANCE SLCLOUDY; URINE BILIRUBIN NEGATIVE (NEGATIVE); URINE BLOOD 2+ (NEGATIVE); URINE COLOR AMBER; URINE GLUCOSE (UA) NEGATIVE (NEGATIVE); URINE KETONE 1+ (NEGATIVE); URINE NITRITE NEGATIVE (NEGATIVE); URINE PROTEIN NEGATIVE (NEGATIVE)
--- NOTE | 2017-07-10 13:52 | EKG ---
Test Reason : Blood Pressure : / mmHG Vent. Rate : 149 BPM Atrial Rate : 159 BPM P-R Int : 000 ms QRS Dur : 082 ms QT Int : 312 ms P-R-T Axes : 000 -37 114 degrees QTc Int : 491 ms ATRIAL FIBRILLATION WITH RAPID VENTRICULAR RESPONSE LEFT AXIS DEVIATION NONSPECIFIC ST AND T WAVE ABNORMALITY ABNORMAL ECG WHEN COMPARED WITH ECG OF 01-JUL-2017 09:06, ATRIAL FIBRILLATION HAS REPLACED SINUS RHYTHM VENT. RATE HAS INCREASED BY 79 BPM T WAVE VARIATION Confirmed by MELVIN DURBIN MD ([id number]) on 07/10/2017 1:52:28 PM Referred By: Confirmed By:MELVIN DURBIN MD
[2017-07-10] MEDS ORDERED: AZITHROMYCIN IVPB 500 MG in DEXTROSE 5%-WATER - 250 ML IVPB ONE (14:08)
[2017-07-10] MEDS ORDERED: cefTRIAXone 1 GM/50 ML BAG (PRE-DOCKED) IVPB ONE (14:08)
[2017-07-10 14:16] LABS: URINE BACTERIA RARE /hpf (NONE SEEN); URINE MUCUS RARE; URINE RBC 52 /hpf (0-3); URINE WBC 14 /hpf (3-5)
[2017-07-10] MEDS: DILTIAZEM INJECTION 125 MG in DEXTROSE 5%-WATER - 100 ML IVPB SCH (14:21)
[2017-07-10] MEDS ORDERED: CEFTRIAXONE 1 GM/50 ML BAG ONE (14:23)
[2017-07-10] MEDS ORDERED: AZITHROMYCIN IVPB 250 ML IVPB ONE (14:23)
--- NOTE | 2017-07-10 17:03 | HP ---
Admitting History and Physical - Primary Care Physician PCP: Ralph Munoz - Admission History of Present Illness: 87 yo male with PMHx of , who was BIBA s/p fall. According to EMS, neighbors found him on the floor, unsure of how long. However patient denies fall. Patient admits to cough with associated phlegm. He also complains of back pain. He denies normally ambulating with a cane or walker. Patient states he wants to be admitted to a SNF. Patient denies LOC, head trauma, CP, SOB, fever, chills, nausea, vomit, dysuria. - Past Medical History Cardiovascular: Yes: AFIB Pulmonary: Yes: Other (r lung mass) - Smoking History Smoking history: Unknown if ever smoked Have you smoked in the past 12 months: No - Alcohol/Substance Use Hx Alcohol Use: ("few beers a day") Home Medications - Allergies Allergies/Adverse Reactions: Allergies Allergy/AdvReac Type Severity Reaction Status Date / Time No Known Allergies Allergy Verified 07/10/17 12:06 - Home Medications Home Medications: Ambulatory Orders Aspirin Coated [Ecotrin -] 81 mg PO DAILY #30 tablet.ec 07/05/17 Ciprofloxacin 0.3% Eye Drops [Ciloxan 0.3% Eye Drops -] 2 drop OU Q2H #30 drops 07/05/17 Folic Acid 1 mg PO DAILY #30 tablet 07/05/17 Thiamine HCl [Vitamin B1 -] 100 mg PO DAILY #30 tablet 07/05/17 Propranolol HCl [Inderal -] 80 mg PO BID tablet 07/11/17 Physical Examination Vital Signs: Vital Signs Temperature 97.8 F 07/10/17 15:58 Pulse Rate 124 H 07/10/17 15:58 Respiratory Rate 16 07/10/17 15:58 Blood Pressure 137/93 07/10/17 15:58 O2 Sat by Pulse Oximetry (%) 96 07/10/17 15:58 Constitutional: Yes: No Distress HENT: Yes: Atraumatic Neck: Yes: Supple Cardiovascular: Yes: Regular Rate and Rhythm Respiratory: Yes: CTA Bilaterally Gastrointestinal: Yes: Normal Bowel Sounds Extremities: Yes: WNL Neurological: Yes: Alert, Oriented Labs: CBC, BMP 07/10/17 11:40 07/10/17 11:38 Imaging - Results X-ray: Report Reviewed Problem List - Problems (1) Atrial fibrillation with rapid ventricular response Assessment/Plan: on iv cardizem cardio consult asa Code(s): I48.91 - UNSPECIFIED ATRIAL FIBRILLATION (2) Alcohol dependence Code(s): F10.20 - ALCOHOL DEPENDENCE, UNCOMPLICATED (3) Lung mass Assessment/Plan: work up as per pmd Code(s): R91.8 - OTHER NONSPECIFIC ABNORMAL FINDING OF LUNG FIELD (4) Dementia Assessment/Plan: not on any meds Code(s): F03.90 - UNSPECIFIED DEMENTIA WITHOUT BEHAVIORAL DISTURBANCE (5) Gout Code(s): M10.9 - GOUT, UNSPECIFIED Qualifiers: Gout site: toe Gout etiology: idiopathic Chronicity: acute Laterality: right Qualified Code(s): M10.071 - Idiopathic gout, right ankle and foot Assessment/Plan Active Medications Generic Name Dose Route Start Last Admin Trade Name Freq PRN Reason Stop Dose Admin Diltiazem HCl 125 mg/ Dextrose 125 mls @ 5 mls/hr 07/10/17 13:00 07/10/17 14: 21 IVPB 5 mg/hr TITR KAREN 5 mls/hr Protocol Administration 5 MG/HR Laboratory Tests 07/10/17 07/10/17 07/10/17 11:38 11:38 11:38 WBC RBC Hgb Hct MCV MCH MCHC RDW Plt Count MPV Neutrophils % Lymphocytes % Monocytes % Eosinophils % Basophils % PT with INR INR PTT (Actin FS) 27.2 Sodium 137 Potassium 4.5 Chloride 101 Carbon Dioxide 26 Anion Gap 10 BUN 15 D Creatinine 0.8 D Creat Clearance w eGFR > 60 Random Glucose 83 D Lactic Acid 1.7 Calcium 8.1 L Magnesium 2.5 H Total Bilirubin 1.1 H AST 19 D ALT 26 D Alkaline Phosphatase 88 D Creatine Kinase 69 Troponin I 0.02 D B-Natriuretic Peptide Total Protein 6.2 L D Albumin 2.7 L D Urine Color Urine Appearance Urine pH Ur Specific [place] Urine Protein Urine Glucose (UA) Urine Ketones Urine Blood Urine Nitrite Urine Bilirubin Urine Urobilinogen Ur Epithelial Cells Urine Bacteria Urine Mucus 07/10/17 07/10/17 07/10/17 11:38 11:40 12:52 WBC 7.9 RBC 4.91 D Hgb 12.9 D Hct 40.5 D MCV 82.5 MCH 26.2 MCHC 31.8 L RDW 15.3 Plt Count 304 D MPV 8.5 Neutrophils % 80.0 Lymphocytes % 12.0 D Monocytes % 6.8 Eosinophils % 0.5 Basophils % 0.7 PT with INR 13.70 H INR 1.21 H PTT (Actin FS) Sodium Potassium Chloride Carbon Dioxide Anion Gap BUN Creatinine Creat Clearance w eGFR Random Glucose Lactic Acid Calcium Magnesium Total Bilirubin AST ALT Alkaline Phosphatase Creatine Kinase Troponin I B-Natriuretic Peptide 3591.24 H Total Protein Albumin Urine Color Urine Appearance Urine pH Ur Specific [place] Urine Protein Urine Glucose (UA) Urine Ketones Urine Blood Urine Nitrite Urine Bilirubin Urine Urobilinogen Ur Epithelial Cells Urine Bacteria Urine Mucus 07/10/17 13:14 WBC RBC Hgb Hct MCV MCH MCHC RDW Plt Count MPV Neutrophils % Lymphocytes % Monocytes % Eosinophils % Basophils % PT with INR INR PTT (Actin FS) Sodium Potassium Chloride Carbon Dioxide Anion Gap BUN Creatinine Creat Clearance w eGFR Random Glucose Lactic Acid Calcium Magnesium Total Bilirubin AST ALT Alkaline Phosphatase Creatine Kinase Troponin I B-Natriuretic Peptide Total Protein Albumin Urine Color Bernie Urine Appearance Slcloudy Urine pH 5.0 Ur Specific [place] 1.019 Urine Protein Negative Urine Glucose (UA) Negative Urine Ketones 1+ H Urine Blood 2+ H Urine Nitrite Negative Urine Bilirubin Negative Urine Urobilinogen 2.0 Ur Epithelial Cells Rare Urine Bacteria Rare Urine Mucus Rare Active Medications Generic Name Dose Route Start Last Admin Trade Name Shaheed PRN Reason Stop Dose Admin Aspirin 81 mg 07/11/17 10:00 Ecotrin - PO DAILY KAREN Folic Acid 1 mg 07/11/17 10:00 Folic Acid - PO DAILY KAREN Diltiazem HCl 125 mg/ Dextrose 125 mls @ 5 mls/hr 07/10/17 13:00 07/10/17 21: 32 IVPB 5 mg/hr TITR KAREN 5 mls/hr Protocol Titration 5 MG/HR Propranolol HCl 60 mg 07/10/17 22:00 Inderal La - PO TID KAREN Thiamine HCl 100 mg 07/11/17 10:00 Vitamin B1 - PO DAILY KAREN Active Medications Generic Name Dose Route Start Last Admin Trade Name Shaheed PRN Reason Stop Dose Admin Aspirin 81 mg 07/11/17 10:00 07/11/17 09:20 Ecotrin - PO 81 mg DAILY KAREN Administration Folic Acid 1 mg 07/11/17 10:00 07/11/17 09:20 Folic Acid - PO 1 mg DAILY KAREN Administration Propranolol HCl 80 mg 07/11/17 14:00 07/11/17 14:24 Inderal - PO 80 mg BID KAREN Administration Thiamine HCl 100 mg 07/11/17 10:00 07/11/17 09:20 Vitamin B1 - PO 100 mg DAILY KAREN Administration
--- NOTE | 2017-07-10 17:40 | CON.NEURO ---
Consult - History of Present Illness History of Present Illness: 87 yo male with PMHx of , who was BIBA s/p fall. According to EMS, neighbors found him on the floor, unsure of how long. However patient denies fall. Patient admits to cough with associated phlegm. He also complains of back pain. He denies normally ambulating with a cane or walker. Patient states he wants to be admitted to a SNF. Patient denies LOC, head trauma, CP, SOB, fever, chills, nausea, vomit, dysuria. admitted last week -- difficulty caring for himself. lives alone, no immedite family-- few yrs back ; longtime neighbor bedside -Ayah, tries to help out , cleaning, cooking though he is unable to care fro himself any longer. + incontinence and shuffling gait HD CT IMPRESSION: No significant interval change or acute intracranial pathology is identified. Moderate to marked ventriculomegaly that may be due to central atrophy. Correlate to rule out normal pressure hydrocephalus versus aqueduct of Sylvius stenosis/narrowing. - History Source History Provided By: Friend - Alcohol/Substance Use Hx Alcohol Use: Yes ("few beers a day") - Smoking History Smoking history: Unknown if ever smoked Have you smoked in the past 12 months: No - Social History Usual Living Arrangement: Alone Home Medications - Allergies Allergies/Adverse Reactions: Allergies Allergy/AdvReac Type Severity Reaction Status Date / Time No Known Allergies Allergy Verified 07/10/17 12:06 - Home Medications Home Medications: Ambulatory Orders Amoxicillin/Potassium Clav [Augmentin 500-125 Tablet] 1 each PO DAILY #2 tablet 07/05/17 Aspirin Coated [Ecotrin -] 81 mg PO DAILY #30 tablet.ec 07/05/17 Ciprofloxacin 0.3% Eye Drops [Ciloxan 0.3% Eye Drops -] 2 drop OU Q2H #30 drops 07/05/17 Folic Acid 1 mg PO DAILY #30 tablet 07/05/17 Propranolol HCl [Inderal LA -] 60 mg PO TID #90 capsule.er 07/05/17 Thiamine HCl [Vitamin B1 -] 100 mg PO DAILY #30 tablet 07/05/17 Physical Exam-Neuro Vital Signs: Vital Signs Temperature 98.4 F 07/10/17 17:12 Pulse Rate 104 H 07/10/17 17:12 Respiratory Rate 18 07/10/17 17:12 Blood Pressure 146/80 07/10/17 17:12 O2 Sat by Pulse Oximetry (%) 97 07/10/17 17:24 Labs: CBC, BMP 07/10/17 11:40 07/10/17 11:38 INR, PTT INR 1.21 (0.82-1.09) H 07/10/17 12:52 - Neuro Exam Level Of Consciousness: Yes: Alert (awake , not oriented to place, yr, follows basic requests, lef eye ptosis, red, no focal weakness, +cogwheel, no tremor, inc tone LE, plantars up ) Imaging - Results Cat Scan: Report Reviewed, Image Reviewed Problem List - Problems (1) Normal pressure hydrocephalus Code(s): G91.2 - (IDIOPATHIC) NORMAL PRESSURE HYDROCEPHALUS (2) Dementia Code(s): F03.90 - UNSPECIFIED DEMENTIA WITHOUT BEHAVIORAL DISTURBANCE Assessment/Plan 87 yo male who lives by himself with progressive dementia + incontinence and shuffling gait --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 would not recommend a shunt/LP given his age and long-term dementia and poor functional status. 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
[2017-07-10 18:12] LABS: URINE LEUK ESTERASE TRACE (NEGATIVE)
[2017-07-11] MEDS: ASPIRIN COATED 81 MG TABLET.EC PO SCH (09:20)
[2017-07-11] MEDS: FOLIC ACID 1 MG TABLET (FP) PO SCH (09:20)
[2017-07-11] MEDS: THIAMINE HCL 100 MG TABLET (FP) PO SCH (09:20)
--- NOTE | 2017-07-11 10:28 | CON.CARD ---
Cardiology Consult (text) - Consultation Consultation Note: cc: found at home on floor hpi: 87 yo with h/o new dx of afib this month (no AC due to bleeding/fall risk) , etoh, right lung mass and recent admission this month for fall p/w recurrent fall. Patient discharged home b/c declined placement at rehab/snf. According to EMS, neighbors found him on the floor, unsure of how long. Patient does not recall events. Currently denies complaints. States he wasn' t eating very much prior to hospitalization. denies etoh. Unclear whether he was taking propanolol per report, + productive cough. + back pain. Patient denies CP, SOB, palps, dizzy, pnd, orthopnea, le edema. In ER found to be in afib with rvr in ER. HR did not respond to IV dilt --> started on dilt drip. Also given IVF. pmh/psh: per hpi fam hx: denies cardiac disease. 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 ros: per hpi; no nvd, f/c/s, walsh, bleeding, rashes meds: Ambulatory Orders Amoxicillin/Potassium Clav [Augmentin 500-125 Tablet] 1 each PO DAILY #2 tablet 07/05/17 Aspirin Coated [Ecotrin -] 81 mg PO DAILY #30 tablet.ec 07/05/17 Ciprofloxacin 0.3% Eye Drops [Ciloxan 0.3% Eye Drops -] 2 drop OU Q2H #30 drops 07/05/17 Folic Acid 1 mg PO DAILY #30 tablet 07/05/17 Propranolol HCl [Inderal LA -] 60 mg PO TID #90 capsule.er 07/05/17 Thiamine HCl [Vitamin B1 -] 100 mg PO DAILY #30 tablet 07/05/17 Current Medications Aspirin (Ecotrin -) 81 mg PO DAILY KAREN Last Admin: 07/11/17 09:20 Dose: 81 mg Folic Acid (Folic Acid -) 1 mg PO DAILY KAREN Last Admin: 07/11/17 09:20 Dose: 1 mg Diltiazem HCl 125 mg/ Dextrose 125 mls @ 5 mls/hr IVPB TITR KAREN; 5 MG/HR PRN Reason: Protocol Last Titration: 07/11/17 07:33 Dose: 3 mg/hr, 3 mls/hr Propranolol HCl (Inderal La -) 60 mg PO TID KAREN Thiamine HCl (Vitamin B1 -) 100 mg PO DAILY [facility] Last Admin: 07/11/17 09:20 Dose: 100 mg pe: Vital Signs - 24 hr 07/10/17 07/10/17 07/10/17 10:53 12:00 13:14 Temperature 97.5 F L 98.5 F Pulse Rate 105 H Pulse Rate [ 130 H Left Apical] Respiratory 28 H 16 Rate Blood Pressure 150/77 Blood Pressure 130/76 [Left Arm] O2 Sat by Pulse 100 97 Oximetry (%) 07/10/17 07/10/17 07/10/17 14:21 15:58 17:11 Temperature 97.8 F 98.4 F Pulse Rate 134 H 104 H Pulse Rate [ 124 H Left Apical] Respiratory 16 18 Rate Blood Pressure 134/93 146/80 Blood Pressure 137/93 [Left Arm] O2 Sat by Pulse 96 Oximetry (%) 07/10/17 07/10/17 07/10/17 17:12 17:24 18:48 Temperature 98.4 F Pulse Rate 104 H 139 H Pulse Rate [ Left Apical] Respiratory 18 Rate Blood Pressure 146/80 Blood Pressure [Left Arm] O2 Sat by Pulse 97 Oximetry (%) 07/10/17 07/10/17 07/10/17 20:55 21:32 21:59 Temperature 97.7 F Pulse Rate 86 88 Pulse Rate [ Left Apical] Respiratory 18 Rate Blood Pressure 133/67 133/67 Blood Pressure [Left Arm] O2 Sat by Pulse 99 Oximetry (%) 07/10/17 07/11/17 07/11/17 22:00 02:00 05:47 Temperature 97.7 F 98.2 F Pulse Rate 62 60 Pulse Rate [ Left Apical] Respiratory 18 20 Rate Blood Pressure 144/54 130/57 Blood Pressure [Left Arm] O2 Sat by Pulse 99 Oximetry (%) 07/11/17 07/11/17 07/11/17 07:28 07:33 07:34 Temperature 98.2 F Pulse Rate 60 75 Pulse Rate [ Left Apical] Respiratory 20 20 Rate Blood Pressure 130/57 147/53 Blood Pressure [Left Arm] O2 Sat by Pulse 99 99 Oximetry (%) 07/11/17 07/11/17 09:25 09:29 Temperature 98.5 F Pulse Rate 66 Pulse Rate [ Left Apical] Respiratory 18 Rate Blood Pressure 155/56 Blood Pressure [Left Arm] O2 Sat by Pulse 94 L Oximetry (%) Intake & Output 07/09/17 07/10/17 07/11/17 07/12/17 07:59 07:59 07:59 07:59 Intake Total 2637 Balance 2637 Weight 140 lb nad no jvd cachectic irreg, s1s2 no mrg dullness at right base, poor air movement, poor eff awake, alert no jaundice diaphoresis pos dp pt no carotid bruits abd nt nd pos bs no le e/c/c no carotid bruits CBC, BMP 07/10/17 11:40 07/10/17 11:38 Laboratory Tests 07/01/17 07/10/17 07/10/17 06:00 11:38 11:38 INR Lactic Acid 1.7 Magnesium 2.5 H Total Bilirubin 1.1 H AST 19 D ALT 26 D Alkaline Phosphatase 88 D Creatine Kinase 69 Troponin I 0.02 D B-Natriuretic Peptide Albumin 2.7 L D TSH 1.87 D 07/10/17 07/10/17 11:38 12:52 INR 1.21 H Lactic Acid Magnesium Total Bilirubin AST ALT Alkaline Phosphatase Creatine Kinase Troponin I B-Natriuretic Peptide 3591.24 H Albumin TSH ecg: afib with rvr, 149 bpm. anterolateral twi. repeat ecg: afib with rvr 112 bpm. additional lateral twi and t wave flattening in inferior leads. tele: afib in 120's overnight and briefly this am. otherwise rate controlled in the 80's. echo 06/2017: nl lv/rv, mild tr, mr, rvsp 30-40, mild ao root dil head ct with possible nph. see emr for full report. cxr 06/2017: increasing rt pleural effusion. but by my review --> right lobe mass still evident, increased congestion/infiltrates in right base. no clear effusion but cannot exclude. 87 yo with h/o new dx of afib this month (no AC due to bleeding/fall risk), etoh , right lung mass and recent admission this month for fall p/w recurrent fall. new pafib with rvr: -resume home inderal and wean off diltiazem drip. Will increase dose of inderal (short acting) to prevent rvr and change to bid dosing for compliance ( 80 mg bid). -has indication for ac but he is currently not a safe candidate for ac given his etoh abuse/fall risk as well as lung mass/malignancy -echo this month unremarkable -tsh this month wnl possible fall/syncope: -details of event unclear, pt does not recall how he ended up on floor or for how long - RVR may have contributed. Con't tele monitoring. -? related to etoh abuse. Head ct also with possible hydrocephalus. 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 Shunt/LP not recommended given his age and fci dementia and poor functional status. 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 - Con't valeria. will order labs today. - infectious eval, ? aspiration per pmd. RUL mass - CXR with possible increased effusion, but by my review can't exclude infiltrate. speech and swallow following on last admit. - s/p IVF in ER and possibly with recent poor po intake, so defer diuresis for now. mild ao dilation - on bb.
[2017-07-11] MEDS: DILTIAZEM INJECTION 125 MG in DEXTROSE 5%-WATER - 100 ML IVPB SCH (13:12)
[2017-07-11] MEDS: PROPRANOLOL HCL 40 MG TABLET PO SCH ×2 (14:24→21:44)
[2017-07-11 16:47] LABS: ALBUMIN 2.1 g/dl (3.4-5.0); ANION GAP 8 (8-16); CALCIUM 7.6 mg/dL (8.5-10.1); CO2 25 mmol/L (21-32); CREATININE 0.6 mg/dL (0.7-1.3); GLUCOSE,RANDOM 110 mg/dL (74-106); SGOT/AST 17 U/L (15-37); SGPT/ALT 19 U/L (12-78)
[2017-07-11 16:50] LABS: ALK PHOS 79 U/L (45-117); BILIRUBIN,TOTAL 0.8 mg/dL (0.2-1.0); CPK 51 IU/L (39-308); TOT PROT 5.1 g/dl (6.4-8.2); TROPONIN I 0.03 ng/ml (0.00-0.05)
--- NOTE | 2017-07-11 17:10 | PN ---
Progress Note (short form) - Note Progress Note: 87 yo male with PMHx of , who was BIBA s/p fall. According to EMS, neighbors found him on the floor, unsure of how long. However patient denies fall. Patient admits to cough with associated phlegm. He also complains of back pain. He denies normally ambulating with a cane or walker. Patient states he wants to be admitted to a SNF. Patient denies LOC, head trauma, CP, SOB, fever, chills, nausea, vomit, dysuria. admitted last week -- difficulty caring for himself. lives alone, no immedite family-- few yrs back ; longtime neighbor bedside -Ayah, tries to help out , cleaning, cooking though he is unable to care fro himself any longer. + incontinence and shuffling gait HD CT IMPRESSION: No significant interval change or acute intracranial pathology is identified. Moderate to marked ventriculomegaly that may be due to central atrophy. Correlate to rule out normal pressure hydrocephalus versus aqueduct of Sylvius stenosis/narrowing. FU : no new issues + afib -card following, no AC because fall risk - History Source History Provided By: Friend - Alcohol/Substance Use Hx Alcohol Use: Yes ("few beers a day") - Smoking History Smoking history: Unknown if ever smoked Have you smoked in the past 12 months: No - Social History Usual Living Arrangement: Alone Home Medications - Allergies Allergies/Adverse Reactions: Allergies Allergy/AdvReac Type Severity Reaction Status Date / Time No Known Allergies Allergy Verified 07/10/17 12:06 - Home Medications Home Medications: Ambulatory Orders Amoxicillin/Potassium Clav [Augmentin 500-125 Tablet] 1 each PO DAILY #2 tablet 07/05/17 Aspirin Coated [Ecotrin -] 81 mg PO DAILY #30 tablet.ec 07/05/17 Ciprofloxacin 0.3% Eye Drops [Ciloxan 0.3% Eye Drops -] 2 drop OU Q2H #30 drops 07/05/17 Folic Acid 1 mg PO DAILY #30 tablet 07/05/17 Propranolol HCl [Inderal LA -] 60 mg PO TID #90 capsule.er 07/05/17 Thiamine HCl [Vitamin B1 -] 100 mg PO DAILY #30 tablet 07/05/17 Physical Exam-Neuro Vital Signs: Vital Signs Temperature 98.9 F 07/11/17 14:00 Pulse Rate 63 07/11/17 14:00 Respiratory Rate 18 07/11/17 12:03 Blood Pressure 146/66 07/11/17 14:00 O2 Sat by Pulse Oximetry (%) 94 L 07/11/17 12:03 Labs: CBCD WBC 7.9 K/mm3 (4.0-10.0) 07/10/17 11:40 RBC 4.91 M/mm3 (4.00-5.60) D 07/10/17 11:40 Hgb 12.9 GM/dL (11.7-16.9) D 07/10/17 11:40 Hct 40.5 % (35.4-49) D 07/10/17 11:40 MCV 82.5 fl (80-96) 07/10/17 11:40 MCHC 31.8 g/dl (32.0-35.9) L 07/10/17 11:40 RDW 15.3 % (11.9-15.9) 07/10/17 11:40 Plt Count 304 K/MM3 (134-434) D 07/10/17 11:40 MPV 8.5 fl (7.5-11.1) 07/10/17 11:40 CMP Sodium 137 mmol/L (136-145) 07/10/17 11:38 Potassium 4.5 mmol/L (3.5-5.1) 07/10/17 11:38 Chloride 101 mmol/L (98-107) 07/10/17 11:38 Carbon Dioxide 26 mmol/L (21-32) 07/10/17 11:38 Anion Gap 10 (8-16) 07/10/17 11:38 BUN 15 mg/dL (7-18) D 07/10/17 11:38 Creatinine 0.8 mg/dL (0.7-1.3) D 07/10/17 11:38 Creat Clearance w eGFR > 60 (>60) 07/10/17 11:38 Calcium 8.1 mg/dL (8.5-10.1) L 07/10/17 11:38 Total Bilirubin 1.1 mg/dL (0.2-1.0) H 07/10/17 11:38 AST 19 U/L (15-37) D 07/10/17 11:38 ALT 26 U/L (12-78) D 07/10/17 11:38 Alkaline Phosphatase 88 U/L (45-117) D 07/10/17 11:38 Total Protein 6.2 g/dl (6.4-8.2) L D 07/10/17 11:38 Albumin 2.7 g/dl (3.4-5.0) L D 07/10/17 11:38 - Neuro Exam Level Of Consciousness: Yes: Alert (awake , not oriented to place, yr, follows basic requests, lef eye ptosis, red, no focal weakness, +cogwheel, no tremor, inc tone LE, plantars up ) Imaging - Results Cat Scan: Report Reviewed, Image Reviewed Problem List - Problems (1) Normal pressure hydrocephalus Code(s): G91.2 - (IDIOPATHIC) NORMAL PRESSURE HYDROCEPHALUS (2) Dementia Code(s): F03.90 - UNSPECIFIED DEMENTIA WITHOUT BEHAVIORAL DISTURBANCE Assessment/Plan 87 yo male who lives by himself with progressive dementia + incontinence and shuffling gait --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
--- NOTE | 2017-07-11 20:32 | PN ---
Progress Note, Physician - Current Medication List Current Medications: Active Medications Aspirin (Ecotrin -) 81 mg PO DAILY [facility] Last Admin: 07/11/17 09:20 Dose: 81 mg Folic Acid (Folic Acid -) 1 mg PO DAILY [facility] Last Admin: 07/11/17 09:20 Dose: 1 mg Propranolol HCl (Inderal -) 80 mg PO BID [facility] Last Admin: 07/11/17 14:24 Dose: 80 mg Thiamine HCl (Vitamin B1 -) 100 mg PO DAILY [facility] Last Admin: 07/11/17 09:20 Dose: 100 mg - Objective Vital Signs: Vital Signs Temperature 99 F 07/11/17 18:00 Pulse Rate 59 L 07/11/17 18:00 Respiratory Rate 18 07/11/17 18:00 Blood Pressure 161/60 07/11/17 18:00 O2 Sat by Pulse Oximetry (%) 94 L 07/11/17 12:03 Constitutional: Yes: No Distress HENT: Yes: Atraumatic Neck: Yes: Supple Cardiovascular: Yes: Regular Rate and Rhythm Respiratory: Yes: CTA Bilaterally Gastrointestinal: Yes: Normal Bowel Sounds Extremities: Yes: WNL Edema: No Peripheral Pulses WNL: Yes Neurological: Yes: Alert Labs: CBC, BMP 07/10/17 11:40 07/11/17 15:00 INR, PTT INR 1.21 (0.82-1.09) H 07/10/17 12:52 Problem List - Problems (1) Atrial fibrillation with rapid ventricular response Assessment/Plan: on po inderal cardio consult asa Code(s): I48.91 - UNSPECIFIED ATRIAL FIBRILLATION (2) Alcohol dependence Code(s): F10.20 - ALCOHOL DEPENDENCE, UNCOMPLICATED (3) Lung mass Assessment/Plan: work up as per pmd Code(s): R91.8 - OTHER NONSPECIFIC ABNORMAL FINDING OF LUNG FIELD (4) Dementia Assessment/Plan: not on any meds Code(s): F03.90 - UNSPECIFIED DEMENTIA WITHOUT BEHAVIORAL DISTURBANCE (5) Gout Code(s): M10.9 - GOUT, UNSPECIFIED Qualifiers: Gout site: toe Gout etiology: idiopathic Chronicity: acute Laterality: right Qualified Code(s): M10.071 - Idiopathic gout, right ankle and foot
[2017-07-12] MEDS ORDERED: PT OWN MED DRAWER 7, Y5N ONE (09:25)
[2017-07-12 09:46] VITALS: BP 160/72; PULSE 60; TEMP 98.7
[2017-07-12] MEDS: FOLIC ACID 1 MG TABLET (FP) PO SCH (09:47)
[2017-07-12] MEDS: ASPIRIN COATED 81 MG TABLET.EC PO SCH (09:47)
[2017-07-12] MEDS: THIAMINE HCL 100 MG TABLET (FP) PO SCH (09:47)
[2017-07-12] MEDS: PROPRANOLOL HCL 40 MG TABLET PO SCH (10:00)
[2017-07-12] MEDS ORDERED: PROPRANOLOL HCL 40 MG TABLET PO SCH (11:15)
--- NOTE | 2017-07-12 11:18 | PN ---
Progress Note (short form) - Note Progress Note: s: no cp sob palps dizzy o: Vital Signs Period Temp Pulse Resp BP Sys/Cosby Pulse Ox Last 24 Hr 97.5 F-99 F 50-73 18-20 126-161/60-74 94-98 nad no jvd cachectic rr, s1s2 no mrg dullness at right base, poor air movement, poor eff awake, alert no jaundice diaphoresis abd nt nd pos bs no le e/c/c Current Medications Generic Name Dose Route Start Last Admin Trade Name Shaheed PRN Reason Stop Dose Admin Aspirin 81 mg 07/11/17 10:00 07/12/17 09:47 Ecotrin - PO 81 mg DAILY KAREN Administration Folic Acid 1 mg 07/11/17 10:00 07/12/17 09:47 Folic Acid - PO 1 mg DAILY KAREN Administration Propranolol HCl 40 mg 07/12/17 11:15 Inderal - PO BID KAREN Thiamine HCl 100 mg 07/11/17 10:00 07/12/17 09:47 Vitamin B1 - PO 100 mg DAILY KAREN Administration CBC, BMP 07/10/17 11:40 07/11/17 15:00 ecg: afib with rvr, 149 bpm. anterolateral twi. repeat ecg: afib with rvr 112 bpm. additional lateral twi and t wave flattening in inferior leads. tele: sr, 40s at times, no pathologic bradycardia echo 06/2017: nl lv/rv, mild tr, mr, rvsp 30-40, mild ao root dil head ct with possible nph. see emr for full report. cxr 06/2017: increasing rt pleural effusion. but by my review --> right lobe mass still evident, increased congestion/infiltrates in right base. no clear effusion but cannot exclude. a/p: 87 yo with h/o new dx of afib this month (no AC due to bleeding/fall risk) , etoh, right lung mass and recent admission this month for fall p/w recurrent fall. pafib with rvr: -in sr now with sinus bar at times. will decrease inderal to 40 bid to avoid further sinus bar -has indication for ac but he is currently not a safe candidate for ac given his etoh abuse/fall risk as well as lung mass/malignancy -echo this month unremarkable -tsh this month wnl possible fall/syncope: -details of event unclear, pt does not recall how he ended up on floor or for how long -tele w/o etiology now or prior admit this month -no signs acs/chf -? related to etoh abuse. Head ct also with possible hydrocephalus. 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 Per report, patient now amenable to terminal computer operator care with rehab. RUL mass - pt declining workup mild ao dilation - on bb. cardiac leal stable for dc to snf
--- NOTE | 2017-07-12 18:26 | DS ---
Physical Examination Vital Signs: Vital Signs Temperature 98.7 F 07/12/17 09:46 Pulse Rate 60 07/12/17 09:46 Respiratory Rate 18 07/12/17 09:46 Blood Pressure 160/72 07/12/17 09:46 O2 Sat by Pulse Oximetry (%) 94 L 07/12/17 10:00 Labs: CBC, BMP 07/10/17 11:40 07/11/17 15:00 Discharge Summary Reason For Visit: A-FIB W/ RAPID VENTRICULAR RESPONSE Condition: Fair - Instructions Disposition: CUSTODIAL FACILITY - Home Medications Comprehensive Discharge Medication List: Ambulatory Orders Aspirin Coated [Ecotrin -] 81 mg PO DAILY #30 tablet.ec 07/05/17 Ciprofloxacin 0.3% Eye Drops [Ciloxan 0.3% Eye Drops -] 2 drop OU Q2H #30 drops 07/05/17 Folic Acid 1 mg PO DAILY #30 tablet 07/05/17 Thiamine HCl [Vitamin B1 -] 100 mg PO DAILY #30 tablet 07/05/17 Propranolol HCl 40 mg PO BID 07/12/17 dc to snf
--- NOTE | 2017-07-18 01:01 | EKG ---
Test Reason : Blood Pressure : / mmHG Vent. Rate : 112 BPM Atrial Rate : 104 BPM P-R Int : 000 ms QRS Dur : 082 ms QT Int : 366 ms P-R-T Axes : 000 -29 108 degrees QTc Int : 499 ms ATRIAL FIBRILLATION WITH RAPID VENTRICULAR RESPONSE NONSPECIFIC ST AND T WAVE ABNORMALITY ABNORMAL ECG WHEN COMPARED WITH ECG OF 10-JUL-2017 11:50, NO SIGNIFICANT CHANGE WAS FOUND Confirmed by MELVIN DURBIN MD ([id number]) on 07/18/2017 1:01:32 AM Referred By: Confirmed By:MELVIN DURBIN MD
== END 2017-07-12 14:47 | DRG 309 ==
LOC: JER 10:43 → JERBED 13:38 → UNDOADMIN 14:11 → JERBED 14:11 → J4W 16:45
PROVIDERS: ADMIT Internal Medicine; ATTEND Internal Medicine
DX: I48.0 Paroxysmal atrial fibrillation (principal); G91.2 (Idiopathic) normal pressure hydrocephalus; J90 Pleural effusion, not elsewhere classified; R91.8 Other nonspecific abnormal finding of lung field; F03.90 Unspecified dementia, unspecified severity, without behavioral disturbance, psychotic disturbance, mood disturbance, and anxiety; R55 Syncope and collapse; M10.071 Idiopathic gout, right ankle and foot
CPT/HCPCS: 36415; 70450-TC; 71010-TC; 72100-TC; 80053; 81003; 81015; 82550; 83605; 83735; 83880; 84484; 85025; 85610; 85730; 87040; 93005; 93010; 99284-25

== ENCOUNTER 2017-08-04 23:34 | Inpatient (IN) | payer OTHER ==
[2017-08-04 23:55] VITALS: BMI 21.6
[2017-08-05] MEDS ORDERED: PIPERACIL/TAZOB 3.375 GM 3.375 GM/50 ML PREMIX IVPB ONE (00:45)
[2017-08-05] MEDS ORDERED: VANCOMYCIN 1,000 MG in DEXTROSE 5%-WATER - 250 ML IVPB ONE (00:45)
[2017-08-05] MEDS ORDERED: ACETAMINOPHEN 1000 MG/100 ML VIAL (NON FORMULARY) IVPB ONE (00:46)
[2017-08-05 00:50] LABS: BASO % 0.7 % (0-2.0); EOS % 2.5 % (0-4.5); HEMATOCRIT 33.4 % (35.4-49); HEMOGLOBIN 10.8 GM/dL (11.7-16.9); LYMPH % 21.6 % (8-40); MCH 27.1 pg (25.7-33.7); MCHC 32.2 g/dl (32.0-35.9); MEAN CELL VOLUME 84.2 fl (80-96); MEAN PLT VOLUME 7.9 fl (7.5-11.1); NEUT % 67.2 % (42.8-82.8); PLATELET COUNT 288 K/MM3 (134-434); RBC 3.97 M/mm3 (4.00-5.60); RDW 17.1 % (11.9-15.9); WHITE BLOOD COUNT 8.2 K/mm3 (4.0-10.0)
[2017-08-05 00:52] LABS: VENOUS PC02 46.5 mmHg (38-52); VENOUS PH 7.41 (7.32-7.42); VENOUS PO2 24.5 mmHg (28-48)
--- NOTE | 2017-08-05 00:54 | PDOC ---
History of Present Illness - General History Source: Patient, EMS, Intermediate Records, Old Records Exam Limitations: Dementia - History of Present Illness Initial Comments: 08/05/17 01:03 The patient is a 87 year old male, with a significant past medical history of Atrial fibrillation, pulmonary hypertension, lung mass, dementia, who presents to the emergency department from [facility] for evaluation of productive cough for approximately 2 weeks. Per records patient has had a productive of cough for approximately 2 weeks, for which his PCP Dr. Jones started him on 250 mg Levaquin (x 7 days). Patient completed his dose of Levaquin on 07/27/17 with minimal relief of symptoms. Patient has been taking Robitussin for his cough since then. Per records, patient had a Chest X-Ray which revealed right mid and right lower lobe infiltrates. [facility] nursing notes report patients O2 Sat was 92% on room air. Patient denies any associated fever , chills, headache, dizziness, or lightheadedness. He denies any chest pain, diaphoresis, or palpitations. Patient is DNR. Patient reports he is feeling fine. Allergies: NKDA Past Surgical History: None reported Social History: Non smoker. No ETOH or recreational drug use. PCP: Dr. Dawson <Diana Schroeder - Last Filed: 08/05/17 02:21> - General History Source: Patient, EMS, Intermediate Records, Old Records Exam Limitations: Dementia <Cory Vitale - Last Filed: 08/05/17 03:19> - General Chief Complaint: Revisit,Radiology Variance Stated Complaint: REVISIT/RADIOLOGY Time Seen by Provider: 08/04/17 23:44 Past History <Diana Schroeder - Last Filed: 08/05/17 02:21> - Past Medical History Anemia: No Asthma: No Cancer: No Cardiac Disorders: No CVA: No COPD: No CHF: No DVT: No Dementia: No Diabetes: No GI Disorders: No Disorders: No HTN: No Hypercholesterolemia: No Liver Disease: No Seizures: No Thyroid Disease: No - Immunization History Td Vaccination: No TDAP Vaccination: No Immunization Up to Date: No - Suicide/Smoking/Psychosocial Hx Smoking History: Unknown if ever smoked Have you smoked in the past 12 months: No Information on smoking cessation initiated: No Hx Alcohol Use: No Drug/Substance Use Hx: No Substance Use Type: Alcohol Hx Substance Use Treatment: No <WinifredCory - Last Filed: 08/05/17 03:19> - Past Medical History Allergies/Adverse Reactions: Allergies Allergy/AdvReac Type Severity Reaction Status Date / Time No Known Allergies Allergy Verified 08/04/17 23:44 Home Medications: Ambulatory Orders Aspirin Coated [Ecotrin -] 81 mg PO DAILY #30 tablet.ec 07/05/17 Folic Acid 1 mg PO DAILY #30 tablet 07/05/17 Propranolol HCl 40 mg PO BID 07/12/17 Acetaminophen [Tylenol -] 650 mg PO Q4H 08/05/17 Robitussin Long-Acting Liq 5 ml PO ASDIR 08/05/17 Thiamine Mononitrate [Vitamin B-1] 100 mg PO DAILY 08/05/17 Review of Systems - Review of Systems Able to Perform ROS?: Yes Comments:: 08/05/17 01:03 GENERAL/CONSTITUTIONAL: No fever or chills. No weakness. HEAD, EYES, EARS, NOSE AND THROAT: No change in vision. No ear pain or discharge. No sore throat. CARDIOVASCULAR: No chest pain or shortness of breath. RESPIRATORY: Yes cough. No wheezing, or hemoptysis. GASTROINTESTINAL: No nausea, vomiting, diarrhea or constipation. GENITOURINARY: No dysuria, frequency, or change in urination. MUSCULOSKELETAL: No joint or muscle swelling or pain. No neck or back pain. SKIN: No rash NEUROLOGIC: No headache, vertigo, loss of consciousness, or change in strength/ sensation. ENDOCRINE: No increased thirst. No abnormal weight change. HEMATOLOGIC/LYMPHATIC: No anemia, easy bleeding, or history of blood clots. ALLERGIC/IMMUNOLOGIC: No hives or skin allergy. <Diana Schroeder - Last Filed: 08/05/17 02:21> *Physical Exam - Vital Signs Last Vital Signs Temp Pulse Resp BP Pulse Ox 99.9 F H 52 L 18 129/59 95 08/04/17 23:53 08/04/17 23:53 08/04/17 23:53 08/04/17 23:53 08/04/17 23:53 - Physical Exam Comments: 08/05/17 01:03 GENERAL: Awake, alert, and oriented x1, in no acute distress HEAD: No signs of trauma EYES: PERRLA, EOMI, sclera anicteric, conjunctiva clear ENT: Auricles normal inspection, hearing grossly normal, nares patent, oropharynx clear without exudates. Moist mucosa NECK: Normal ROM, supple, no lymphadenopathy, JVD, or masses LUNGS: Diminished breath sounds bilaterally. HEART: Regular rate and rhythm, normal S1 and S2, no murmurs, rubs or gallops ABDOMEN: Soft, nontender, normoactive bowel sounds. No guarding, no rebound. No masses EXTREMITIES: Normal range of motion, no edema. No clubbing or cyanosis. No cords, erythema, or tenderness NEUROLOGICAL: Cranial nerves II through XII grossly intact. Normal speech SKIN: Warm, Dry, normal turgor, no rashes or lesions noted. <Diana Schroeder - Last Filed: 08/05/17 02:21> - Vital Signs Last Vital Signs Temp Pulse Resp BP Pulse Ox 99.9 F H 52 L 18 129/59 95 08/04/17 23:53 08/04/17 23:53 08/04/17 23:53 08/04/17 23:53 08/04/17 23:53 <Cory Vitale - Last Filed: 08/05/17 03:19> Heart Score/ECG Review #1 ECG reviewed & interpreted by me at: 00:20 08/05/17 01:00 NSR 61, no std/ricardo, T wave flat I, avL, V5-V6, QTC 450 msec, occasional PVCs <Cory Vitale - Last Filed: 08/05/17 03:19> ED Treatment Course - LABORATORY CBC & Chemistry Diagram: 08/05/17 00:44 08/05/17 00:44 - ADDITIONAL ORDERS Additional order review: Laboratory Results 08/05/17 00:44 VBG pH 7.41 POC VBG pCO2 46.5 POC VBG pO2 24.5 L Mixed VBG HCO3 29.1 H <Diana Schroeder - Last Filed: 08/05/17 02:21> - LABORATORY CBC & Chemistry Diagram: 08/05/17 00:44 08/05/17 00:44 - RADIOLOGY Radiology Studies Ordered: Category Date Time Status CHEST X-RAY PORTABLE* [RAD] Stat Radiology 08/04/17 23:56 Ordered <Cory Vitale - Last Filed: 08/05/17 03:19> Medical Decision Making - Medical Decision Making 08/05/17 02:21 First call placed to Dr. Dawson at 02:22. Dr. De La Rosa reservoir engineering consultant. Awaiting call back. <Diana Schroeder - Last Filed: 08/05/17 02:21> - Medical Decision Making 08/05/17 00:59 A portion of this note was documented by scribe services under my direction. I have reviewed the details of the note, within reason, and agree with the documentation with the following case summary and management plan written by me. Patient treated in the ED. Nursing notes are reviewed and incorporated into the medical decision-making. Vital signs reviewed. Peripheral IV access obtained by the nurse, laboratory studies are drawn and sent, reviewed and interpreted by myself. Vital Signs Temp Pulse Resp BP Pulse Ox 99.9 F H 52 L 18 129/59 95 08/04/17 23:53 08/04/17 23:53 08/04/17 23:53 08/04/17 23:53 08/04/17 23:53 87 year old male with past medical history of atrial fibrillation, hypertension , normal pressure hydrocephalus, gout brought in by EMS from [facility] for right- sided pneumonia. The patient was recently treated in upper respiratory infection and completed course of Levaquin. However, patient continued persistent cough and had a chest x-ray today which demonstrated right-sided pneumonia. Patient denies any pain or shortness of breath. Patient was sent to the ED for further evaluation. We'll treat him as hospital-acquired pneumonia. Vancomycin and Zosyn ordered. Results as protocol initiated. We'll repeat a chest x-ray admit the patient to the hospital. 08/05/17 02:52 CBC, BMP 08/05/17 00:44 08/05/17 00:44 CMP Sodium 141 mmol/L (136-145) 08/05/17 00:44 Potassium 4.1 mmol/L (3.5-5.1) 08/05/17 00:44 Chloride 104 mmol/L (98-107) 08/05/17 00:44 Carbon Dioxide 28 mmol/L (21-32) 08/05/17 00:44 Anion Gap 9 (8-16) 08/05/17 00:44 BUN 28 mg/dL (7-18) H D 08/05/17 00:44 Creatinine 0.8 mg/dL (0.7-1.3) D 08/05/17 00:44 Creat Clearance w eGFR > 60 (>60) 08/05/17 00:44 Random Glucose 98 mg/dL (74-106) 08/05/17 00:44 Lactic Acid 1.2 mmol/L (0.4-2.0) 08/05/17 00:31 Calcium 8.3 mg/dL (8.5-10.1) L 08/05/17 00:44 Total Bilirubin 0.5 mg/dL (0.2-1.0) D 08/05/17 00:44 AST 25 U/L (15-37) D 08/05/17 00:44 ALT 42 U/L (12-78) D 08/05/17 00:44 Alkaline Phosphatase 94 U/L (45-117) 08/05/17 00:44 Creatine Kinase 33 IU/L (39-308) L 08/05/17 00:44 Troponin I < 0.02 ng/ml (0.00-0.05) D 08/05/17 00:44 Total Protein 5.9 g/dl (6.4-8.2) L 08/05/17 00:44 Albumin 2.3 g/dl (3.4-5.0) L 08/05/17 00:44 Chest xray reviewed by me, pending official radiology read. Right sided pneumonia. Will admit the patient to the hospital. 08/05/17 02:53 Dr. Dawson paged for admission at 2 am and 2:30 am. Awaiting call back. 08/05/17 03:02 paged. awaiting phone call back. 08/05/17 03:[address] Dawson. Have not heard back from Dr. Dawson's service. [facility]. I had discussed the case with Dr. Portillo. Patient admitted to med/surg admission. Case discussed in detail with admitting physician including history, physical exam and ancillary studies. Admitting physician has assumed care for the patient, will follow all pending diagnostics and will complete the evaluation and treatment. <Cory Vitale - Last Filed: 08/05/17 03:19> *DC/Admit/Observation/Transfer - Attestations Scribe Attestion: 08/05/17 01:04 Documentation prepared by Diana Schroeder, acting as medical management specialist for Cory Vitale MD. <Diana Schroeder - Last Filed: 08/05/17 02:21> - Discharge Dispostion Admit: Yes <Cory Vitale - Last Filed: 08/05/17 03:19> Diagnosis at time of Disposition: Pneumonia Qualifiers: Pneumonia type: due to unspecified organism Laterality: right Lung location: unspecified part of lung Qualified Code(s): J18.9 - Pneumonia, unspecified organism - Referrals Referrals: John Dawson MD [Primary Care Provider] - - Patient Instructions - Post Discharge Activity
[2017-08-05] MEDS ORDERED: ACETAMINOPHEN INJECTION 100 ML IVPB ONE (01:22)
[2017-08-05] MEDS ORDERED: VANCOMYCIN 1 GRAM (PRE-DOCKED) 1,000 MG/250 ML BAG IVPB ONE (01:22)
[2017-08-05 01:26] LABS: INR 1.12 (0.82-1.09); PROTHROMBIN TIME (PATIENT) 12.7 SEC (9.98-11.88)
[2017-08-05 01:28] LABS: ACTIVATED PTT 25.7 SECONDS (26.9-34.4)
[2017-08-05 01:35] LABS: ALBUMIN 2.3 g/dl (3.4-5.0); ANION GAP 9 (8-16); BILIRUBIN,TOTAL 0.5 mg/dL (0.2-1.0); BLOOD UREA NITROGEN 28 mg/dL (7-18); CALCIUM 8.3 mg/dL (8.5-10.1); CHLORIDE 104 mmol/L (98-107); CO2 28 mmol/L (21-32); CREATININE 0.8 mg/dL (0.7-1.3); GLUCOSE,RANDOM 98 mg/dL (74-106); POTASSIUM 4.1 mmol/L (3.5-5.1); SGOT/AST 25 U/L (15-37); SGPT/ALT 42 U/L (12-78); SODIUM 141 mmol/L (136-145); TOT PROT 5.9 g/dl (6.4-8.2)
[2017-08-05 01:38] LABS: ALK PHOS 94 U/L (45-117)
[2017-08-05] MEDS ORDERED: HEMOQUE TEST 1 EACH EACH ONE (02:48)
--- NOTE | 2017-08-05 03:57 | HP ---
CHIEF COMPLAINT: Pneumonia PCP: none-admitted to [facility] 07/12/17Debi paged by ED, no response x 3, hospitalist admitting HISTORY OF PRESENT ILLNESS: This is an 87 year old male with a past medical history of Afib and RUL lung mass presented to the ED from his longterm with pneumonia. Pt was treated with po levaquin x 7 days. He remains with a persistent cough and was sent to the ED for admission. Upon exam pt denies pain, SOB, discomfort. States he is feeling "ok". ER course was notable for: (1) CXR with RML, RLL infiltrates (2) WBC 8.2, lactic acid 1.2 Recent Travel: none PAST MEDICAL HISTORY: afib RUL lung mass--pt refused workup in past PAST SURGICAL HISTORY: unk Social History: Smoking: unknown Alcohol: previous Drugs: unknown Family History: unknonwn-pt unable to answer Allergies No Known Allergies Allergy (Verified 08/04/17 23:44) HOME MEDICATIONS: 3 Medication Instructions Recorded Aspirin Coated [Ecotrin -] 81 mg PO DAILY #30 tablet.ec 07/05/17 Folic Acid 1 mg PO DAILY #30 tablet 07/05/17 Propranolol HCl 40 mg PO BID 07/12/17 Acetaminophen [Tylenol -] 650 mg PO Q4H 08/05/17 Robitussin Long-Acting Liq 5 ml PO ASDIR 08/05/17 Thiamine Mononitrate [Vitamin B-1] 100 mg PO DAILY 08/05/17 REVIEW OF SYSTEMS CONSTITUTIONAL: Absent: fever, chills, diaphoresis, generalized weakness, malaise, loss of appetite, weight change HEENT: Absent: rhinorrhea, nasal congestion, throat pain, throat swelling, difficulty swallowing, mouth swelling, ear pain, eye pain, visual changes CARDIOVASCULAR: Absent: chest pain, syncope, palpitations, irregular heart rate, lightheadedness , peripheral edema RESPIRATORY: Present: cough Absent: shortness of breath, dyspnea with exertion, orthopnea, wheezing, stridor , hemoptysis GASTROINTESTINAL: Absent: abdominal pain, abdominal distension, nausea, vomiting, diarrhea, constipation, melena, hematochezia GENITOURINARY: Absent: dysuria, frequency, urgency, hesitancy, hematuria, flank pain, genital pain MUSCULOSKELETAL: Absent: myalgia, arthralgia, joint swelling, back pain, neck pain SKIN: Absent: rash, itching, pallor HEMATOLOGIC/IMMUNOLOGIC: Absent: easy bleeding, easy bruising, lymphadenopathy, frequent infections ENDOCRINE: Absent: unexplained weight gain, unexplained weight loss, heat intolerance, cold intolerance NEUROLOGIC: Absent: headache, focal weakness or paresthesias, dizziness, unsteady gait, seizure, mental status changes, bladder or bowel incontinence PSYCHIATRIC: Absent: anxiety, depression, suicidal or homicidal ideation, hallucinations. PHYSICAL EXAMINATION Vital Signs - 24 hr 3 08/04/17 23:53 Temperature 99.9 F H Pulse Rate 52 L Respiratory 18 Rate Blood Pressure 129/59 O2 Sat by Pulse 95 Oximetry (%) GENERAL: Awake, alert, and oriented to person only, states it is 1976, doesn't know he is in hospital, in no acute distress. + cachexia HEAD: Normal with no signs of trauma. EYES: Pupils equal, round and reactive to light, extraocular movements intact, sclera anicteric, conjunctiva clear. No lid lag. EARS, NOSE, THROAT: Ears normal, nares patent, oropharynx clear without exudates. Moist mucous membranes. NECK: Normal range of motion, supple without lymphadenopathy, JVD, or masses. LUNGS: Breath sounds diminished right lung calderon. No wheezes, and no crackles. No accessory muscle use. HEART: Regular rate and rhythm, normal S1 and S2 without murmur, rub or gallop. ABDOMEN: Soft, nontender, not distended, normoactive bowel sounds, no guarding, no rebound, no masses. No hepatomegaly or splenomegaly. MUSCULOSKELETAL: Normal range of motion at all joints. No bony deformities or tenderness. No CVA tenderness. UPPER EXTREMITIES: 2+ pulses, warm, well-perfused. No cyanosis. No clubbing. No peripheral edema. LOWER EXTREMITIES: 2+ pulses, warm, well-perfused. No calf tenderness. No peripheral edema. NEUROLOGICAL: Cranial nerves II-XII intact. Normal speech. Normal gait. PSYCHIATRIC: Cooperative. Good eye contact. Appropriate mood and affect. SKIN: Warm, dry, normal turgor, no rashes or lesions noted, normal capillary refill. Laboratory Results - last 24 hr 3 08/05/17 08/05/17 08/05/17 00:31 00:44 00:44 WBC 8.2 RBC 3.97 L Hgb 10.8 L D Hct 33.4 L D MCV 84.2 MCH 27.1 MCHC 32.2 RDW 17.1 H D Plt Count 288 MPV 7.9 Neutrophils % 67.2 Lymphocytes % 21.6 D Monocytes % 8.0 Eosinophils % 2.5 D Basophils % 0.7 PT with INR 12.70 H INR 1.12 PTT (Actin FS) 25.7 L VBG pH POC VBG pCO2 POC VBG pO2 Mixed VBG HCO3 Sodium Potassium Chloride Carbon Dioxide Anion Gap BUN Creatinine Creat Clearance w eGFR Random Glucose Lactic Acid 1.2 Calcium Total Bilirubin AST ALT Alkaline Phosphatase Creatine Kinase Troponin I Total Protein Albumin Blood Type Antibody Screen 3 08/05/17 08/05/17 08/05/17 00:44 00:44 00:44 WBC RBC Hgb Hct MCV MCH MCHC RDW Plt Count MPV Neutrophils % Lymphocytes % Monocytes % Eosinophils % Basophils % PT with INR INR PTT (Actin FS) VBG pH 7.41 POC VBG pCO2 46.5 POC VBG pO2 24.5 L Mixed VBG HCO3 29.1 H Sodium 141 Potassium 4.1 Chloride 104 Carbon Dioxide 28 Anion Gap 9 BUN 28 H D Creatinine 0.8 D Creat Clearance w eGFR > 60 Random Glucose 98 Lactic Acid Calcium 8.3 L Total Bilirubin 0.5 D AST 25 D ALT 42 D Alkaline Phosphatase 94 Creatine Kinase 33 L Troponin I < 0.02 D Total Protein 5.9 L Albumin 2.3 L Blood Type O POSITIVE Antibody Screen Negative ECG sinus rhythm with occasional PVCs vent rate 61 QTC 450 ASSESSMENT/PLAN: 87yM with PMH RUL mass, afib presented to the ED from longterm with pneumonia. Pneumonia with AMS and hypovolemia - change treatment to zosyn/vanc - ID consult - consider CT chest - NS @ 75cc/hr x 1 liter then reassess Afib - in sinus rhythm on ECG - cont propranolol DVT PPX - heparin 5000u BID FEN - NS @ 75cc/hr x 1 liter then reassess - BMP in am - regular diet as tolerated Dispo: Pt currently requires inpatient management of his emergent condition. Visit type - Emergency Visit Emergency Visit: Yes ED Registration Date: 08/04/17 Care time: The patient presented to the Emergency Department on the above date and was hospitalized for further evaluation of their emergent condition. - New Patient This patient is new to me today: Yes Date on this admission: 08/05/17 - Critical Care Critical Care patient: No
[2017-08-05] MEDS ORDERED: [UNRECOGNIZED DRUG - OTHER] PO SCH (04:15)
[2017-08-05] MEDS ORDERED: ACETAMINOPHEN 325 MG TABLET (FP) PO SCH (04:15)
[2017-08-05] MEDS ORDERED: PIPERACILLIN/TAZOB 3.375 GM 3.375 GM in DEXTROSE 5%-WATER - 50 ML IVPB ONE (05:00)
[2017-08-05] MEDS ORDERED: ACETAMINOPHEN 325 MG TABLET (FP) PO PRN (05:09)
[2017-08-05 07:46] LABS: BASO % 0.5 % (0-2.0); EOS % 2.7 % (0-4.5); HEMATOCRIT 29.6 % (35.4-49); HEMOGLOBIN 9.5 GM/dL (11.7-16.9); LYMPH % 24.1 % (8-40); MCH 26.9 pg (25.7-33.7); MEAN PLT VOLUME 7.9 fl (7.5-11.1); MONO % 8.4 % (3.8-10.2); NEUT % 64.3 % (42.8-82.8); PLATELET COUNT 242 K/MM3 (134-434); RBC 3.53 M/mm3 (4.00-5.60); RDW 17.2 % (11.9-15.9); WHITE BLOOD COUNT 7.7 K/mm3 (4.0-10.0)
[2017-08-05 08:31] LABS: ANION GAP 7 (8-16); BLOOD UREA NITROGEN 25 mg/dL (7-18); CALCIUM 7.7 mg/dL (8.5-10.1); CHLORIDE 103 mmol/L (98-107); CO2 28 mmol/L (21-32); GLUCOSE,RANDOM 89 mg/dL (74-106); POTASSIUM 3.9 mmol/L (3.5-5.1); SODIUM 138 mmol/L (136-145)
[2017-08-05 08:33] LABS: CREATININE 0.7 mg/dL (0.7-1.3); MAGNESIUM 2.4 mg/dL (1.8-2.4); PHOSPHOROUS 3.1 mg/dL (2.5-4.9)
[2017-08-05] MEDS: THIAMINE HCL 100 MG TABLET (FP) PO SCH (10:05)
[2017-08-05] MEDS: HEPARIN NA (PORCINE) 5,000 UNITS/ML 1ML VIAL SQ SCH ×2 (10:05→21:42)
[2017-08-05] MEDS: FOLIC ACID 1 MG TABLET (FP) PO SCH (10:05)
[2017-08-05] MEDS: ASPIRIN COATED 81 MG TABLET.EC PO SCH (10:05)
--- NOTE | 2017-08-05 10:41 | PN ---
Progress Note (short form) - Note Progress Note: ID Consult dictated HCAP RLL ? 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
--- NOTE | 2017-08-05 12:02 | PN ---
Progress Note, Physician History of Present Illness: AWAKE NAD - Current Medication List Current Medications: Active Medications Acetaminophen (Tylenol -) 650 mg PO Q6H PRN PRN Reason: PAIN OR FEVER Aspirin (Ecotrin -) 81 mg PO DAILY [facility] Last Admin: 08/05/17 10:05 Dose: 81 mg Folic Acid (Folic Acid -) 1 mg PO DAILY [facility] Last Admin: 08/05/17 10:05 Dose: 1 mg Heparin Sodium (Porcine) (Heparin -) 5,000 unit SQ BID [facility] Last Admin: 08/05/17 10:05 Dose: 5,000 unit Piperacillin Sod/Tazobactam (Sod 3.375 gm/ Dextrose) 100 mls @ 200 mls/hr IVPB Q8H-IV KAREN PRN Reason: Protocol Non-Formulary Medication (Robitussin Long-Acting Liq) 5 ml PO ASDIR KAREN Propranolol HCl (Inderal -) 40 mg PO BID KAREN Thiamine HCl (Vitamin B1 -) 100 mg PO DAILY [facility] Last Admin: 08/05/17 10:05 Dose: 100 mg - Objective Vital Signs: Vital Signs Temperature 98.0 F 08/05/17 09:00 Pulse Rate 68 08/05/17 09:00 Respiratory Rate 18 08/05/17 09:00 Blood Pressure 133/60 08/05/17 09:00 O2 Sat by Pulse Oximetry (%) 93 L 08/05/17 09:00 Cardiovascular: Yes: S1, S2 Respiratory: Yes: Rales Gastrointestinal: Yes: Normal Bowel Sounds, Soft Edema: No Labs: CBC, BMP 08/05/17 07:25 08/05/17 07:25 INR, PTT INR 1.12 (0.82-1.09) 08/05/17 00:44 Problem List - Problems (1) Pneumonia Assessment/Plan: IV ABX ID CONSULT NOTED CT OF CHEST Code(s): J18.9 - PNEUMONIA, UNSPECIFIED ORGANISM Qualifiers: Pneumonia type: due to unspecified organism Laterality: right Lung location: unspecified part of lung Qualified Code(s): J18.9 - Pneumonia, unspecified organism (2) Lung mass Assessment/Plan: CT OF CHEST Code(s): R91.8 - OTHER NONSPECIFIC ABNORMAL FINDING OF LUNG FIELD
[2017-08-05] MEDS ORDERED: GUAIFENESIN 100 MG/5 ML PO PRN (12:40)
[2017-08-05] MEDS ORDERED: guaiFENesin 200 MG/10 ML 10 ML UNIT-DOSE CUPS PO PRN (13:22)
[2017-08-05] MEDS ORDERED: PT OWN MED DRAWER 7, Y5N ONE (16:28)
[2017-08-05] MEDS: PIPERACILLIN/TAZOB 3.375 GM 3.375 GM in DEXTROSE 5%-WATER - 100 ML IVPB SCH (17:37)
[2017-08-06] MEDS: guaiFENesin 200 MG/10 ML 10 ML UNIT-DOSE CUPS PO PRN (00:24)
[2017-08-06] MEDS: PIPERACILLIN/TAZOB 3.375 GM 3.375 GM in DEXTROSE 5%-WATER - 100 ML IVPB SCH ×3 (01:38→17:16)
[2017-08-06] MEDS: ASPIRIN COATED 81 MG TABLET.EC PO SCH (09:01)
[2017-08-06] MEDS: HEPARIN NA (PORCINE) 5,000 UNITS/ML 1ML VIAL SQ SCH ×2 (09:01→21:32)
[2017-08-06] MEDS: FOLIC ACID 1 MG TABLET (FP) PO SCH (09:01)
[2017-08-06] MEDS: THIAMINE HCL 100 MG TABLET (FP) PO SCH (09:01)
--- NOTE | 2017-08-06 10:46 | PN ---
Progress Note, Physician History of Present Illness: Awake,confused Breathing non-labored Afebrile WBC WNL BC (-) CT (unofficial) shows R pleural effusion, R lung mass - Current Medication List Current Medications: Active Medications Acetaminophen (Tylenol -) 650 mg PO Q6H PRN PRN Reason: PAIN OR FEVER Aspirin (Ecotrin -) 81 mg PO DAILY [facility] Last Admin: 08/06/17 09:01 Dose: 81 mg Folic Acid (Folic Acid -) 1 mg PO DAILY [facility] Last Admin: 08/06/17 09:01 Dose: 1 mg Guaifenesin (Robitussin -) 5 ml PO Q6H PRN Last Admin: 08/06/17 00:24 Dose: 5 ml Heparin Sodium (Porcine) (Heparin -) 5,000 unit SQ BID [facility] Last Admin: 08/06/17 09:01 Dose: 5,000 unit Piperacillin Sod/Tazobactam (Sod 3.375 gm/ Dextrose) 100 mls @ 200 mls/hr IVPB Q8H-IV KAREN PRN Reason: Protocol Last Admin: 08/06/17 09:01 Dose: 200 mls/hr Propranolol HCl (Inderal -) 40 mg PO BID [facility] Last Admin: 08/06/17 09:02 Dose: Not Given Thiamine HCl (Vitamin B1 -) 100 mg PO DAILY [facility] Last Admin: 08/06/17 09:01 Dose: 100 mg - Objective Vital Signs: Vital Signs Temperature 98.4 F 08/06/17 08:58 Pulse Rate 52 L 08/06/17 08:58 Respiratory Rate 20 08/06/17 09:00 Blood Pressure 120/52 08/06/17 08:58 O2 Sat by Pulse Oximetry (%) 94 L 08/06/17 09:00 Constitutional: Yes: No Distress Eyes: Yes: Conjunctiva Clear, Other (+ ectropion o.s.) Cardiovascular: Yes: Regular Rate and Rhythm, S1, S2 Respiratory: Yes: Diminished Gastrointestinal: Yes: Normal Bowel Sounds, Soft. No: Tenderness Labs: CBC, BMP 08/05/17 07:25 08/05/17 07:25 INR, PTT INR 1.12 (0.82-1.09) 08/05/17 00:44 Assessment/Plan Pneumonia R pleural effusion R lung mass Await cultures, CT reading Continue Jamia
--- NOTE | 2017-08-06 13:30 | PN ---
Progress Note, Physician History of Present Illness: AWAKE NAD - Current Medication List Current Medications: Active Medications Acetaminophen (Tylenol -) 650 mg PO Q6H PRN PRN Reason: PAIN OR FEVER Aspirin (Ecotrin -) 81 mg PO DAILY [facility] Last Admin: 08/06/17 09:01 Dose: 81 mg Folic Acid (Folic Acid -) 1 mg PO DAILY [facility] Last Admin: 08/06/17 09:01 Dose: 1 mg Guaifenesin (Robitussin -) 5 ml PO Q6H PRN Last Admin: 08/06/17 00:24 Dose: 5 ml Heparin Sodium (Porcine) (Heparin -) 5,000 unit SQ BID [facility] Last Admin: 08/06/17 09:01 Dose: 5,000 unit Piperacillin Sod/Tazobactam (Sod 3.375 gm/ Dextrose) 100 mls @ 200 mls/hr IVPB Q8H-IV KAREN PRN Reason: Protocol Last Admin: 08/06/17 09:01 Dose: 200 mls/hr Propranolol HCl (Inderal -) 40 mg PO BID [facility] Last Admin: 08/06/17 09:02 Dose: Not Given Thiamine HCl (Vitamin B1 -) 100 mg PO DAILY [facility] Last Admin: 08/06/17 09:01 Dose: 100 mg - Objective Vital Signs: Vital Signs Temperature 98.4 F 08/06/17 08:58 Pulse Rate 52 L 08/06/17 08:58 Respiratory Rate 20 08/06/17 09:00 Blood Pressure 120/52 08/06/17 08:58 O2 Sat by Pulse Oximetry (%) 94 L 08/06/17 09:00 Cardiovascular: Yes: S1, S2 Respiratory: Yes: Rales Gastrointestinal: Yes: Normal Bowel Sounds, Soft Labs: CBC, BMP 08/05/17 07:25 08/05/17 07:25 INR, PTT INR 1.12 (0.82-1.09) 08/05/17 00:44 Problem List - Problems (1) Pneumonia Assessment/Plan: IV ABX ID CONSULT NOTED CT OF CHEST 0BSTUCTIVE PNEUMONIA Code(s): J18.9 - PNEUMONIA, UNSPECIFIED ORGANISM Qualifiers: Pneumonia type: due to unspecified organism Laterality: right Lung location: unspecified part of lung Qualified Code(s): J18.9 - Pneumonia, unspecified organism (2) Lung mass Assessment/Plan: CT OF CHEST NOTED PULM CONSULT Code(s): R91.8 - OTHER NONSPECIFIC ABNORMAL FINDING OF LUNG FIELD
[2017-08-06] MEDS ORDERED: PT OWN MED DRAWER 7, Y5N ONE ×2 (14:31→16:04)
--- NOTE | 2017-08-06 14:35 | CON.PULM ---
Consult Consult Specialty:: PULMONARY Referred by:: BORA Reason for Consultation:: LUNG MASS/PLEURAL EFFUSION - History of Present Illness Chief Complaint: SOB/COUGH History of Present Illness: 87yo male without significant past medical history who was admitted previously to [facility] after being found on the floor with several bottles of alcohol. Found to be in rapid afib, started on cardizem gtt and transferred to telemetry. During that admission work up, CT chest was done showing a 4.5cm RUL mass. Prior imaging done in February 2016 as outpt showed a 2.7cm nodule at that time. Pt is a poor historian but denies fevers, chills or night sweats. He does endorse unintentional weight loss. He is a former smoker. Does not know of any cancer in family. Admitted now with large effusion on right/multiple lung nodules and large right upper lobe mass with adenopathy. - History Source History Provided By: Patient, Medical Record Limitations to Obtaining History: Clinical Condition - Past Medical History BUS BOY: Yes: Dementia Cardio/Vascular: Yes: AFIB Pulmonary: Yes: Other (r lung mass) - Alcohol/Substance Use Hx Alcohol Use: No - Smoking History Smoking history: Unknown if ever smoked Have you smoked in the past 12 months: No - Social History Usual Living Arrangement: Group Home Home Medications - Allergies Allergies/Adverse Reactions: Allergies Allergy/AdvReac Type Severity Reaction Status Date / Time No Known Allergies Allergy Verified 08/04/17 23:44 - Home Medications Home Medications: Ambulatory Orders Aspirin Coated [Ecotrin -] 81 mg PO DAILY #30 tablet.ec 07/05/17 Folic Acid 1 mg PO DAILY #30 tablet 07/05/17 Propranolol HCl 40 mg PO BID 07/12/17 Acetaminophen [Tylenol -] 650 mg PO Q4H 08/05/17 Robitussin Long-Acting Liq 5 ml PO ASDIR 08/05/17 Thiamine Mononitrate [Vitamin B-1] 100 mg PO DAILY 08/05/17 Family Disease History - Family Disease History Family History: Unable to Obtain Review of Systems Unable to obtain ROS, reason: poor informant Physical Exam Vital Sings: Vital Signs Temperature 97.4 F L 08/06/17 12:00 Pulse Rate 53 L 08/06/17 12:00 Respiratory Rate 20 08/06/17 12:00 Blood Pressure 136/57 08/06/17 12:00 O2 Sat by Pulse Oximetry (%) 94 L 08/06/17 09:00 Constitutional: Yes: Calm, Thin Eyes: Yes: EOM Intact HENT: Yes: Normocephalic Neck: Yes: Supple Cardiovascular: Yes: Regular Rate and Rhythm, Tachycardia, S1, S2 Respiratory: Yes: Diminished Gastrointestinal: Yes: Normal Bowel Sounds Edema: No Labs: CBC, BMP 08/05/17 07:25 08/05/17 07:25 Imaging - Results Chest X-ray: Report Reviewed, Image Reviewed Cat Scan: Report Reviewed, Image Reviewed Problem List - Problems (1) Pleural effusion Code(s): J90 - PLEURAL EFFUSION, NOT ELSEWHERE CLASSIFIED (2) Atrial fibrillation with rapid ventricular response Code(s): I48.91 - UNSPECIFIED ATRIAL FIBRILLATION (3) Dementia Code(s): F03.90 - UNSPECIFIED DEMENTIA WITHOUT BEHAVIORAL DISTURBANCE (4) Lung mass Code(s): R91.8 - OTHER NONSPECIFIC ABNORMAL FINDING OF LUNG FIELD Assessment/Plan 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 WILL NEED CONSENT CONTINUE O2/ANTIBIOTICS/ WILL FOLLOW Tee ZHU MD
--- NOTE | 2017-08-06 14:43 | CONS ---
DATE OF CONSULTATION: 08/05/2017 An 87-year-old male evaluated for pneumonia. History was obtained from the chart as he cannot give a history secondary to dementia. The patient is a resident of a [facility] facility. At the facility, he was noted to have worsening cough over the past 1-2 weeks. He received a 1-week course of Levaquin for possible pneumonia, ending on July 26. He continued to have cough and shortness of breath. He was sent to the emergency room where chest x-ray showed a right-sided infiltrate. Of note, the patient has a known right lung mass which was documented on a CAT scan done in June. Apparently, patient had refused further workup. He was noted to have persistent cough with difficulty mobilizing secretions. There were reports of high-grade fever with shaking chills. PAST MEDICAL HISTORY: Positive for atrial fibrillation, pulmonary hypertension, dementia, gout, right lung mass. No known allergies. MEDICATIONS: Aspirin, folic acid, propranolol. SOCIAL HISTORY: He is a care home resident, dependent in activities of daily living. No active tobacco or alcohol use. SYSTEMS REVIEW: Neurologic: Positive for dementia. Cardiac: Positive for atrial fibrillation. Respiratory: As per HPI. Gastrointestinal: Negative vomiting or diarrhea. Genitourinary: Negative for urinary tract infection. LABORATORY DATA: White count 7.7, hematocrit 29.6, platelet count 242. BUN 25, creatinine 0.7. Liver enzymes normal. Blood cultures pending. PHYSICAL EXAMINATION:General: He is awake and alert, no acute distress. Breathing is nonlabored. Vital Signs: Temperature 98.0, T-max 99.9. Blood pressure 133/60. Pulse 68 and regular. Respirations 16 per minute. HEENT: Sclerae anicteric. Positive ectropion, left eye. Dry mucous membranes. Heart Sounds: S1, S2. Lungs: Grossly clear. Poor inspiratory effort. Abdomen: Soft. No tenderness elicited. No mass, rebound or rigidity. Extremities: Negative for edema. IMPRESSION: 1. Healthcare-associated pneumonia. 2. Possible postobstructive pneumonia secondary to known lung mass. 3. 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 4. Dementia. Await culture results. Obtain sputum culture and sensitivity, urine Legionella and pneumococcal antigens. Empiric antibiotic coverage with Zosyn. Further recommendations pending cultures. Will follow. Thank you for the kind referral. HEMANT ELENA M.D. ASH/[id number]
[2017-08-07] MEDS ORDERED: PT OWN MED DRAWER 7, Y5N ONE (01:22)
[2017-08-07] MEDS: PIPERACILLIN/TAZOB 3.375 GM 3.375 GM in DEXTROSE 5%-WATER - 100 ML IVPB SCH (03:13)
--- NOTE | 2017-08-07 08:47 | PN ---
Progress Note, Physician History of Present Illness: AWAKE NAD C/O COUGH - Current Medication List Current Medications: Active Medications Acetaminophen (Tylenol -) 650 mg PO Q6H PRN PRN Reason: PAIN OR FEVER Aspirin (Ecotrin -) 81 mg PO DAILY [facility] Last Admin: 08/06/17 09:01 Dose: 81 mg Folic Acid (Folic Acid -) 1 mg PO DAILY [facility] Last Admin: 08/06/17 09:01 Dose: 1 mg Guaifenesin (Robitussin -) 5 ml PO Q6H PRN Last Admin: 08/06/17 00:24 Dose: 5 ml Heparin Sodium (Porcine) (Heparin -) 5,000 unit SQ BID [facility] Last Admin: 08/06/17 21:32 Dose: 5,000 unit Piperacillin Sod/Tazobactam (Sod 3.375 gm/ Dextrose) 100 mls @ 200 mls/hr IVPB Q8H-IV KAREN PRN Reason: Protocol Last Admin: 08/07/17 03:13 Dose: 200 mls/hr Propranolol HCl (Inderal -) 40 mg PO BID [facility] Last Admin: 08/06/17 21:31 Dose: Not Given Thiamine HCl (Vitamin B1 -) 100 mg PO DAILY [facility] Last Admin: 08/06/17 09:01 Dose: 100 mg - Objective Vital Signs: Vital Signs Temperature 98.0 F 08/07/17 06:00 Pulse Rate 69 08/07/17 06:00 Respiratory Rate 22 08/07/17 06:00 Blood Pressure 144/79 08/07/17 06:00 O2 Sat by Pulse Oximetry (%) 97 08/06/17 21:00 Cardiovascular: Yes: S1, S2 Respiratory: Yes: Diminished, Rhonchi Gastrointestinal: Yes: Normal Bowel Sounds, Soft Edema: No Labs: CBC, BMP 08/05/17 07:25 08/05/17 07:25 INR, PTT INR 1.12 (0.82-1.09) 08/05/17 00:44 Problem List - Problems (1) Pneumonia Assessment/Plan: IV ABX ID CONSULT NOTED CT OF CHEST 0BSTUCTIVE PNEUMONIA Code(s): J18.9 - PNEUMONIA, UNSPECIFIED ORGANISM Qualifiers: Pneumonia type: due to unspecified organism Laterality: right Lung location: unspecified part of lung Qualified Code(s): J18.9 - Pneumonia, unspecified organism (2) Lung mass Assessment/Plan: CT OF CHEST NOTED PULM CONSULT NOTED AND APPRECIATED PT HAS REFUSED WORK UP OF MASS Code(s): R91.8 - OTHER NONSPECIFIC ABNORMAL FINDING OF LUNG FIELD
--- NOTE | 2017-08-07 09:20 | PN ---
Physical Exam: SUBJECTIVE: 87 y/o M with PMH afib, pulm HTN, lung mass, dementia, recent admission where pt found on floor with bottle of alcohol, who was sent to the ED from [facility] for evaluation of cough x 2 weeks. As per [facility], pt had productive cough and completed 1 week course of Levaquin 10 days prior. At time of admission, pt denied headache, fever, chills, chest pain, N/V/D. While in ED, pt had "low temp" 99.9F, without white count, lactic acid level WNL. Pt was found to have RML and RLL infiltrates on CXR however, and after admittance, CT showed R large effusion and large R upper lobe mass with adenopathy. ID team consulted for pneumonia (HCAP). OBJECTIVE: Vital Signs Period Temp Pulse Resp BP Sys/Cosby Pulse Ox Last 24 Hr 97.4 F-98.7 F 53-69 20-22 130-144/51-79 97 GENERAL: The patient is cachectic. AAOx1 (to self), intermittent productive cough. Sat 94% on 2L 02 NC HEAD: Normal with no signs of trauma. EYES: PERRL, extraocular movements intact, mild scleral injection ENT: erythematous oropharynx without exudates NECK: Trachea midline, supple. LUNGS: rhonchi appreciated b/l, especially in RUL. Crackles appreciated b/l in bases. R posterior field -dull to percussion HEART: Regular rate and rhythm, S1, S2 without murmur, rub or gallop. ABDOMEN: Soft, nontender, nondistended, normoactive bowel sounds, no guarding, no rebound EXTREMITIES: 1+ posterior tibial pulses, warm, no edema noted. NEUROLOGICAL: Cranial nerves II through XII grossly intact. Pt AAO x 1 to self only. PSYCH: Positive mood Active Medications Generic Name Dose Route Start Last Admin Trade Name Freq PRN Reason Stop Dose Admin Acetaminophen 650 mg 08/05/17 05:09 Tylenol - PO Q6H PRN PAIN OR FEVER Albuterol/Ipratropium 1 amp 08/07/17 12:00 Duoneb - NEB QIDR KAREN Aspirin 81 mg 08/05/17 10:00 08/06/17 09:01 Ecotrin - PO 81 mg DAILY KAREN Administration Folic Acid 1 mg 08/05/17 10:00 08/06/17 09:01 Folic Acid - PO 1 mg DAILY KAREN Administration Guaifenesin 5 ml 08/05/17 13:25 08/06/17 00:24 Robitussin - PO 5 ml Q6H PRN Administration Heparin Sodium (Porcine) 5,000 unit 08/05/17 10:00 08/06/17 21:32 Heparin - SQ 5,000 unit BID KAREN Administration Piperacillin Sod/Tazobactam 100 mls @ 200 mls/hr 08/05/17 18:00 08/07/17 03: 13 Sod 3.375 gm/ Dextrose IVPB 200 mls/hr Q8H-IV KAREN Administration Protocol Propranolol HCl 40 mg 08/05/17 10:00 08/06/17 21:31 Inderal - PO Not Given BID KAREN Thiamine HCl 100 mg 08/05/17 10:00 08/06/17 09:01 Vitamin B1 - PO 100 mg DAILY KAREN Administration Laboratory Tests 08/05/17 08/05/17 07:25 07:25 WBC 7.7 Hgb 9.5 L D Hct 29.6 L Plt Count 242 BUN 25 H Creatinine 0.7 Microbiology 08/06/17 10:57 Urine For Antigen Detection Legionella Antigen - Final 08/06/17 10:57 Urine For Antigen Detection Streptococcus pneumoniae Antigen (M - Final 08/05/17 00:31 Blood - Peripheral Venous Blood Culture - Preliminary NO GROWTH OBTAINED AFTER 48 HOURS, INCUBATION TO CONTINUE FOR 3 DAYS. 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
--- NOTE | 2017-08-07 09:48 | PN ---
Progress Note (short form) - Note Progress Note: ID Case reviewed with housestaff I feel patient has malignant pleural effusion with a ling mass with minimal if any pneumonia. Selected Entries 08/05/17 08/07/17 05:09 06:00 Temperature 98.6 F 98.0 F Pulse Rate 56 L 69 Respiratory 22 Rate Blood Pressure 133/72 144/79 Dullness to percussion right chest Cor S1 S2 Abd Soft nontender Microbiology 08/06/17 10:57 Urine For Antigen Detection Legionella Antigen - Final 08/06/17 10:57 Urine For Antigen Detection Streptococcus pneumoniae Antigen (M - Final 08/05/17 00:31 Blood - Peripheral Venous Blood Culture - Preliminary NO GROWTH OBTAINED AFTER 48 HOURS, INCUBATION TO CONTINUE FOR 3 DAYS. 08/05/17 00:30 Blood - Peripheral Venous Blood Culture - Preliminary NO GROWTH OBTAINED AFTER 48 HOURS, INCUBATION TO CONTINUE FOR 3 DAYS. Laboratory Tests 08/05/17 08/05/17 07:25 07:25 WBC 7.7 RBC 3.53 L Hct 29.6 L Plt Count 242 BUN 25 H Creatinine 0.7 Assessment Lung CA with malignant pleural effusions Couph secondary to same Plan STOP ZOSYN Chest tube drainage Pleurex
[2017-08-07] MEDS: HEPARIN NA (PORCINE) 5,000 UNITS/ML 1ML VIAL SQ SCH ×3 (10:40→22:06)
[2017-08-07] MEDS: ASPIRIN COATED 81 MG TABLET.EC PO SCH (10:41)
[2017-08-07] MEDS: FOLIC ACID 1 MG TABLET (FP) PO SCH (10:41)
[2017-08-07] MEDS: THIAMINE HCL 100 MG TABLET (FP) PO SCH (10:41)
[2017-08-07] MEDS: ALBUTEROL SO4 2.5/IPRATROPIUM 0.5 INH SOL 3 ML VIAL.NEB. NEB SCH ×2 (11:37→17:15)
--- NOTE | 2017-08-07 13:16 | PN ---
Progress Note, Physician History of Present Illness: PULMONARY ALERT,NAD,MILDLY DYSPNEIC WITH EXERTION - Current Medication List Current Medications: Active Medications Acetaminophen (Tylenol -) 650 mg PO Q6H PRN PRN Reason: PAIN OR FEVER Albuterol/Ipratropium (Duoneb -) 1 amp NEB QIDR [facility] Last Admin: 08/07/17 11:37 Dose: 1 amp Aspirin (Ecotrin -) 81 mg PO DAILY [facility] Last Admin: 08/07/17 10:41 Dose: 81 mg Folic Acid (Folic Acid -) 1 mg PO DAILY [facility] Last Admin: 08/07/17 10:41 Dose: 1 mg Guaifenesin (Robitussin -) 5 ml PO Q6H PRN Last Admin: 08/06/17 00:24 Dose: 5 ml Heparin Sodium (Porcine) (Heparin -) 5,000 unit SQ BID [facility] Last Admin: 08/07/17 10:40 Dose: 5,000 unit Propranolol HCl (Inderal -) 40 mg PO BID [facility] Last Admin: 08/07/17 10:41 Dose: 40 mg Thiamine HCl (Vitamin B1 -) 100 mg PO DAILY [facility] Last Admin: 08/07/17 10:41 Dose: 100 mg - Objective Vital Signs: Vital Signs Temperature 97.4 F L 08/07/17 10:00 Pulse Rate 62 08/07/17 10:00 Respiratory Rate 22 08/07/17 10:00 Blood Pressure 148/67 08/07/17 10:00 O2 Sat by Pulse Oximetry (%) 97 08/06/17 21:00 Constitutional: Yes: Calm, Thin Eyes: Yes: WNL HENT: Yes: WNL Neck: Yes: WNL Cardiovascular: Yes: Pulse Irregular, S1, S2 Respiratory: Yes: Diminished (DIMINISHED BS ON R BASE) Gastrointestinal: Yes: Normal Bowel Sounds, Soft Extremities: Yes: WNL Edema: No Labs: CBC, BMP 08/05/17 07:25 08/05/17 07:25 INR, PTT INR 1.12 (0.82-1.09) 08/05/17 00:44 Assessment/Plan Problem List - Problems (1) Pleural effusion Code(s): J90 - PLEURAL EFFUSION, NOT ELSEWHERE CLASSIFIED (2) Atrial fibrillation with rapid ventricular response Code(s): I48.91 - UNSPECIFIED ATRIAL FIBRILLATION (3) Dementia Code(s): F03.90 - UNSPECIFIED DEMENTIA WITHOUT BEHAVIORAL DISTURBANCE (4) Lung mass Code(s): R91.8 - OTHER NONSPECIFIC ABNORMAL FINDING OF LUNG FIELD Assessment/Plan ADVANCED LUNG CANCER PLEURAL EFFUSION LIKELY MALIGNANT DEMENTIA AFIB PLAN THORACENTESIS O2 CONSERVATIVE MANAGEMENT SECONDARY TO PTS POOR PERFORMANCE STATUS DR BELL
[2017-08-08] MEDS: ALBUTEROL SO4 2.5/IPRATROPIUM 0.5 INH SOL 3 ML VIAL.NEB. NEB SCH ×5 (00:26→23:16)
--- NOTE | 2017-08-08 01:46 | EKG ---
Test Reason : Blood Pressure : / mmHG Vent. Rate : 061 BPM Atrial Rate : 061 BPM P-R Int : 164 ms QRS Dur : 086 ms QT Int : 448 ms P-R-T Axes : 001 -07 051 degrees QTc Int : 450 ms SINUS RHYTHM WITH OCCASIONAL ABERRANT COMPLEX OTHERWISE NORMAL ECG WHEN COMPARED WITH ECG OF 10-JUL-2017 12:28, SINUS RHYTHM HAS REPLACED ATRIAL FIBRILLATION VENT. RATE HAS DECREASED BY 51 BPM Confirmed by RAMAKRISHNA GAONA, MELVIN ([id number]) on 08/08/2017 1:46:13 AM Referred By: Confirmed By:MELVIN DURBIN MD
[2017-08-08] MEDS: FOLIC ACID 1 MG TABLET (FP) PO SCH (09:38)
[2017-08-08] MEDS: ASPIRIN COATED 81 MG TABLET.EC PO SCH (09:38)
[2017-08-08] MEDS: THIAMINE HCL 100 MG TABLET (FP) PO SCH (09:38)
[2017-08-08] MEDS: guaiFENesin 200 MG/10 ML 10 ML UNIT-DOSE CUPS PO PRN (09:39)
[2017-08-08] MEDS: HEPARIN NA (PORCINE) 5,000 UNITS/ML 1ML VIAL SQ SCH ×2 (09:40→22:35)
--- NOTE | 2017-08-08 10:38 | PN ---
Progress Note, Physician Chief Complaint: SOB, Lung mass, Pleural effusion History of Present Illness: NAD in bed RLL diminished breath sounds - Current Medication List Current Medications: Active Medications Acetaminophen (Tylenol -) 650 mg PO Q6H PRN PRN Reason: PAIN OR FEVER Albuterol/Ipratropium (Duoneb -) 1 amp NEB QIDR [facility] Last Admin: 08/08/17 06:26 Dose: 1 amp Aspirin (Ecotrin -) 81 mg PO DAILY [facility] Last Admin: 08/08/17 09:38 Dose: 81 mg Folic Acid (Folic Acid -) 1 mg PO DAILY [facility] Last Admin: 08/08/17 09:38 Dose: 1 mg Guaifenesin (Robitussin -) 5 ml PO Q6H PRN Last Admin: 08/08/17 09:39 Dose: 5 ml Heparin Sodium (Porcine) (Heparin -) 5,000 unit SQ BID [facility] Last Admin: 08/08/17 09:40 Dose: 5,000 unit Propranolol HCl (Inderal -) 40 mg PO BID [facility] Last Admin: 08/08/17 09:41 Dose: 40 mg Thiamine HCl (Vitamin B1 -) 100 mg PO DAILY [facility] Last Admin: 08/08/17 09:38 Dose: 100 mg - Objective Vital Signs: Vital Signs Temperature 97.8 F 08/08/17 09:00 Pulse Rate 62 08/08/17 09:00 Respiratory Rate 18 08/08/17 09:00 Blood Pressure 143/74 08/08/17 09:00 O2 Sat by Pulse Oximetry (%) 94 L 08/07/17 21:00 Constitutional: Yes: Well Nourished, No Distress, Calm Cardiovascular: Yes: Regular Rate and Rhythm Respiratory: Yes: Cough, Diminished (RLL), SOB on Exertion Gastrointestinal: Yes: Normal Bowel Sounds Musculoskeletal: Yes: WNL Extremities: Yes: WNL Edema: No Peripheral Pulses WNL: Yes Neurological: Yes: Alert, Pre-Existing Deficit Psychiatric: Yes: Alert Labs: CBC, BMP 08/05/17 07:25 08/05/17 07:25 INR, PTT INR 1.12 (0.82-1.09) 08/05/17 00:44 Problem List - Problems (1) Pleural effusion Assessment/Plan: -likely secondary to lung neoplasm -palliative pleurax -consult for IR -may benefit from palliative Code(s): J90 - PLEURAL EFFUSION, NOT ELSEWHERE CLASSIFIED (2) Lung mass Assessment/Plan: -on CT chest -has known about the mass, didn't want to get biopsy -likely a neoplasm Code(s): R91.8 - OTHER NONSPECIFIC ABNORMAL FINDING OF LUNG FIELD (3) Paroxysmal A-fib Assessment/Plan: -no chronic AC? -on heparin SQ -last EKG in SR Code(s): I48.0 - PAROXYSMAL ATRIAL FIBRILLATION Assessment/Plan see problem list conservative treatment DVT prophylaxis tried calling the next of kin, no one picked up, no voicemail set up, unable to leave message
--- NOTE | 2017-08-08 14:09 | PN ---
Progress Note (short form) - Note Progress Note: Still with dyspnea with minimal exertion. Noted that a consult was placed for IR for possible PleureX placement. Intake & Output 08/05/17 08/06/17 08/07/17 08/08/17 23:59 23:59 23:59 23:59 Intake Total 500 570 775 455 Output Total 100 Balance 500 470 775 455 Weight 128 lb 12.8 oz Last Vital Signs Temp Pulse Resp BP Pulse Ox 97.8 F 62 18 143/74 97 08/08/17 09:00 08/08/17 09:00 08/08/17 09:00 08/08/17 09:00 08/08/17 09:00 Active Medications Acetaminophen (Tylenol -) 650 mg PO Q6H PRN PRN Reason: PAIN OR FEVER Albuterol/Ipratropium (Duoneb -) 1 amp NEB QIDR [facility] Last Admin: 08/08/17 11:40 Dose: 1 amp Aspirin (Ecotrin -) 81 mg PO DAILY [facility] Last Admin: 08/08/17 09:38 Dose: 81 mg Folic Acid (Folic Acid -) 1 mg PO DAILY [facility] Last Admin: 08/08/17 09:38 Dose: 1 mg Guaifenesin (Robitussin -) 5 ml PO Q6H PRN Last Admin: 08/08/17 09:39 Dose: 5 ml Heparin Sodium (Porcine) (Heparin -) 5,000 unit SQ BID [facility] Last Admin: 08/08/17 09:40 Dose: 5,000 unit Propranolol HCl (Inderal -) 40 mg PO BID [facility] Last Admin: 08/08/17 09:41 Dose: 40 mg Thiamine HCl (Vitamin B1 -) 100 mg PO DAILY [facility] Last Admin: 08/08/17 09:38 Dose: 100 mg Constitutional: Yes: Mildly tachypneic at rest Eyes: Yes: WNL HENT: Yes: WNL Neck: Yes: WNL Cardiovascular: Yes: Pulse Irregular, S1, S2 Respiratory: Yes: Diminished at the bases, scattered rhonchi Gastrointestinal: Yes: Normal Bowel Sounds, Soft Extremities: Yes: WNL Edema: No Labs: Assessment/Plan Problem List - Problems (1) Pleural effusion Code(s): J90 - PLEURAL EFFUSION, NOT ELSEWHERE CLASSIFIED (2) Atrial fibrillation with rapid ventricular response Code(s): I48.91 - UNSPECIFIED ATRIAL FIBRILLATION (3) Dementia Code(s): F03.90 - UNSPECIFIED DEMENTIA WITHOUT BEHAVIORAL DISTURBANCE (4) Lung mass Code(s): R91.8 - OTHER NONSPECIFIC ABNORMAL FINDING OF LUNG FIELD Assessment/Plan ADVANCED LUNG CANCER PROBABLE MALIGNANT EFFUSION DEMENTIA AFIB PLAN THORACENTESIS WITH POSSIBLE PLEUREX PLACEMENT O2 NEEDED ASPIRATION PRECAUTIONS CONSERVATIVE/COMFORT MEASURES SECONDARY TO PTS POOR PERFORMANCE STATUS DR RODRIGUEZ
--- NOTE | 2017-08-08 16:21 | PN ---
Physical Exam: SUBJECTIVE: Patient seen and examined at bedside. Resting comfortably, in NAD. Intermittent productive cough. States that he is "feeling fine." Denies KATZ, fever, chills, changes in urinary or bowel habits. Overnight, no acute events. Pt has been afebrile. OBJECTIVE: Vital Signs Period Temp Pulse Resp BP Sys/Cosby Pulse Ox Last 24 Hr 97.5 F-99.0 F 52-62 18-18 115-174/51-82 94-97 GENERAL: The patient is resting comfortably in bed, NAD. AAOx2 (to self, place- knows in hospital today), intermittent cough. on 2L NC HEAD: Normal with no signs of trauma. EYES: PERRL, extraocular movements intact, mild scleral injection NECK: Trachea midline, supple. LUNGS: rhonchi appreciated b/l ABDOMEN: Soft, nontender, nondistended, normoactive bowel sounds, no guarding, no rebound. EXTREMITIES: 1+ posterior tibial pulses, warm, no edema NEUROLOGICAL: Cranial nerves II through XII grossly intact. Pt AAO x 2 (self, place) Active Medications Generic Name Dose Route Start Last Admin Trade Name Freq PRN Reason Stop Dose Admin Acetaminophen 650 mg 08/05/17 05:09 Tylenol - PO Q6H PRN PAIN OR FEVER Albuterol/Ipratropium 1 amp 08/07/17 12:00 08/08/17 11:40 Duoneb - NEB 1 amp QIDR KAREN Administration Aspirin 81 mg 08/05/17 10:00 08/08/17 09:38 Ecotrin - PO 81 mg DAILY KAREN Administration Folic Acid 1 mg 08/05/17 10:00 08/08/17 09:38 Folic Acid - PO 1 mg DAILY KAREN Administration Guaifenesin 5 ml 08/05/17 13:25 08/08/17 09:39 Robitussin - PO 5 ml Q6H PRN Administration Heparin Sodium (Porcine) 5,000 unit 08/05/17 10:00 08/08/17 09:40 Heparin - SQ 5,000 unit BID KAREN Administration Propranolol HCl 40 mg 08/05/17 10:00 08/08/17 09:41 Inderal - PO 40 mg BID KAREN Administration Thiamine HCl 100 mg 08/05/17 10:00 08/08/17 09:38 Vitamin B1 - PO 100 mg DAILY KAREN Administration ASSESSMENT/PLAN: #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
[2017-08-09] MEDS: ALBUTEROL SO4 2.5/IPRATROPIUM 0.5 INH SOL 3 ML VIAL.NEB. NEB SCH ×4 (06:30→23:32)
[2017-08-09] MEDS ORDERED: PT OWN MED DRAWER 7, Y5N ONE ×2 (09:44→21:39)
[2017-08-09] MEDS: FOLIC ACID 1 MG TABLET (FP) PO SCH (09:50)
[2017-08-09] MEDS: THIAMINE HCL 100 MG TABLET (FP) PO SCH (09:50)
--- NOTE | 2017-08-09 10:14 | PN ---
Progress Note, Physician Chief Complaint: SOB, Lung mass, Pleural effusion History of Present Illness: NAD in bed RLL diminished breath sounds -planned for right lung thoracentesis -Verbal consent obtained from niece Zahra Youngblood at witnessed by ANNIE Dominguez - Current Medication List Current Medications: Active Medications Acetaminophen (Tylenol -) 650 mg PO Q6H PRN PRN Reason: PAIN OR FEVER Albuterol/Ipratropium (Duoneb -) 1 amp NEB QIDR [facility] Last Admin: 08/09/17 06:30 Dose: 1 amp Aspirin (Ecotrin -) 81 mg PO DAILY [facility] Last Admin: 08/08/17 09:38 Dose: 81 mg Folic Acid (Folic Acid -) 1 mg PO DAILY [facility] Last Admin: 08/09/17 09:50 Dose: 1 mg Guaifenesin (Robitussin -) 5 ml PO Q6H PRN Last Admin: 08/08/17 09:39 Dose: 5 ml Heparin Sodium (Porcine) (Heparin -) 5,000 unit SQ BID [facility] Last Admin: 08/08/17 22:35 Dose: 5,000 unit Propranolol HCl (Inderal -) 40 mg PO BID [facility] Last Admin: 08/09/17 09:50 Dose: 40 mg Thiamine HCl (Vitamin B1 -) 100 mg PO DAILY [facility] Last Admin: 08/09/17 09:50 Dose: 100 mg - Objective Vital Signs: Vital Signs Temperature 97.8 F 08/09/17 09:49 Pulse Rate 52 L 08/09/17 09:49 Respiratory Rate 18 08/09/17 09:49 Blood Pressure 125/56 08/09/17 09:49 O2 Sat by Pulse Oximetry (%) 95 08/08/17 21:00 Constitutional: Yes: Well Nourished, No Distress, Calm Cardiovascular: Yes: Regular Rate and Rhythm Respiratory: Yes: Regular, Diminished (RLL) Gastrointestinal: Yes: Normal Bowel Sounds Edema: No Peripheral Pulses WNL: Yes Neurological: Yes: Alert, Pre-Existing Deficit Psychiatric: Yes: Alert Labs: CBC, BMP 08/05/17 07:25 08/05/17 07:25 INR, PTT INR 1.12 (0.82-1.09) 08/05/17 00:44 Problem List - Problems (1) Pleural effusion Assessment/Plan: -likely secondary to lung neoplasm -palliative pleurax -consult for IR -may benefit from palliative/hospice care post procedure, spoke to niece about it, education provided. Would re-evaluate again tomorrow. Code(s): J90 - PLEURAL EFFUSION, NOT ELSEWHERE CLASSIFIED (2) Lung mass Assessment/Plan: -on CT chest -has known about the mass, didn't want to get biopsy as per niece -likely a neoplasm Code(s): R91.8 - OTHER NONSPECIFIC ABNORMAL FINDING OF LUNG FIELD (3) Paroxysmal A-fib Assessment/Plan: -no chronic AC? -on heparin SQ -last EKG in SR Code(s): I48.0 - PAROXYSMAL ATRIAL FIBRILLATION Assessment/Plan see problem list conservative treatment DVT prophylaxis
[2017-08-09 12:35] LABS: PLEURAL FLUID APPEARANCE CLEAR; PLEURAL FLUID COLOR YELLOW
[2017-08-09 12:36] LABS: PLEURAL FLUID RBC 274 /mm3
[2017-08-09 12:40] LABS: GLUCOSE,PLEURAL FLUID 96.747; TOTAL PROTEIN,PLEURAL FLUID 3.173
--- NOTE | 2017-08-09 13:19 | PN ---
Progress Note, Physician History of Present Illness: pulmonary alert,-resp distress,s/p thoracentesis - Current Medication List Current Medications: Active Medications Acetaminophen (Tylenol -) 650 mg PO Q6H PRN PRN Reason: PAIN OR FEVER Albuterol/Ipratropium (Duoneb -) 1 amp NEB QIDR [facility] Last Admin: 08/09/17 11:42 Dose: 1 amp Aspirin (Ecotrin -) 81 mg PO DAILY [facility] Last Admin: 08/08/17 09:38 Dose: 81 mg Folic Acid (Folic Acid -) 1 mg PO DAILY [facility] Last Admin: 08/09/17 09:50 Dose: 1 mg Guaifenesin (Robitussin -) 5 ml PO Q6H PRN Last Admin: 08/08/17 09:39 Dose: 5 ml Heparin Sodium (Porcine) (Heparin -) 5,000 unit SQ BID [facility] Last Admin: 08/08/17 22:35 Dose: 5,000 unit Propranolol HCl (Inderal -) 40 mg PO BID [facility] Last Admin: 08/09/17 09:50 Dose: 40 mg Thiamine HCl (Vitamin B1 -) 100 mg PO DAILY [facility] Last Admin: 08/09/17 09:50 Dose: 100 mg - Objective Vital Signs: Vital Signs Temperature 97.8 F 08/09/17 09:49 Pulse Rate 52 L 08/09/17 09:49 Respiratory Rate 18 08/09/17 09:49 Blood Pressure 125/56 08/09/17 09:49 O2 Sat by Pulse Oximetry (%) 95 08/08/17 21:00 Constitutional: Yes: Calm, Thin Eyes: Yes: WNL HENT: Yes: WNL Neck: Yes: WNL Cardiovascular: Yes: Regular Rate and Rhythm, S1, S2 Respiratory: Yes: Diminished Gastrointestinal: Yes: Normal Bowel Sounds, Soft Extremities: Yes: WNL Edema: No Labs: Assessment/Plan Problem List - Problems (1) Pleural effusion Code(s): J90 - PLEURAL EFFUSION, NOT ELSEWHERE CLASSIFIED (2) Atrial fibrillation with rapid ventricular response Code(s): I48.91 - UNSPECIFIED ATRIAL FIBRILLATION (3) Dementia Code(s): F03.90 - UNSPECIFIED DEMENTIA WITHOUT BEHAVIORAL DISTURBANCE (4) Lung mass Code(s): R91.8 - OTHER NONSPECIFIC ABNORMAL FINDING OF LUNG FIELD Assessment/Plan ADVANCED LUNG CANCER PLEURAL EFFUSION LIKELY MALIGNANT DEMENTIA AFIB PLAN O2 CONSERVATIVE MANAGEMENT SECONDARY TO PTS POOR PERFORMANCE STATUS check pleural fluid cytology DR BELL
[2017-08-09 13:51] LABS: PLEURAL FLUID MESOTHELIAL 10 %
[2017-08-09 14:07] LABS: PLEURAL FLUID LYMPHOCYTES 40 %; PLEURAL FLUID NEUTROPHIL 18 %
[2017-08-09 14:09] LABS: PLEURAL FLUID BASOPHIL 25 %; PLEURAL FLUID MACROPHAGES 7 %
[2017-08-10] MEDS: ALBUTEROL SO4 2.5/IPRATROPIUM 0.5 INH SOL 3 ML VIAL.NEB. NEB SCH ×2 (06:28→11:16)
[2017-08-10] MEDS: FOLIC ACID 1 MG TABLET (FP) PO SCH (09:44)
[2017-08-10] MEDS: ASPIRIN COATED 81 MG TABLET.EC PO SCH (09:44)
[2017-08-10] MEDS: THIAMINE HCL 100 MG TABLET (FP) PO SCH (09:44)
[2017-08-10] MEDS: HEPARIN NA (PORCINE) 5,000 UNITS/ML 1ML VIAL SQ SCH (09:44)
[2017-08-10 09:54] VITALS: TEMP 97.9
--- NOTE | 2017-08-10 10:22 | PN ---
Progress Note, Physician Chief Complaint: SOB, Lung mass, Pleural effusion History of Present Illness: NAD in bed -RLL diminished breath sounds -right lung thoracentesis took out 1100 ml -cleared by pulmonary - Current Medication List Current Medications: Active Medications Acetaminophen (Tylenol -) 650 mg PO Q6H PRN PRN Reason: PAIN OR FEVER Albuterol/Ipratropium (Duoneb -) 1 amp NEB QIDR [facility] Last Admin: 08/10/17 06:28 Dose: 1 amp Aspirin (Ecotrin -) 81 mg PO DAILY [facility] Last Admin: 08/10/17 09:44 Dose: 81 mg Folic Acid (Folic Acid -) 1 mg PO DAILY [facility] Last Admin: 08/10/17 09:44 Dose: 1 mg Guaifenesin (Robitussin -) 5 ml PO Q6H PRN Last Admin: 08/08/17 09:39 Dose: 5 ml Heparin Sodium (Porcine) (Heparin -) 5,000 unit SQ BID [facility] Last Admin: 08/10/17 09:44 Dose: 5,000 unit Propranolol HCl (Inderal -) 40 mg PO BID [facility] Last Admin: 08/10/17 09:45 Dose: 40 mg Thiamine HCl (Vitamin B1 -) 100 mg PO DAILY [facility] Last Admin: 08/10/17 09:44 Dose: 100 mg - Objective Vital Signs: Vital Signs Temperature 97.9 F 08/10/17 09:54 Pulse Rate 53 L 08/10/17 09:54 Respiratory Rate 18 08/10/17 09:54 Blood Pressure 126/63 08/10/17 09:54 O2 Sat by Pulse Oximetry (%) 95 08/09/17 21:00 Constitutional: Yes: Well Nourished, No Distress, Calm Cardiovascular: Yes: Regular Rate and Rhythm Respiratory: Yes: Regular Gastrointestinal: Yes: Normal Bowel Sounds Musculoskeletal: Yes: WNL Extremities: Yes: WNL Edema: No Peripheral Pulses WNL: Yes Neurological: Yes: Alert, Pre-Existing Deficit Psychiatric: Yes: Alert Labs: CBC, BMP 08/05/17 07:25 08/05/17 07:25 INR, PTT INR 1.12 (0.82-1.09) 08/05/17 00:44 Problem List - Problems (1) Pleural effusion Assessment/Plan: -likely secondary to lung neoplasm -Thoracentesis took out 1100 ml -Cleared by pulmonary to go back to [facility] Code(s): J90 - PLEURAL EFFUSION, NOT ELSEWHERE CLASSIFIED (2) Lung mass Assessment/Plan: -on CT chest -has known about the mass, didn't want to get biopsy as per niece -likely a neoplasm Code(s): R91.8 - OTHER NONSPECIFIC ABNORMAL FINDING OF LUNG FIELD (3) Paroxysmal A-fib Assessment/Plan: -no chronic AC? -on heparin SQ -last EKG in SR Code(s): I48.0 - PAROXYSMAL ATRIAL FIBRILLATION Assessment/Plan see problem list conservative treatment DVT prophylaxis
--- NOTE | 2017-08-10 10:32 | DS ---
Physical Examination Vital Signs: Vital Signs Temperature 97.9 F 08/10/17 09:54 Pulse Rate 53 L 08/10/17 09:54 Respiratory Rate 18 08/10/17 09:54 Blood Pressure 126/63 08/10/17 09:54 O2 Sat by Pulse Oximetry (%) 95 08/09/17 21:00 Constitutional: Yes: Well Nourished, No Distress, Calm Cardiovascular: Yes: Regular Rate and Rhythm Respiratory: Yes: Regular Gastrointestinal: Yes: Normal Bowel Sounds, Soft Musculoskeletal: Yes: WNL Extremities: Yes: WNL Edema: No Peripheral Pulses WNL: Yes Neurological: Yes: Alert, Pre-Existing Deficit Psychiatric: Yes: Alert Labs: CBC, BMP 08/05/17 07:25 08/05/17 07:25 Discharge Summary Reason For Visit: PNEUMONIA Current Active Problems Paroxysmal A-fib (Acute) Pleural effusion (Acute) Pneumonia (Acute) Hospital Course: This is an 87 year old male with a past medical history of Afib and RUL lung mass presented to the ED from his long-term with pneumonia. Pt was treated with po levaquin x 7 days. He remains with a persistent cough and was sent to the ED for admission. Upon exam pt denies pain, SOB, discomfort. States he is feeling "ok". During his stay, Thoracentesis of RLL was performed which put out 1100 ml. Spoke to Niece, wants comfort care. Condition: Stable - Instructions Referrals: John Dawson MD [Primary Care Provider] - Disposition: [facility] - Home Medications Comprehensive Discharge Medication List: Ambulatory Orders Aspirin Coated [Ecotrin -] 81 mg PO DAILY #30 tablet.ec 07/05/17 Folic Acid 1 mg PO DAILY #30 tablet 07/05/17 Propranolol HCl 40 mg PO BID 07/12/17 Acetaminophen [Tylenol -] 650 mg PO Q4H 08/05/17 Robitussin Long-Acting Liq 5 ml PO ASDIR 08/05/17 Thiamine Mononitrate [Vitamin B-1] 100 mg PO DAILY 08/05/17
--- NOTE | 2017-08-10 12:08 | PN ---
Progress Note (short form) - Note Progress Note: Clinically appears better. Some residual cough, MARKS better. 1100 cc transudative type obtained from thoracentesis. Intake & Output 08/07/17 08/08/17 08/09/17 08/10/17 23:59 23:59 23:59 23:59 Intake Total 775 1080 1270 400 Balance 775 1080 1270 400 Last Vital Signs Temp Pulse Resp BP Pulse Ox 97.9 F 59 L 18 126/63 95 08/10/17 09:54 08/10/17 11:40 08/10/17 09:54 08/10/17 09:54 08/10/17 11:40 Active Medications Acetaminophen (Tylenol -) 650 mg PO Q6H PRN PRN Reason: PAIN OR FEVER Albuterol/Ipratropium (Duoneb -) 1 amp NEB QIDR [facility] Last Admin: 08/10/17 11:16 Dose: 1 amp Aspirin (Ecotrin -) 81 mg PO DAILY [facility] Last Admin: 08/10/17 09:44 Dose: 81 mg Folic Acid (Folic Acid -) 1 mg PO DAILY [facility] Last Admin: 08/10/17 09:44 Dose: 1 mg Guaifenesin (Robitussin -) 5 ml PO Q6H PRN Last Admin: 08/08/17 09:39 Dose: 5 ml Heparin Sodium (Porcine) (Heparin -) 5,000 unit SQ BID [facility] Last Admin: 08/10/17 09:44 Dose: 5,000 unit Propranolol HCl (Inderal -) 40 mg PO BID [facility] Last Admin: 08/10/17 09:45 Dose: 40 mg Thiamine HCl (Vitamin B1 -) 100 mg PO DAILY [facility] Last Admin: 08/10/17 09:44 Dose: 100 mg Constitutional: Yes: NAD Eyes: Yes: WNL HENT: Yes: WNL Neck: Yes: WNL Cardiovascular: Yes: Pulse Irregular, S1, S2 Respiratory: Yes: Diminished at the bases, scattered rhonchi Gastrointestinal: Yes: Normal Bowel Sounds, Soft Extremities: Yes: WNL Edema: No Labs: Laboratory Results - last 24 hr 08/09/17 11:30 Pleural Fluid Source Pleural Pleural Color Yellow Pleural Appearance Clear Pleural WBC 201 Pleural RBC 274 Pleural Neutrophils 18 Pleural Lymphocytes 40 Pleural Basophils 25 Pleural Macrophages 7 Pleural Mesothelial 10 Pleural Total Protein 3.173 Pleural Albumin 2 Pleural LDH 128 Pleural Glucose 96.747 Pleural Amylase 31.694 Pleural Triglycerides 15 Assessment/Plan Problem List - Problems (1) Pleural effusion Code(s): J90 - PLEURAL EFFUSION, NOT ELSEWHERE CLASSIFIED (2) Atrial fibrillation with rapid ventricular response Code(s): I48.91 - UNSPECIFIED ATRIAL FIBRILLATION (3) Dementia Code(s): F03.90 - UNSPECIFIED DEMENTIA WITHOUT BEHAVIORAL DISTURBANCE (4) Lung mass Code(s): R91.8 - OTHER NONSPECIFIC ABNORMAL FINDING OF LUNG FIELD Assessment/Plan ADVANCED LUNG CANCER PROBABLE MALIGNANT EFFUSION DEMENTIA AFIB PLAN PO ABX TO COMPLETE COURSE ASPIRATION PRECAUTIONS CONSERVATIVE/COMFORT MEASURES SECONDARY TO PTS POOR PERFORMANCE STATUS D/C TO SNF DR RODRIGUEZ
[2017-08-10 14:33] VITALS: BP 130/57; PULSE 48
--- NOTE | 2017-08-11 16:53 | PATH ---
Cytology Non-Gynecological Report Patient Name: ALBER BOSS [facility]. Rec. #: [id number] /Age/Gender: 1930 (Age: 87) / M Account: [id number] Location: [address] [place] [address] Taken: 08/09/2017 Received: 08/09/2017 Reported: 08/11/2017 Physicians: Mylene Govea M.D. Specimen(s) Received A: PLEURAL FLUID B: PLEURAL FLUID Clinical History Pleural effusion and lung mass Final Diagnosis A & B. PLEURAL FLUID, THORACENTESIS: SATISFACTORY FOR EVALUATION. POSITIVE FOR MALIGNANCY. ADENOCARCINOMA. Comment: Scant evidence. Few atypical cells with mild nuclear enlargement, hyperchromasia, increased nucleus to cytoplasmic ratio in a background of scattered neutrophils and proteinaceous debris. Immunohistochemical stains performed and interpreted at [facility] show the atypical cells are positive for CK-7 and TTF-1. Additional immunohistochemical stains performed at [place], [place] ([id number]) and interpreted at [facility] show the atypical cells are positive for CLARENCE and Napsin-A, while negative for MOC-31 and D2- 40. Scattered CD68+ macrophages are noted. Overall findings show an adenocarcinoma, favor lung origin. Right upper lobe mass is noted. Suggest clinical/radiological correlation. Office of Mylene Ruvalcaba informed that significant findings will be faxed Electronically Signed Dodie Danielle M.D. Gross Description A. Approximately 50 cc of yellow fluid received fixed in 50% alcohol. Two cytofunnels and one cellblock prepared. B. Approximately 1200 cc of yellow fluid received fresh. Two cytofunnels and one cellblock prepared.
== END 2017-08-10 16:33 | DRG 180 ==
LOC: JER 23:34 → JERBED 08-05 03:19 → J5S 08-05 04:24
PROVIDERS: ADMIT Internal Medicine; ATTEND Family Medicine
PROC: 0W993ZX Drainage of Right Pleural Cavity, Percutaneous Approach, Diagnostic (ICD-10-PCS; principal; 2017-08-09)
DX: C34.90 Malignant neoplasm of unspecified part of unspecified bronchus or lung (principal); J18.9 Pneumonia, unspecified organism; G91.2 (Idiopathic) normal pressure hydrocephalus; R64 Cachexia; J91.0 Malignant pleural effusion; I27.20 Pulmonary hypertension, unspecified; F03.90 Unspecified dementia, unspecified severity, without behavioral disturbance, psychotic disturbance, mood disturbance, and anxiety; M10.9 Gout, unspecified; E86.1 Hypovolemia; Y95 Nosocomial condition; I48.0 Paroxysmal atrial fibrillation
CPT/HCPCS: 36415; 71010-TC; 71250-TC; 76942; 80048; 80053; 82042; 82150; 82550; 82803; 82945; 83605; 83615; 83735; 84100; 84157; 84478; 84484; 85025; 85610; 85730; 86850; 86900; 86901; 87040; 87070; 87075; 87086; 87102; 87116; 87205; 87206; 87210; 87899; 88108; 88305-TC; 88341-TC; 89051; 93005; 93010; 94640; 97116-GP; 97161-GP; 99284-25; J1644